=== PATIENT | female | born 1975 | race Caucasian/White ===

== ENCOUNTER 2023-04-24 06:28 | Outpatient (OUT) | payer BC, SELFPAY ==
[2023-04-24 06:47] LABS: Basophils Absolute Auto 0.1 10^3/uL (0.0-0.1); Basophils Percent Auto 0.7 % (0.2-2.0); Eosinophils Absolute Auto 0.5 10^3/uL (0.0-0.7); Eosinophils Percent Auto 3.4 % (0.9-7.0); Hemoglobin 14.5 g/dL (12.0-16.0); Immature Granulocytes Abs Auto 0.05 10^3/uL (0.00-0.03); Immature Granulocytes Pct Auto 0.3 % (0.0-0.5); Lymphocytes Absolute Auto 3.4 10^3/uL (1.2-3.8); Lymphocytes Percent Auto 22.7 % (20.5-60.0); Mean Corpuscular HGB Conc 33.7 g/dL (29.9-35.2); Mean Corpuscular Volume 91.9 fL (81.0-99.0); Mean Platelet Volume 10.7 fL (9.5-13.5); Monocytes Absolute Auto 1.2 10^3/uL (0.3-0.8); Monocytes Percent Auto 8.3 % (1.7-12.0); Neutrophils Absolute Auto 9.5 10^3/uL (1.4-6.5); Neutrophils Percent Auto 64.6 % (43.0-75.0); Platelet Count 314 10^3/uL (150-450); Red Blood Count 4.68 10^6/uL (4.20-5.40); Red Cell Distribution Width 12.8 % (11.0-15.0); White Blood Count 14.8 10^3/uL (4.0-11.0)
[2023-04-24 07:15] LABS: Estimated Average Glucose 120 mg/dL; Glycohemoglobin A1C 5.8 % (4.5-6.2)
[2023-04-24 08:04] LABS: Anion Gap 15.7; Carbon Dioxide 24.1 mmol/L (21.0-32.0); Chloride 105 mmol/L (98-107); Glucose 96 mg/dL (74-106); Potassium 3.8 mmol/L (3.5-5.1); Sodium 141 mmol/L (136-145)
[2023-04-24 08:05] LABS: Alanine Aminotransferase 25 U/L (14-59); Albumin Globulin Ratio 0.9; Albumin Level 3.5 g/dL (3.4-5.0); Alkaline Phosphatase 76 U/L (46-116); Aspartate Amino Transferase 12 U/L (15-37); BUN Creatinine Ratio 16.5; Bilirubin Total 0.3 mg/dL (0.2-1.0); Estimated GFR (African America >60 (>=60); Estimated GFR (Non-African Ame >60 (>=60); Total Protein 7.5 g/dL (6.4-8.2); Triglycerides 152 mg/dL (<=150); VLDL CHOLESTEROL 30.4 mg/dL
[2023-04-24 08:06] LABS: Cholesterol 251 mg/dL (<=200); HDL Cholesterol 63 mg/dL (40-60); TSH W/ REFLEX FT4 1.715 uIU/mL (0.358-3.740)
[2023-04-25 05:07] LABS: HCV Ab Non Reactive (Non Reactive); HIV Ab/p24 Ag Screen Non Reactive (Non Reactive)
== END 2023-04-24 06:29 | disposition home or self-care (01) ==
LOC: LAB 06:28
PROVIDERS: PCP Nurse Practitioner Primary Care; Visit Provider Nurse Practitioner Primary Care
DX: Z00.00 Encounter for general adult medical examination without abnormal findings (principal); Z11.59 Encounter for screening for other viral diseases; Z11.4 Encounter for screening for human immunodeficiency virus [HIV]; Z13.6 Encounter for screening for cardiovascular disorders; Z13.29 Encounter for screening for other suspected endocrine disorder
CPT/HCPCS: 36415; 80053; 80061; 83036; 84443; 85025; 86803; 87389

== ENCOUNTER 2023-04-25 08:51 | Outpatient (OUT) | payer BC, SELFPAY ==
--- OUTSIDE RECORDS SUMMARY | 2023-04-25 08:53 | XMS_ITS | CCD ---
Author Name Unknown Address [address] [place] [address] Organization [facility] Care Team Providers Care Mine Foreman Name Role Phone LASHAWN, MARYJO Admitting Unavailable HOY ., DR GUERRIER Primary Care Unavailable LASHAWN, MARYJO Attending Unavailable LASHAWN, MARYJO Consulting Unavailable HEMMER, DR JL Pradhan Consulting Unavailable HOY ., DR GUERRIER Primary Care Unavailable LASHAWN, MARYJO Admitting Unavailable LASHAWN, MARYJO Attending Unavailable LASHAWN, MARYJO Consulting Unavailable LASHAWN, MARYJO Admitting Unavailable HOY ., DR GUERRIER Primary Care Unavailable LASHAWN, MARYJO Attending Unavailable LASHAWN, MARYJO Consulting Unavailable HOY ., DR GUERRIER Primary Care Unavailable LASHAWN, MARYJO Admitting Unavailable LASHAWN, MARYJO Attending Unavailable LASHAWN, MARYJO Consulting Unavailable HOY ., DR GUERRIER Primary Care Unavailable LASHAWN, MARYJO Admitting Unavailable LASHAWN, MARYJO Attending Unavailable LASHAWN, MARYJO Consulting Unavailable Allergies Allergy Classification Reported Allergen(s) Allergy Type Date of Onset Reaction(s) Facility (1 source) metroNIDAZOLE Drug Allergy 03-02-2014 [facility] Repository Problems Active Problems Problem Classification Problem Date Documented Da te Episodic/Chronic Immunizations and screening for infectious disease (1 source) Encounter for screening for other infectious and parasitic diseases; Translations: [ENC SCREENING OTH INF PARASITIC DZ] Onset: 07-09-2022 Episodic Unclassified (3 sources) CONTACT W/AND (SUSP) EXPOS COVID-19; Translations: [CONTACT W/AND (SUSP) EXPOS COVID-19] Onset: 07-09-2022 Viral infection (1 source) COVID-19; Translations: [COVID-19] Onset: 01-11-2022 Past or Other Problems Problem Classification Problem Date Documented Da te Episodic/Chronic Unclassified (1 source) CONTACT W/AND (SUSP) EXPOS COVID-19; Translations: [CONTACT W/AND (SUSP) EXPOS COVID-19] Onset: 06-29-2022 Results Test Name Value Interpretation Reference Range Facil ity INFLUENZA A AND B AGon 06-29 INFLUBNEGH SEE BELOW Normal [facility] Comment on above: Result Comment: Nega tive for Flu B protein antigen. Infection due to Flu B cannot be ruled out. Flu B antigen in the sample may be below the detection limit of the test. Performed By: #### I NFLUAB #### [facility] [address] [place] [address] Dr. Minoo Mcguire INFLUENZA A AG Positive Abnormal NEGATIVE SEE COMMENT [facility] Comment on above: Performed By: #### I NFLUAB #### [facility] [address] [place] [address] Dr. Minoo Mcguire INFLUENZA B AG Negative Normal NEGATIVE SEE COMMENT [facility] Comment on above: Performed By: #### I NFLUAB #### [facility] [address] [place] [address] Dr. Minoo Mcguire INFLUPOSH SEE BELOW Normal [facility] Comment on above: Result Comment: NOTE : Live attenuated influenzae vaccine viruses can cause a positive result for a rapid influenza diagnostic test if administered up to 7 days prior to rapid testing. Performed By: #### I NFLUAB #### [facility] [address] [place] [address] Dr. Minoo Mcguire SYMPTOMATIC COVID-19 ANTIGEN on 06-29-2022 EUA Statement SEE BELOW Normal The [facility] Comment on above: Result Comment: This test has not been FDA cleared or approved, but has been authorized by the FDA under an Emergency Use Authorization (EUA) for use by authorized laboratories certified under CLIA that meet the requirements to perform moderate or high complexity testing. This test has been authorized only for the detection of proteins from SARS-CoV-2, not for any other viruses or pathogens. The emergency use of this test is authorized for the duration of the declaration that circumstances exist justifying the authorization of emergency use of in vitro diagnostic tests for detection and/or diagnosis of Covid-19 under section 564(b)(1) of the Act, 21 U.S.C. 360bbb-3(b)(1), unless the declaration is terminated or authorization is revoked sooner. Performed By: #### C ELIASS #### [facility] [address] [place] [address] Dr. Minoo Mcguire SARS-CoV-2 (COVID-19) RNA NARINDER+probe Ql (Unsp spec) Negative Normal NEGATIVE [facility] Comment on above: Performed By: #### C VDAGS #### [facility] [address] [place] [address] Dr. Minoo Mcguire ASYMPTOMATIC COVID-19 ANTIGE Non 01-10-2022 EUA Statement SEE BELOW Normal [facility] Comment on above: Result Comment: This test has not been FDA cleared or approved, but has been authorized by the FDA under an Emergency Use Authorization (EUA) for use by authorized laboratories certified under CLIA that meet the requirements to perform moderate or high complexity testing. This test has been authorized only for the detection of proteins from SARS-CoV-2, not for any other viruses or pathogens. The emergency use of this test is authorized for the duration of the declaration that circumstances exist justifying the authorization of emergency use of in vitro diagnostic tests for detection and/or diagnosis of Covid-19 under section 564(b)(1) of the Act, 21 U.S.C. 360bbb-3(b)(1), unless the declaration is terminated or authorization is revoked sooner. Performed By: #### C VDAGA #### [facility] [address] [place] [address] Dr. Minoo Mcguire SARS-CoV-2 (COVID-19) RNA NARINDER+probe Ql (Unsp spec) Negative Normal NEGATIVE [facility] Comment on above: Result Comment: Nega tive results are presumptive. They do not preclude infection and should not be used as the sole basis for treatment decisions. Additional confirmatory testing by a molecular method should be considered. Performed By: #### C VDAGA #### [facility] [address] [place] [address] Dr. Minoo Mcguire [facility]on SARS-CoV-2 (COVID-19) RNA NARINDER+probe Ql (Unsp spec) Detected Critically abnormal NOT DETECTED [facility] Comment on above: Result Comment: This test is not yet approved or cleared by the [place] FDA. When there are no FDA-approved or cleared tests available, and other criteria are met, FDA can make tests available under an emergency access mechanism called an Emergency Use Authorization (EUA). The EUA for this test is supported by the Fermentation Scientist of Health and Human Service's declaration that circumstances exist to justify the emergency use of in vitro diagnostics for the detection and/or diagnosis of the virus that causes COVID-19. This EUA will remain in effect for the duration of the COVID-19 declaration justifying emergency of IVDs, unless it is terminated or revoked by the FDA (after which the test may no longer be used). Performed By: #### C VDTB #### [facility] [address] [place] [address] Dr. Minoo Mcguire SYMPTOMATIC COVID-19 ANTIGEN on 01-08-2022 EUA Statement SEE BELOW Normal [facility] Comment on above: Result Comment: This test has not been FDA cleared or approved, but has been authorized by the FDA under an Emergency Use Authorization (EUA) for use by authorized laboratories certified under CLIA that meet the requirements to perform moderate or high complexity testing. This test has been authorized only for the detection of proteins from SARS-CoV-2, not for any other viruses or pathogens. The emergency use of this test is authorized for the duration of the declaration that circumstances exist justifying the authorization of emergency use of in vitro diagnostic tests for detection and/or diagnosis of Covid-19 under section 564(b)(1) of the Act, 21 U.S.C. 360bbb-3(b)(1), unless the declaration is terminated or authorization is revoked sooner. Performed By: #### C VDAGS #### [facility] [address] [place] [address] Dr. Minoo Mcguire SARS-CoV-2 (COVID-19) RNA NARINDER+probe Ql (Unsp spec) Positive Critically abnormal NEGATIVE [facility] Comment on above: Performed By: #### C VDAGS #### [facility] [address] [address] [address] Minoo Mcguire SYMPTOMATIC COVID-19 ANTIGEN on 01-01-2022 EUA Statement SEE BELOW Normal [facility] Comment on above: Result Comment: This test has not been FDA cleared or approved, but has been authorized by the FDA under an Emergency Use Authorization (EUA) for use by authorized laboratories certified under CLIA that meet the requirements to perform moderate or high complexity testing. This test has been authorized only for the detection of proteins from SARS-CoV-2, not for any other viruses or pathogens. The emergency use of this test is authorized for the duration of the declaration that circumstances exist justifying the authorization of emergency use of in vitro diagnostic tests for detection and/or diagnosis of Covid-19 under section 564(b)(1) of the Act, 21 U.S.C. 360bbb-3(b)(1), unless the declaration is terminated or authorization is revoked sooner. Performed By: #### C VDAGS #### [facility] [address] [address] [address] Minoo Mcguire SARS-CoV-2 (COVID-19) RNA NARINDER+probe Ql (Unsp spec) Positive Critically abnormal NEGATIVE [facility] Comment on above: Performed By: #### C VDAGS #### [facility] [address] [address] [address] Minoo Mcguire Encounters Encounter Date Encounter Type Care Provider Facility Start: 06-29-2022 End: 06-29-[address] FAREED BRONSON . Facility:[facility] Start: 01-10-2022 End: 01-10-[address] FAREED BRONSON . Facility:[facility] Start: 01-09-2022 End: 01-09-2022 ambulatory MARYJO HARDIN Facility:[facility] Start: 01-08-2022 End: 01-08-[address] FAREED BRONSON . Facility:[facility] Start: 01-01-2022 End: 01-01-2022 ambulatory MARYJO HARDIN Facility:[facility] Payers Date Payer Category Payer Unknown [id number] 2019 Unknown [id number] 1975 Unknown [id number] 2.16.84 [id number] 1975 Unknown [id number] 2.16.84 [id number] 1975 Unknown [id number] 2.16.84 [id number] 1975 Unknown [id number] 2.16.84 [id number] 1975 Unknown [id number] 2.16.84 [id number] Summary Purpose Family History No Family History Records Found Advance Directives No Advanced Directives Records Found Additional Source Comments INFORMATION SOURCE (unrecogn ized section and content) DATE CREATED AUTHOR 07/12/2022 [facility] FOR RECORDS PERTAINING TO PATIENTS WHO ARE OR HAVE BEEN ENROLLED IN A CHEMICAL DEPENDENCY/SUBSTANCEABUSE PROGRAM, SOME INFORMATION MAY BE OMITTED. This clinical summary was aggregated from multiple sources. Caution should be exercised in using it in the provision of clinical care. This summary normalizes information from multiple sources, and as a consequence, information in this document may materially change the coding, format and clinical context of patient data. In addition, data may be omitted in some cases. CLINICAL DECISIONS SHOULD BE BASED ON THE PRIMARY CLINICAL RECORDS. [facility] [facility]. provides no warranty or guarantee of the accuracy or completeness of information in this document.
--- NOTE | 2023-04-25 08:54 | MM_ITS ---
Patient Name: JOSIAH HANSEN MR#: [id number] : 1975 Exam Date: 04/25/2023 Ordering Doctor: JOHAN TOMAS RADIOLOGY REPORT PROCEDURE: MM TOMOSYNTHESIS SCREENING BI COMPARISON: MG MAMM SCREEN MARGY W CAD, 01/09/2018. MAMMO MARGY SCREEN, 06/29/2021. INDICATIONS: Screening Calculator Name NCI Breast Cancer Risk Assessment Tool 5 Year Breast Cancer Risk 0.60% Lifetime Breast Cancer Risk 6.10% Personal Breast Cancer No Personal Ovarian Cancer No Treatments None Family Cancers Grandmother-paternal with breast cancer at age 70; Uncle-maternal with lung cancer at age 72. LOCATION: [facility] BREAST COMPOSITION: Heterogeneously dense,which may obscure small masses. FINDINGS: DIAGNOSTIC CATEGORY 2--BENIGN FINDING. NO CHANGE FROM COMPARISON. Scattered benign-appearing calcifications are present. Scattered benign-appearing lymph nodes are present. RIGHT BREAST: No significant suspicious finding. LEFT BREAST: No significant suspicious finding. RECOMMENDATIONS: ROUTINE MAMMOGRAM AND CLINICAL EVALUATION IN 12 MONTHS. PLEASE NOTE: A NORMAL MAMMOGRAM DOES NOT EXCLUDE THE POSSIBILITY OF BREAST CANCER. A CLINICALLY SUSPICIOUS PALPABLE LUMP SHOULD BE BIOPSIED. Dictated by: Orville Hoffmann MD on 04/29/2023 at 08:06 Approved by: Orville Hoffmann MD on 04/29/2023 at 08:08
== END 2023-04-25 08:52 | disposition home or self-care (01) ==
LOC: MAMMO 08:52
PROVIDERS: PCP Nurse Practitioner Primary Care; Visit Provider Nurse Practitioner Primary Care
DX: Z12.31 Encounter for screening mammogram for malignant neoplasm of breast (principal); Z80.3 Family history of malignant neoplasm of breast; Z80.1 Family history of malignant neoplasm of trachea, bronchus and lung
CPT/HCPCS: 77063; 77067

== ENCOUNTER 2023-08-05 07:58 | Outpatient (OUT) | payer BC, SELFPAY ==
--- OUTSIDE RECORDS SUMMARY | 2023-08-05 08:01 | XMS_ITS | CCD ---
Author Organization [facility] Care Team Providers Care Protein Scientist Name Role Phone KAYLEE HARDINISTINA Admitting Unavailable HOY ., DR GUERRIER Primary Care Unavailable LASHAWN, MARYJO Attending Unavailable LASHAWN, MARYJO Consulting Unavailable HEMMER, DR LJ Pradhan Consulting Unavailable HOY ., DR GUERRIER [...] MARYJO Attending Unavailable LASHAWN, MARYJO Consulting Unavailable AGUEDA LEDESMA Attending Unavailable Allergies Allergy Classification Reported Allergen(s) Allergy Type Date of Onset Reaction(s) Facility (1 source) metroNIDAZOLE Drug Allergy 03-02-2014 [facility] Repository Problems Active Problems Problem Classification [...] Results Test Name Value Interpretation Reference Range Saloni flanagan Provider Letteron 05-07-2023 Provider Letter May 07, 2023 JOSIAH ARRINGTON [address] [place] [address] : 1975 Dear Ms. Arrington, We have been trying to reach you with no success regarding a referral from [facility]. It is important that you return our call upon receiving this letter so that we can set up an appointment for you. Also, at the time of your call, please provide us with your current demographic and insurance information. Thank you for your prompt attention to this matter. Sincerely, [facility] General Surgery [phone] [facility] Physician Referralon 024 Physician Referral [phone] [id number] Normal [facility] INFLUENZA A AND B AGon 06-29 INFLUBNEGH SEE BELOW Normal [facility] Comment on above: Result Comment: Nega tive for Flu B protein antigen. Infection due to Flu B cannot be ruled out. Flu B antigen in the sample may be below the detection limit of the test. Performed By: #### I NFLUAB #### [facility] [address] [place] [address] Dr. Minoo Mcguire INFLUENZA A AG Positive Abnormal NEGATIVE SEE COMMENT [facility] Comment on above: Performed By: #### I NFLUAB #### [facility] [address] [place] [address] Dr. Minoo Mcguire INFLUENZA B AG Negative Normal NEGATIVE SEE COMMENT [facility] Comment on above: Performed By: #### I NFLUAB #### [facility] [address] [place] [address] Dr. Minoo Mcguire INFLUPOSH SEE BELOW Normal [facility] Comment on above: Result Comment: NOTE : Live attenuated influenzae vaccine viruses can cause a positive result for a rapid influenza diagnostic test if administered up to 7 days prior to rapid testing. Performed By: #### I NFLUAB #### [facility] [address] [place] [address] Dr. Minoo Mcguire SYMPTOMATIC COVID-19 ANTIGEN on 06-29-2022 EUA Statement SEE BELOW Normal [facility] Comment on above: Result Comment: This [...] sooner. Performed By: #### C VDAGS #### [facility] [address] [place] [address] Dr. Minoo Mcguire SARS-CoV-2 (COVID-19) RNA NARINDER+probe Ql (Unsp spec) Negative Normal NEGATIVE [facility] Comment on above: Performed By: #### C VDAGS #### [facility] [address] [place] [address] Dr. Minoo Mcguire ASYMPTOMATIC COVID-19 ANTIGE Non 01-10-2022 EUA Statement SEE BELOW Normal [facility] Comment on above: Result Comment: This [...] sooner. Performed By: #### C VDAGA #### [facility] [address] [place], [place] [address] Dr. Minoo Mcguire SARS-CoV-2 (COVID-19) RNA NARINDER+probe Ql (Unsp spec) Negative Normal NEGATIVE [facility] Comment on above: Result Comment: Nega tive results are presumptive. They do not preclude infection and should not be used as the sole basis for treatment decisions. Additional confirmatory testing by a molecular method should be considered. Performed By: #### C VDAGA #### [facility] [address] [place], [place] [address] Dr. Minoo Mcguire Covid-19 PCR (CVDTB)on SARS-CoV-2 (COVID-19) RNA NARINDER+probe Ql (Unsp spec) Detected Critically abnormal NOT DETECTED [facility] Comment on above: Result Comment: This test is not yet approved or cleared by the [place] FDA. When there are no FDA-approved or cleared tests available, and other criteria are met, FDA can make tests available under an emergency access mechanism called an Emergency Use Authorization (EUA). The EUA for this test is supported by the Shipmaster of Health and Human Service's declaration that [...] longer be used). Performed By: #### C VDTBH #### [facility] [address] [place], [place] [address] Dr. Minoo Mcguire SYMPTOMATIC COVID-19 ANTIGEN on 01-08-2022 EUA Statement SEE BELOW Normal [facility] Comment on above: Result Comment: This [...] sooner. Performed By: #### C VDAGS #### [facility] [address] [place] [address] Dr. Minoo Mcguire SARS-CoV-2 (COVID-19) RNA NARINDER+probe Ql (Unsp spec) Positive Critically abnormal NEGATIVE [facility] Comment on above: Performed By: #### C VDAGS #### [facility] [address] [place] [address] Dr. Minoo Mcguire SYMPTOMATIC COVID-19 ANTIGEN on 01-01-2022 EUA Statement SEE BELOW Normal [facility] Comment on above: Result Comment: This [...] sooner. Performed By: #### C VDAGS #### [facility] [address] [place] [address] Dr. Minoo Mcguire SARS-CoV-2 (COVID-19) RNA NARINDER+probe Ql (Unsp spec) Positive Critically abnormal NEGATIVE [facility] Comment on above: Performed By: #### C VDAGS #### [facility] [address] [place] [address] Dr. Minoo Mcguire Encounters Encounter Date Encounter Type Care Provider Facility Start: 07-25-2023 End: 07-25-2023 ambulatory AGUEDA LEDESMA Not Available Start: 04-23-2023 ambulatory Facility:[facility] Start: 06-29-2022 End: 06-29-[address] FAREED BROSNON . Facility:[facility] Start: 01-10-2022 End: 01-10-[address] FAREED BRONSON . Facility:[facility] Start: 01-09-2022 End: 01-09-2022 ambulatory MARYJO HARDIN Facility:[facility] Start: 01-08-2022 End: 01-08-[address] FAREED BRONSON . Facility:[facility] Start: 01-01-2022 End: 01-01-2022 ambulatory MARYJO LASHAWN Facility:[facility] Payers Date Payer Category Payer Unknown [id number] 2019 Unknown [id number] 1975 Unknown [id number] 2.16.84 [id number] 1975 Unknown [id number] 2.16.84 [id number] 1975 Unknown [id number] 2.16.84 [id number] 1975 Unknown [id number] 2.16.84 [id number] 1975 Unknown [id number] 2.16.84 [id number] 1975 Unknown [id number] 2.16.84 [id number] Summary Purpose Family History No Family History Records FoundNo Family History Records FoundNo Family History Records Found Advance Directives No Advanced Directives Records FoundNo Advanced Directives Records FoundNo Advanced Directives Records Found Additional Source Comments INFORMATION SOURCE (unrecogn ized section and content) DATE CREATED AUTHOR 07/12/2022 [facility] DATE CREATED AUTHOR AUTHOR'S ORGANIZ ATION 05/08/2023 [facility] DATE CREATED AUTHOR AUTHOR'S ORGANIZ ATION 07/26/2023 [facility] FOR RECORDS PERTAINING TO PATIENTS WHO ARE [...] BE BASED ON THE PRIMARY CLINICAL RECORDS. [facility]: [facility]. provides no warranty or guarantee of the accuracy or completeness of information in this document.
--- NOTE | 2023-08-05 08:02 | US_ITS ---
Patient Name: JOSIAH HANSEN MR#: [id number] : 1975 Exam Date: 08/05/2023 Ordering Doctor: YONI Sahni . RADIOLOGY REPORT PROCEDURE: US BREAST LT LIMITED COMPARISON: MM TOMOSYNTHESIS SCREENING BI, 04/25/2023. MM TOMOSYNTHESIS DIAGNOSTIC LT, 08/05/2023. INDICATIONS: Left Breast Pain N64.4 TECHNIQUE: Breast ultrasound was performed, with evaluation focusing only on specific areas of concern. FINDINGS: DIAGNOSTIC CATEGORY 2--BENIGN FINDING: Ultrasound demonstrates multiple dilated ducts extending from the nipple . No intraductal nodule mass or filling defect is observed. No mammographic or ultrasound abnormality to correspond to the patient's breast pain. Further evaluation should be based on clinical and physical exam RECOMMENDATIONS: ROUTINE MAMMOGRAM AND CLINICAL EVALUATION IN 12 MONTHS. PLEASE NOTE: A NORMAL ULTRASOUND EXAMINATION DOES NOT EXCLUDE THE POSSIBILITY OF BREAST CANCER. A CLINICALLY SUSPICIOUS PALPABLE LUMP SHOULD BE BIOPSIED. Dictated by: Orville Hoffmann MD on 08/07/2023 at 11:19 Approved by: Orville Hoffmann MD on 08/07/2023 at 11:23
--- NOTE | 2023-08-05 08:03 | MM_ITS ---
Patient Name: JOSIAH HANSEN MR#: [id number] : 1975 Exam Date: 08/05/2023 Ordering Doctor: YONI Sahni . RADIOLOGY REPORT PROCEDURE: MM TOMOSYNTHESIS DIAGNOSTIC LT COMPARISON: MM TOMOSYNTHESIS SCREENING BI, 04/25/2023. MAMMO MARGY SCREEN, 06/29/2021. INDICATIONS: Left Breast Pain N64.4 Calculator Name NCI Breast Cancer Risk Assessment Tool 5 Year Breast Cancer Risk 0.60% Lifetime Breast Cancer Risk 6.10% Personal Breast Cancer No Personal Ovarian Cancer No Treatments None Family Cancers Grandmother-paternal with breast cancer at age 70; Uncle-maternal with lung cancer at age 72. LOCATION: [facility] BREAST COMPOSITION: The breasts are heterogeneously dense,which may obscure small masses. FINDINGS: DIAGNOSTIC CATEGORY 1--NEGATIVE. LEFT BREAST: No significant suspicious finding. No significant change has occurred. RECOMMENDATIONS: ROUTINE MAMMOGRAM AND CLINICAL EVALUATION IN 12 MONTHS. PLEASE NOTE: A NORMAL MAMMOGRAM DOES NOT EXCLUDE THE POSSIBILITY OF BREAST CANCER. A CLINICALLY SUSPICIOUS PALPABLE LUMP SHOULD BE BIOPSIED. Dictated by: Drake Fraser M.D. on 08/05/2023 at 13:09 Approved by: Drake Fraser M.D. on 08/05/2023 at 13:12
== END 2023-08-05 07:59 | disposition home or self-care (01) ==
LOC: US 07:58
PROVIDERS: Visit Provider Physician Assistant
DX: N64.4 Mastodynia (principal)
CPT/HCPCS: 76642; 77065; G0279

== ENCOUNTER 2023-10-05 08:28 | Outpatient (OUT) | payer BC, SELFPAY ==
--- NOTE | 2023-10-05 | XR_ITS ---
The [address] [address] Patient Name: JOSIAH HANSEN MRN: [id number] date: 1975 Sex: F Assigned Patient Location: [facility] Current Patient Location: Accession/Order Number: [id number] Exam Date: 10/05/2023 11:30 Report Date: 10/07/2023 12:49 At the request of: YOLA LUO Procedure: XR knee LT 4V PROCEDURE: XR knee LT 4V HISTORY: Lt Knee PAin M25.562 ; medial knee pain deep to patella COMPARISON: None. FINDINGS: BONES:No fracture, acute abnormality, or significant arthropathy. SOFT TISSUES:No visible soft tissue swelling. EFFUSION:Moderate joint effusion. OTHER: Negative. XR/XR knee LT 4V IMPRESSION: 1. Moderate size joint effusion. 2. No acute bone abnormality or significant degenerative changes. Electronically authenticated by: BARRINGTON CHERY Date: 10/07/2023 12:49
--- OUTSIDE RECORDS SUMMARY | 2023-10-05 08:32 | XMS_ITS | CCD ---
Author Organization [facility] Care Team Providers Care Tipple Engineer Name Role Phone KAYLEE HARDINISTINA Admitting Unavailable [...] (1 source) metroNIDAZOLE Drug Allergy 03-02-2014 [facility] Repository Problems Active Problems Problem Classification [...] May 07, 2023 JOSIAH ARRINGTON [address] [place] [address] : 1975 Dear Ms. Arrington, We have been trying to reach you with no success regarding a referral from [facility]. It is important that you return our call upon receiving this letter so that we can set up an appointment for you. Also, at the time of your call, please provide us with your current demographic and insurance information. Thank you for your prompt attention to this matter. Sincerely, [facility] General Surgery [phone] Normal [facility] Physician Referralon 024 Physician Referral [phone] [id number] Normal [facility] INFLUENZA A AND B AGon 06-29 INFLUBNEGH SEE BELOW Normal [facility] Comment on above: Result Comment: Nega tive for Flu B protein antigen. Infection due to Flu B cannot be ruled out. Flu B antigen in the sample may be below the detection limit of the test. Performed By: #### I NFLUAB #### [facility] [address] [place] [address] Dr. Minoo Mcguire INFLUENZA A AG Positive Abnormal NEGATIVE SEE COMMENT [facility] Comment on above: Performed By: #### I NFLUAB #### [facility] [address] [place] [address] Dr. Minoo Mcguire INFLUENZA B AG Negative Normal NEGATIVE SEE COMMENT [facility] Comment on above: Performed By: #### I NFLUAB #### [facility] [address] [place] [address] Dr. Minoo Mcguire INFLUPOSH SEE BELOW Normal [facility] Comment on above: Result Comment: NOTE : Live attenuated influenzae vaccine viruses can cause a positive result for a rapid influenza diagnostic test if administered up to 7 days prior to rapid testing. Performed By: #### I NFLUAB #### [facility] [address] [place] [address] Dr. Minoo Mcguire SYMPTOMATIC COVID-19 ANTIGEN on 06-29-2022 EUA Statement SEE BELOW Normal [facility] Comment on above: Result Comment: This [...] sooner. Performed By: #### C VDAGS #### [facility] [address] [place] [address] Dr. Minoo Mcguire SARS-CoV-2 (COVID-19) RNA NARINDER+probe Ql (Unsp spec) Negative Normal NEGATIVE [facility] Comment on above: Performed By: #### C VDAGS #### [facility] [address] [place] [address] Dr. Minoo Mcguire ASYMPTOMATIC COVID-19 ANTIGE Non 01-10-2022 EUA Statement SEE BELOW Normal [facility] Comment on above: Result Comment: This [...] sooner. Performed By: #### C VDAGA #### [facility] [address] [place] [address] Dr. Minoo Mcguire SARS-CoV-2 (COVID-19) RNA NARINDER+probe Ql (Unsp spec) Negative Normal NEGATIVE [facility] Comment on above: Result Comment: Nega tive results are presumptive. They do not preclude infection and should not be used as the sole basis for treatment decisions. Additional confirmatory testing by a molecular method should be considered. Performed By: #### C VDAGA #### [facility] [address] [place] [id number] Minoo Mcguire Covid-19 PCR (CVDTB)on SARS-CoV-2 (COVID-19) RNA NARINDER+probe Ql (Unsp spec) Detected Critically abnormal NOT DETECTED [facility] Comment on above: Result Comment: This test is not yet approved or cleared by the [place] FDA. When there are no FDA-approved or cleared tests available, and other criteria are met, FDA can make tests available under an emergency access mechanism called an Emergency Use Authorization (EUA). The EUA for this test is supported by the [place] of Health and Human Service's declaration that [...] used). Performed By: #### C VDTBH #### [facility] [address] [place] [id number] Minoo Mcguire SYMPTOMATIC COVID-19 ANTIGEN on 01-08-2022 EUA Statement SEE BELOW Normal [facility] Comment on above: Result Comment: This [...] sooner. Performed By: #### C VDAGS #### [facility] [address] [place] [address] Dr. Minoo Mcguire SARS-CoV-2 (COVID-19) RNA NARINDER+probe Ql (Unsp spec) Positive Critically abnormal NEGATIVE [facility] Comment on above: Performed By: #### C VDAGS #### [facility] [address] [place] [address] Dr. Minoo Mcguire SYMPTOMATIC COVID-19 ANTIGEN on 01-01-2022 EUA Statement SEE BELOW Normal [facility] Comment on above: Result Comment: This [...] sooner. Performed By: #### C VDAGS #### [facility] [address] [place] [address] Dr. Minoo Mcguire SARS-CoV-2 (COVID-19) RNA NARINDER+probe Ql (Unsp spec) Positive Critically abnormal NEGATIVE [facility] Comment on above: Performed By: #### C VDAGS #### [facility] [address] [place] [address] Dr. Minoo Mcguire Encounters Encounter Date Encounter [...] Facility:[facility] Payers Date Payer Category Payer Unknown [id number] 2019 Unknown [id number] 1975 Unknown [id number] 2.16.84 [id number] 1975 Unknown [id number] 2.16.84 [id number] 1975 Unknown [id number] 2.16.84 [id number] 1975 Unknown [id number] 2.16.84 [id number] 1975 Unknown [id number] 2.16.84 [id number] 1975 Unknown [id number] 2.16.84 [id number] Summary Purpose Family History No Family History Records FoundNo Family History Records FoundNo Family History Records Found Advance Directives No Advanced Directives Records FoundNo Advanced Directives Records FoundNo Advanced Directives Records Found Additional Source Comments INFORMATION SOURCE (unrecogn ized section and content) DATE CREATED AUTHOR 07/12/2022 [facility] DATE CREATED AUTHOR AUTHOR'S ORGANIZ ATION 05/08/2023 [facility] DATE CREATED AUTHOR AUTHOR'S ORGANIZ ATION 07/26/2023 [facility] EPIC FOR RECORDS PERTAINING TO PATIENTS WHO ARE [...] BE BASED ON THE PRIMARY CLINICAL RECORDS. [facility]. provides no warranty or guarantee of the accuracy or completeness of information in this document.
== END 2023-10-05 08:29 | disposition home or self-care (01) ==
LOC: RAD 08:30
PROVIDERS: Visit Provider Nurse Practitioner
DX: M25.562 Pain in left knee (principal)
CPT/HCPCS: 73564

== ENCOUNTER 2024-07-21 07:03 | Outpatient (OUT) | payer BC, SELFPAY ==
--- OUTSIDE RECORDS SUMMARY | 2024-07-21 07:06 | XMS_ITS | CCD ---
Author Organization [facility] Care Team Providers Care Data Architect Name Role Phone KAYLEE PEREZISTINA Admitting Unavailable HOY ., DR GUERRIER Primary Care Unavailable LASHAWN, BREANNE Attending Unavailable LASHAWN, BREANNE Consulting Unavailable HEMMER, DR LJ Pradhan Consulting Unavailable HOY ., DR GUERRIER Primary Care Unavailable LASHAWN, BREANNE Admitting Unavailable LASHAWN, BREANNE Attending Unavailable LASHAWN, BREANNE Consulting Unavailable LASHAWN, BREANNE Admitting Unavailable HOY ., DR GUERRIER Primary Care Unavailable LASHAWN, BREANNE Attending Unavailable LASHAWN, BREANNE Consulting Unavailable HOY ., DR GUERRIER Primary Care Unavailable LASHAWN, BREANNE Admitting Unavailable LASHAWN, BREANNE Attending Unavailable LASHAWN, BREANNE Consulting Unavailable HOY ., DR GUERRIER Primary Care Unavailable LASHAWN, BREANNE Admitting Unavailable LASHAWN, BREANNE Attending Unavailable LASHAWN, BREANNE Consulting Unavailable Case Moe MD Primary Care Provider [phone] FAY LEDESMA Attending Unavailable TIEN CHACKO Attending Unavailable Allergies Allergy Classification Reported Allergen(s) Allergy Type Date of Onset Reaction(s) Facility (1 source) [facility] Allergy 03-02-2014 [facility] Repository (6 sources) [facility] Drug Allergy 07-25-2023 Other [facility] Work Phone: Medications Current Medications Medication Drug Class(es) Dates Sig (Normalized) Sig (Original) 24 hr venlafaxine 37.5 mg extended release oral capsule (2 sources) Serotonin and Norepinephrine Reuptake Inhibitor Start: 07-20-2024 End: 07-20-2025 take 1 capsule by mouth once daily venlafaxine XR (Effexor XR) 37.5 MG 24 hr capsule Indications: Perimenopausal vasomotor symptoms Take 1 capsule (37.5 mg) by mouth Daily Do not crush or chew. 30 capsule 5 07/20/2024 07/20/2025 Active Completed/Discontinued Medications Medication Drug Class(es) Dates Sig (Normalized) Sig (Original) azithromycin 250 mg oral tablet (4 sources) Macrolide Antimicrobial Start: 07-09-2024 End: 07-20-2024 take 1 tablet by mouth once daily azithromycin (Zithromax Z-Hadley) 250 MG tablet Indications: Abscess of toe, right Take 1 tablet (250 mg) by mouth Daily for 5 days Use as directed 6 tablet 07/09/2024 07/20/2024 Discontinued (Therapy completed) Problems Active Problems Problem Classification Problem Date Documented Da te Episodic/Chronic Immunizations and screening for infectious disease (1 source) Encounter for screening for other infectious and parasitic diseases; Translations: [ENC SCREENING OTH INF PARASITIC DZ] Onset: 07-09-2022 Episodic Menopausal disorders (2 sources) Menopausal flushing; Translations: [Menopausal and female climacteric states] 07-20-2024 Chronic Mycoses (2 sources) Onychomycosis; Translations: [Tinea unguium] 07-09-2024 Episodic Other connective tissue disease (2 sources) Pain of toe of right foot; Translations: [Pain in right toe(s)] 07-09-2024 Episodic Other connective tissue disease (2 sources) Pain of toe of left foot; Translations: [Pain in left toe(s)] 07-09-2024 Episodic Other endocrine disorders (2 sources) Disorder of endocrine system; Translations: [Endocrine disorder, unspecified] 07-20-2024 Episodic Other gastrointestinal disorders (2 sources) Dysphagia; Translations: [Dysphagia, unspecified] 07-20-2024 Episodic Other skin disorders (2 sources) Ingrowing nail; Translations: [Ingrowing nail] 07-09-2024 Episodic Skin and subcutaneous tissue infections (2 sources) Abscess of toe of right foot; Translations: [Cutaneous abscess of right foot] 07-09-2024 Episodic Unclassified (3 sources) CONTACT W/AND (SUSP) EXPOS COVID-19; Translations: [CONTACT W/AND (SUSP) EXPOS COVID-19] Onset: 07-09-2022 Viral infection (1 source) COVID-19; Translations: [COVID-19] Onset: 01-11-2022 Past or Other Problems Problem Classification Problem Date Documented Da te Episodic/Chronic Unclassified (1 source) CONTACT W/AND (SUSP) EXPOS COVID-19; Translations: [CONTACT W/AND (SUSP) EXPOS COVID-19] Onset: 06-29-2022 Results Test Name Value Interpretation Reference Range Facil ity Provider Letteron 05-07-2023 Provider Letter May 07, 2023 K[facility]INGTON [address] [facility] [place] [address] : 1975 Dear Ms. Arrington, We have [...] your prompt attention to this matter. Sincerely, [facility] General Surgery [phone] Normal [facility] Physician Referralon 024 Physician Referral [id number] Normal [facility] INFLUENZA A AND B AGon 06-29 INFLUBNEGH SEE BELOW Normal [facility] Comment on above: Result Comment: Nega tive for Flu B protein antigen. Infection due to Flu B cannot be ruled out. Flu B antigen in the sample may be below the detection limit of the test. Performed By: #### I NFLUAB #### [facility] [address] [address] [address] Minoo Mcguire INFLUENZA A AG Positive Abnormal NEGATIVE SEE COMMENT [facility] Comment on above: Performed By: #### I NFLUAB #### [facility] [address] [address] [address] Minoo Mcguire INFLUENZA B AG Negative Normal NEGATIVE SEE COMMENT [facility] Comment on above: Performed By: #### I NFLUAB #### [facility] [address] [place] [address] Dr. Minoo Mcguire INFLUPOSH SEE BELOW Normal [facility] Comment on above: Result Comment: NOTE : Live attenuated influenzae vaccine viruses can cause a positive result for a rapid influenza diagnostic test if administered up to 7 days prior to rapid testing. Performed By: #### I NFLUAB #### [facility] [address] [place] [address] Dr. Minoo Mcguire SYMPTOMATIC COVID-19 ANTIGEN on 06-29-2022 EUA Statement SEE BELOW Normal [facility] Comment on above: Result Comment: [...] sooner. Performed By: #### C VDAGS #### [facility] [address] [place] [address] Dr. Minoo Mcguire SARS-CoV-2 (COVID-19) RNA NARINDER+probe Ql (Unsp spec) Negative Normal NEGATIVE [facility] Comment on above: Performed By: #### C VDAGS #### [facility] [address] [place] [address] Dr. Minoo Mcguire ASYMPTOMATIC COVID-19 ANTIGE Non 01-10-2022 EUA Statement SEE BELOW Normal [facility] Comment on above: Result Comment: [...] sooner. Performed By: #### C VDAGA #### [facility] [address] [place] [address] Dr. Minoo Mcguire SARS-CoV-2 (COVID-19) RNA NARINDER+probe Ql (Unsp spec) Negative Normal NEGATIVE [facility] Comment on above: Result Comment: Nega tive results are presumptive. They do not preclude infection and should not be used as the sole basis for treatment decisions. Additional confirmatory testing by a molecular method should be considered. Performed By: #### C VDAGA #### [facility] [address] [place] [address] Dr. Minoo Mcguire Covid-19 PCR (CVDTB)on SARS-CoV-2 (COVID-19) RNA NARINDER+probe Ql (Unsp spec) Detected Critically abnormal NOT DETECTED [facility] Comment on above: Result Comment: This test is not yet approved or cleared by the [place] FDA. When there are no FDA-approved or cleared tests available, and other criteria are met, FDA can make tests available under an emergency access mechanism called an Emergency Use Authorization (EUA). The EUA for this test is supported by the [place] of Health and Human Service's declaration that [...] used). Performed By: #### C VDTBH #### [facility] [address] [place] [address] Dr. Minoo Mcguire SYMPTOMATIC COVID-19 ANTIGEN on 01-08-2022 EUA Statement SEE BELOW Normal [facility] Comment on above: Result Comment: [...] sooner. Performed By: #### C VDAGS #### [facility] [address] [place] [address] Dr. Minoo Mcguire SARS-CoV-2 (COVID-19) RNA NARINDER+probe Ql (Unsp spec) Positive Critically abnormal NEGATIVE [facility] Comment on above: Performed By: #### C VDAGS #### [facility] [address] [place] [address] Dr. Minoo Mcguire SYMPTOMATIC COVID-19 ANTIGEN on 01-01-2022 EUA Statement SEE BELOW Normal [facility] Comment on above: Result Comment: [...] sooner. Performed By: #### C VDAGS #### [facility] [address] [place] [address] Dr. Minoo Mcguire SARS-CoV-2 (COVID-19) RNA NARINDER+probe Ql (Unsp spec) Positive Critically abnormal NEGATIVE [facility] Comment on above: Performed By: #### C VDAGS #### [facility] [address] [address] [address] Minoo Mcguire Vital Signs Date Time Vital Sign Value Performing Clinician Nanette coleman 07-20-2024 13:17-0400 Body mass index (BMI) [Ratio] 35.02 kg/m2 Breanne Perez BUSINESS APPLICATIONS DEVELOPER Work Phone: [facility] 07-20-2024 13:17-0400 Body weight 92.53 kg Breanne Perez BUSINESS APPLICATIONS DEVELOPER Work Phone: [facility] 07-20-2024 13:17-0400 Diastolic blood pressure 84 mm[Hg] Breanne Perez BUSINESS APPLICATIONS DEVELOPER Work Phone: [facility] 07-20-2024 13:17-0400 Systolic blood pressure 128 mm[Hg] Breanne Perez BUSINESS APPLICATIONS DEVELOPER Work Phone: [facility] 07-09-2024 14:03-0400 Body height 162.6 cm Tien Chacko DPM Work Phone: [facility] 07-09-2024 14:03-0400 Body mass index (BMI) [Ratio] 34.33 kg/m2 Tien Chacko DPM Work Phone: [facility] 07-09-2024 14:03-0400 Body weight 90.72 kg Tien Chacko DPM Work Phone: [facility] 07-09-2024 14:03-0400 Respiratory rate 18 /min Tien Chacko DPM Work Phone: [facility] Encounters Encounter Date Encounter Type Care Provider Facility Start: 07-20-2024 End: 07-20-2024 Bamboo flowsheet Breanne Perez BUSINESS APPLICATIONS DEVELOPER Work Phone: [facility] Start: 07-20-2024 End: 07-20-2024 Bamboo flowsheet Breanne Perez BUSINESS APPLICATIONS DEVELOPER Work Phone: [facility] Start: 07-20-2024 End: 07-20-2024 Office outpatient visit 15 minutes Breanne Perez BUSINESS APPLICATIONS DEVELOPER Work Phone: [facility] Comment on above: Hormone disorder (Pr imary Dx); Dysphagia, unspecified type; Perimenopausal vasomotor symptoms Start: 07-09-2024 End: 07-09-2024 Office outpatient new 30 minutes Tien Chacko DPM Work Phone: [facility] Comment on above: Onychocryptosis (Lilian brandon Dx); Toe pain, right; Abscess of toe, right; Onychomycosis; Toe pain, left Start: 07-09-2024 End: 07-09-2024 Bamboo flowsheet Tien Chacko DPM Work Phone: [facility] Start: 07-09-2024 End: 07-09-2024 Bamboo flowsheet Tien Chacko DPM Work Phone: [facility] Start: 07-09-2024 End: 07-09-2024 ambulatory ITEN CHACKO Not Available Start: 07-25-2023 End: 07-25-2023 ambulatory FAY LEDESMA Not Available Start: 04-23-2023 ambulatory Facility:[facility] Start: 06-29-2022 End: 06-29-[address] FAREED BRONSON . Facility: Start: 01-10-2022 End: 01-10-[address] FAREED BRONSON . Facility:[facility] Start: 01-09-2022 End: 01-09-2022 ambulatory BREANNE PEREZ Facility:[facility] Start: 01-08-2022 End: 01-08-[address] FAREED BRONSON . Facility:[facility] Start: 01-01-2022 End: 01-01-2022 ambulatory BREANNE PEREZ Facility:[facility] Procedures Date Procedure Procedure Detail Performing Clinician Start: 06-29-2021 Mammography Tien nieves DPM Work Phone: Plan of Treatment Date Care Activity Detail Author Start: 08-12-2024 End: 08-12-2024 Patient encounter procedure 08/12/2024 3:00 PM EDT Office Visit [facility] [address] [place] [id number] Fay Ledesma PA [address] [place] [address] [facility] Start: 07-23-2024 End: 07-23-2024 Patient encounter procedure 07/23/2024 9:40 AM EDT Office Visit [facility] [address] [facility] [address] [place] [id number] Tien Chacko, DPLorne [address] [facility] [address] [place] [address] [facility] Start: 07-20-2024 End: 07-20-2025 C-peptide C-peptide Lab Routine Hormone disorder Expected: 07/20/2024 (Approximate), Expires: 07/20/2025 [facility] Comment on above: Expected: 07/20/2024 (Approximate), Expires: 07/20/2025 Start: 07-20-2024 End: 07-20-2025 Cortisol free Cortisol, free Lab Routine Hormone disorder Expected: 07/20/2024 (Approximate), Expires: 07/20/2025 [facility] Comment on above: Expected: 07/20/2024 (Approximate), Expires: 07/20/2025 Start: 07-20-2024 End: 07-20-2025 Glucose [Mass/volume] in Serum or Plasma Glucose, random Lab Routine Hormone disorder Expected: 07/20/2024 (Approximate), Expires: 07/20/2025 [facility] Comment on above: Expected: 07/20/2024 (Approximate), Expires: 07/20/2025 Start: 07-20-2024 End: 07-20-2025 Insulin, total Insulin, total Lab Routine Hormone disorder Expected: 07/20/2024 (Approximate), Expires: 07/20/2025 [facility] Comment on above: Expected: 07/20/2024 (Approximate), Expires: 07/20/2025 Start: 07-20-2024 End: 07-20-2025 Serotonin serum Serotonin serum Lab Routine Hormone disorder Expected: 07/20/2024 (Approximate), Expires: 07/20/2025 [facility] Comment on above: Expected: 07/20/2024 (Approximate), Expires: 07/20/2025 Start: 07-20-2024 End: 07-20-2025 Thyroglobulin Thyroglobulin Lab Routine Hormone disorder Expected: 07/20/2024 (Approximate), Expires: 07/20/2025 [facility] Comment on above: Expected: 07/20/2024 (Approximate), Expires: 07/20/2025 Start: 07-20-2024 End: 07-20-2025 Thyroglobulin Antibody Thyroglobulin Antibody Lab Routine Hormone disorder Expected: 07/20/2024 (Approximate), Expires: 07/20/2025 [facility] Comment on above: Expected: 07/20/2024 (Approximate), Expires: 07/20/2025 Start: 07-20-2024 End: 07-20-2025 Thyrotropin [Units/volume] in Serum or Plasma [facility] Comment on above: Ordered: 07/20/2024 Expected: 07/20/2024 (Approximate), Expires: 07/20/2025 Start: 07-20-2024 End: 07-20-2025 US Thyroid gland US thyroid Imaging Routine Dysphagia, unspecified type Expected: 07/20/2024, Expires: 07/20/2025 [facility] Comment on above: Expected: 07/20/2024 , Expires: 07/20/2025 Start: 07-20-2024 End: 07-20-2024 Patient encounter procedure [facility] Comment on above: Arrived Start: 07-09-2024 End: 07-09-2024 Patient encounter procedure 07/09/2024 2:10 PM EDT Office Visit [facility] [address] [facility] [address] [place] [address] Tien Chacko DPM [address] [facility] [address] [place] [address] Arrived [facility] Comment on above: Arrived Start: 06-29-2022 Screening for malign ant neoplasm of breast Mammogram [facility] Start: 1975 Screening for malign ant neoplasm of colon [facility] DHEA-sulfate DHEA-sulfate Lab Routine Hormone disorder Ordered: 07/20/2024 [facility] Comment on above: Ordered: 07/20/2024 Estradiol Estradiol Lab Ro utine Hormone disorder Ordered: 07/20/2024 [facility] Work Phone: Comment on above: Ordered: 07/20/2024 Estrone Estrone Lab Rout ine Hormone disorder Ordered: 07/20/2024 [facility] Comment on above: Ordered: 07/20/2024 Ferritin [Mass/volum e] in Serum or Plasma Ferritin Lab Routine Hormone disorder Ordered: 07/20/2024 [facility] Comment on above: Ordered: 07/20/2024 Progesterone Progesterone Lab Routine Hormone disorder Ordered: 07/20/2024 [facility] Comment on above: Ordered: 07/20/2024 Sex hormone binding globulin Sex hormone binding globulin Lab Routine Hormone disorder Ordered: 07/20/2024 [facility] Comment on above: Ordered: 07/20/2024 T3, reverse T3, reverse Lab Routine Hormone disorder Ordered: 07/20/2024 [facility] Comment on above: Ordered: 07/20/2024 TESTOSTERONE, FREE TESTOSTERONE, FREE Lab Routine Hormone disorder Ordered: 07/20/2024 [facility] Comment on above: Ordered: 07/20/2024 Testosterone, free, total Testos terone, free, total Lab Routine Hormone disorder Ordered: 07/20/2024 [facility] Comment on above: Ordered: 07/20/2024 Thyroid peroxidase antibody Thyroid peroxidase antibody Lab Routine Hormone disorder Ordered: 07/20/2024 [facility] Comment on above: Ordered: 07/20/2024 Thyroxine (T4) free [Mass/volume] in Serum or Plasma T4, free Lab Routine Hormone disorder Ordered: 07/20/2024 [facility] Comment on above: Ordered: 07/20/2024 Triiodothyronine (T3 ) Free [Mass/volume] in Serum or Plasma T3, free Lab Routine Hormone disorder Ordered: 07/20/2024 [facility] Comment on above: Ordered: 07/20/2024 Payers Date Payer Category Payer [employer] [id number] 2022 Unknown [id number] 2019 Unknown [id number] 1975 Unknown [id number] 1975 Unknown [id number] 1975 Unknown [id number] 1975 Unknown [id number] 1975 Unknown [id number] 1975 Unknown [id number] 1975 Unknown [id number] Social History Date Type Detail Facility Start: 11-26-2022 End: 07-09-2024 Tobacco smoking status TNIS Smokes tobacco daily [facility] History of tobacco use Cigarette Smoker [facility] Start: 07-25-2023 End: 07-09-2024 Alcoholic beverage intake Current drinker of alcohol (finding) [facility] Start: 07-25-2023 End: 07-09-2024 History of Social function [facility] Start: 07-25-2023 End: 07-09-2024 Tobacco use panel [facility] Start: 11-26-2022 Alcohol Comment 2-4x a month i n the past year [facility] Start: 1975 Sex assigned at Not on file N [facility] History of Present illness Narrative 07-20-2024 Breanne Perez NP - 07/20/2024 1:10 PM EDT Note Date & Type Note Facility 07-20-2024 History of Presen t illness Narrative Reason for Appointment: Patient ID: Katharine Arrington is a 49 y.o. female who presents for Menopause Patient presents today for Acute Visit. MEDICATIONS Current Outpatient Medications Medication Instructions venlafaxine XR (EFFEXOR XR) 37.5 mg, Oral, Daily, Do not crush or chew. ALLERGIES Allergies Allergen Reactions Flagyl [Metronidazole] Other neuro PROBLEMS Active Ambulatory Problems Diagnosis Date Noted No Active Ambulatory Problems Resolved Ambulatory Problems Diagnosis Date Noted No Resolved Ambulatory Problems Past Medical History: Diagnosis Date Diverticulitis of colon without hemorrhage Insomnia Leucocytosis Lumbar radiculopathy, right HISTORY PAST MEDICAL HISTORY SOCIAL HISTORY Past Medical History: Diagnosis Date Diverticulitis of colon without hemorrhage Insomnia Leucocytosis Lumbar radiculopathy, right Social History Tobacco Use Smoking status: Every Day Current packs/day: 0.25 Types: Cigarettes Smokeless tobacco: Not on file Substance Use Topics Alcohol use: Yes Comment: 2-4x a month in the past year Drug use: Not on file FAMILY HISTORY Family History Problem Relation Name Age of Onset Heart disease Father Stroke Maternal Grandmother Heart disease Maternal Grandfather Cancer Paternal Grandmother SURGICAL HISTORY Past Surgical History: Procedure Laterality Date APPENDECTOMY CHOLECYSTECTOMY 1996 CYST REMOVAL from Thigh DILATION AND CURETTAGE x2 HYSTERECTOMY OTHER SURGICAL HISTORY 2010 Uterine Ablation PELVIC LAPAROSCOPY TONSILLECTOMY 1990 WISDOM TOOTH EXTRACTION REVIEW OF SYSTEMS Review of Systems: Review of Systems Constitutional: Positive for fatigue, night sweats and hot flashes. HENT: Positive for trouble swallowing. Concerned about my thyroid. Feels like my food gets stuck Eyes: Negative. Respiratory: Negative. Cardiovascular: Negative. Gastrointestinal: Negative. Genitourinary: Negative. Musculoskeletal: Negative. Skin: Negative. Neurological: Negative. All other systems reviewed and are negative. Hematological: Negative. Allergic/Immunologic: Negative. OBJECTIVE Objective: Physical Exam Constitutional: Appearance: Normal appearance. She is well-developed. Cardiovascular: Rate and Rhythm: Normal rate and regular rhythm. Pulmonary: Effort: Pulmonary effort is normal. Breath sounds: Normal breath sounds. Abdominal: General: Bowel sounds are normal. There is no distension. Palpations: Abdomen is soft. Tenderness: There is no abdominal tenderness. There is no guarding or rebound. Musculoskeletal: General: No swelling. Normal range of motion. Right lower leg: No edema. Left lower leg: No edema. Neurological: Mental Status: She is alert and oriented to person, place, and time. Skin: General: Skin is warm and dry. Psychiatric: Mood and Affect: Mood normal. Behavior: Behavior normal. Vitals and nursing note reviewed. Exam conducted with a continuity clerk present. Vitals: Estimated body mass index is 35.02 kg/m as calculated from the following: Height as of 07/09/24: 5' 4 . Weight as of this encounter: 204 lb. BP: 128/84 No LMP recorded. Patient has had a hysterectomy. ASSESSMENT & PLAN Patient with complaints of perimenopausal symptoms. Patient reports hot flashes, Weight gain, mood changes and feeling as if my body swells throughout the day . The patient also reports difficulty swallowing while eating and feeling of food getting stuck . Patient currently does not have a PCP. We discussed baseline labs today given her vasomotor symptoms and concern for menopause. Given her concern with difficulty with swallowing a thyroid ultrasound is ordered and we discussed PCP currently taking new patients for further follow up. She has not had a pelvic exam/ PAP in a very long time . Patient is going to schedule her PAP in the next few weeks and we review labs and ultrasound at this time. Documented by Breanne Perez NP on behalf of: Breanne Perez NP documented in this encounter [facility] History of Present illness Narrative 07-09-2024 Tien Chacko DPM - 07/09/2024 2:10 PM EDT Note Date & Type Note Facility 07-09-2024 History of Presen t illness Narrative Patient: Katharine Arrington : 1975 PCP: Case Moe MD SUBJECTIVE This is a 49 y.o. female that presents today with a CC of ingrowing right hallux toenail Pt states problem has been present for the past few weeks. Pt has noticed positive drainage to the affected area and states pain is achey in nature. Treatments have consisted of soaking and trying to remove the ingrown nail on their own with no relief. Patient has had longstanding issue with ingrowing nail and presents today for treatment Patient also has longstanding issues with yellow thick nails that are sometimes painful with ambulation in shoe gear Allergies: Allergies Allergen Reactions Flagyl [Metronidazole] Other neuro Past Medical History: Past Medical History: Diagnosis Date Diverticulitis of colon without hemorrhage Insomnia Leucocytosis Lumbar radiculopathy, right Medications: No current outpatient medications on file. Social History: Social History Socioeconomic History Marital status: Spouse name: Not on file Number of children: Not on file Years of education: Not on file Highest education level: Not on file Occupational History Not on file Tobacco Use Smoking status: Every Day Current packs/day: 0.25 Types: Cigarettes Smokeless tobacco: Not on file Substance and Sexual Activity Alcohol use: Yes Comment: 2-4x a month in the past year Drug use: Not on file Sexual activity: Not on file Other Topics Concern Not on file Social History Narrative Not on file Social Drivers of Health Financial Resource Strain: Not on file Food Insecurity: Not on file Transportation Needs: Not on file Physical Activity: Not on file Stress: Not on file Social Connections: Not on file Intimate Partner Violence: Not on file Housing Stability: Not on file ROS: General: denies fever, chills, fatigue, malaise Gastrointestinal: denies abdominal pain, ulcers, or changes in appetite or bowel habits Musculoskeletal: denies arthritis, denies loss of strength, pain to hip, knees, back Cardiovascular: denies CP, palpitations, irregular rhythms OBJECTIVE LE EXAM: DERM: Positive erythema and slight serous drainage from the medial right hallux with hair growth noted to b/l feet. VASC: Palpable pedal pulsed b/l with warm to cool tibia to toes b/l NEURO: Gross sensation intact digits 1-10 and b/l feet ORTHO: Ankle ROM less than 10 degrees b/l. Positive pain on palpation to medial right hallux ASSESSMENT 1. Onychocryptosis 2. Toe pain, right 3. Abscess of toe, right PLAN Patient to continue with oral anti - inflammatories as needed for pain and recommended OTC medications such as tylenol or Ibuprofen Discussed possible treatment options including a permanent nail avulsion and patient may consider in the future. Performed I and D of abcess with partial removal of nail to access infection to the right toenail. Pt informed of risks and benefits of procedure including infection,pain,bleeding, reoccurance. Pt consents. Next, 3cc of xylocaine 2% plain injected into affected digit for anesthesia. The affected toe was prepped and draped in usual sterile manner and offending nail was removed with minimal blood loss and positive serosanguinous drainage noted. Wound then was flushed with NSS and DSD applied to digit. Pt is to have a prescription for an antibiotic. Briefly discussed Lamisil treatment for fungal nails Tien Chacko DPM documented in this encounter [facility] Evaluation note Note Date & Type Note Facility Evaluation note Diagnosis Onychocryptosis- Primary Ingrowing nail Toe pain, right Pain in soft tissues of limb Abscess of toe, right Onychomycosis Dermatophytosis of nail Toe pain, left Pain in soft tissues of limb documented in this encounter [facility] Evaluation note Note Date & Type Note Facility Evaluation note Diagnosis Hormone disorder- Primary Unspecified endocrine disorder Dysphagia, unspecified type Perimenopausal vasomotor symptoms Onychocryptosis- Primary Ingrowing nail Toe pain, right Pain in soft tissues of limb Abscess of toe, right Onychomycosis Dermatophytosis of nail Toe pain, left Pain in soft tissues of limb documented in this encounter [facility] Summary Purpose Family History No Family History Records FoundNo Family History Records FoundNo Family History Records Found Advance Directives No Advanced Directives Records FoundNo Advanced Directives Records FoundNo Advanced Directives Records Found Additional Source Comments INFORMATION SOURCE (unrecogn ized section and content) DATE CREATED AUTHOR 07/12/2022 [facility] DATE CREATED AUTHOR AUTHOR'S ORGANIZ ATION 05/08/2023 [facility] DATE CREATED AUTHOR AUTHOR'S ORGANIZ ATION 07/12/2024 [facility] EPIC Care Teams (unrecognized sec tion and content) Data Architect Relationship Specialty Start Date End Date Case Moe MD [address] [facility] [address] [place] [address] PCP - General Internal Medicine 08/14/22 Data Architect Relationship Specialty Start Date End Date Case Moe MD [address] [facility] [address] [place] [address] PCP - General Internal Medicine 08/14/22 Data Architect Relationship Specialty Start Date End Date Case Moe MD [address] [facility] [address] [place] [address] PCP - General Internal Medicine 08/14/22 Data Architect Relationship Specialty Start Date End Date Case Moe MD [address] [facility] [address] [place] [address] PCP - General Internal Medicine 08/14/22 Reason for Visit (unrecogniz ed section and content) Reason Comments Ingrown Toenail Bl gt ingrown Reason Comments Menopause FOR RECORDS PERTAINING TO PATIENTS WHO ARE [...] BE BASED ON THE PRIMARY CLINICAL RECORDS. [employer] provides no warranty or guarantee of the accuracy or completeness of information in this document.
[2024-07-21 08:49] LABS: Free T3 3.45 pg/mL (2.18-3.98); Glucose 97 mg/dL (74-106); Thyroid Stimulating Hormone 1.573 uIU/mL (0.358-3.740)
[2024-07-21 09:46] LABS: Free T4 1.23 ng/dL (0.76-1.46)
[2024-07-22 04:07] LABS: C-Peptide, Serum 2.8 ng/mL (1.1-4.4); Estradiol 19.5 pg/mL (.); Insulin 12.8 uIU/mL (2.6-24.9); Progesterone 0.1 ng/mL (.); Sex Horm Binding Glob, Serum 18.7 nmol/L (17.3-125.0)
[2024-07-22 16:10] LABS: Thyroglobulin Antibody <1.0 IU/mL (0.0-0.9); Thyroid Peroxidase (TPO) Ab 11 IU/mL (0-34)
[2024-07-23 14:08] LABS: Estrone, Serum 26 pg/mL (.)
[2024-07-24 17:10] LABS: Free Testosterone(Direct) 1.6 pg/mL (0.0-4.2); Testosterone 13 ng/dL (4-50)
[2024-07-25 17:09] LABS: Reverse T3, Serum 19.6 ng/dL (9.2-24.1)
[2024-07-27 15:08] LABS: Serotonin, Serum 83 ng/mL (31-207)
[2024-07-27 22:08] LABS: Cortisol, Free Dialysis, LCMS 0.348 ug/dL (.)
== END 2024-07-21 07:04 | disposition home or self-care (01) ==
PROVIDERS: Visit Provider Nurse Practitioner Family
DX: E34.9 Endocrine disorder, unspecified (principal)
CPT/HCPCS: 36415; 82530; 82627; 82670; 82679; 82728; 82947; 83525; 84144; 84260; 84270; 84402; 84403; 84436; 84439; 84443; 84481; 84482; 84681; 86376; 86800

== ENCOUNTER 2024-07-22 06:56 | Outpatient (OUT) | payer BC, SELFPAY ==
--- NOTE | 2024-07-22 | US_ITS ---
The [address] [address] Patient Name: JOSIAH HANSEN MRN: [id number] date: 1975 Sex: F Assigned Patient Location: [place] Current Patient Location: [place] Accession/Order Number: [id number] Exam Date: 07/22/2024 08:03 Report Date: 07/22/2024 08:05 At the request of: MARYJO HARDIN Procedure: US thyroid THYROID ULTRASOUND CLINICAL DATA: Dysphagia COMPARISON: None The right thyroid lobe measures 4.9 x 1.5 x 1.2 cm. The left lobe measures 4.5 x 1.9 x 1.4 cm. The isthmus measures 2 - 3 mm . Following cysts are seen bilaterally measuring under 5 mm in size. No solid nodules are noted. US/US thyroid IMPRESSION: TINY COLLOID CYSTS. Impression dictated by: Debbie Nieto M.D.07/22/2024 8:05 AM Dictation Location: [place] [address] Electronically authenticated by: [id number] Y Date: 07/22/2024 08:05
--- OUTSIDE RECORDS SUMMARY | 2024-07-22 06:58 | XMS_ITS | CCD ---
Author Organization [facility] Care Team Providers Care Horse Race Starter Name Role Phone KAYLEE PEREZISTINA Admitting Unavailable HOY ., DR GUERRIER Primary Care Unavailable CHRIS, BREANNE Attending Unavailable CHRIS, BREANNE Consulting Unavailable HEMMER, DR LJ Pradhan Consulting Unavailable HOY ., DR GUERRIER Primary Care Unavailable CHRIS, BREANNE Admitting Unavailable CHRIS, BREANNE Attending Unavailable CHRIS, BREANNE Consulting Unavailable CHRIS, BREANNE Admitting Unavailable HOY ., DR GUERRIER Primary Care Unavailable CHRIS, BREANNE Attending Unavailable CHRIS, BREANNE Consulting Unavailable HOY ., DR GUERRIER Primary Care Unavailable CHRIS, BREANNE Admitting Unavailable CHRIS, BREANNE Attending Unavailable CHRIS, BREANNE Consulting Unavailable HOY ., DR GUERRIER Primary Care Unavailable CHRIS, BREANNE Admitting Unavailable CHRIS, BREANNE Attending Unavailable CHRIS, BREANNE Consulting Unavailable Case Moe MD Primary Care Provider [phone] FAY LEDESMA Attending Unavailable TIEN CHACKO Attending Unavailable CHRIS, BREANNE Attending Unavailable Allergies Allergy Classification Reported Allergen(s) Allergy Type Date of Onset Reaction(s) Facility (1 source) [facility] Allergy 03-02-2014 [facility] Repository (7 sources) [facility] Drug Allergy 07-25-2023 Other [facility] Work Phone: Medications Current Medications Medication Drug Class(es) Dates Sig (Normalized) Sig (Original) 24 hr venlafaxine 37.5 mg extended release oral capsule (3 sources) Serotonin and Norepinephrine Reuptake Inhibitor Start: [...] Results Test Name Value Interpretation Reference Range Facility ALL T3 FREEon 07-21-2024 Free T3 [Mass/Vol] 3.45 pg/mL 2.18 - 3. 98 pg/mL [facility] ALL THYROID STIM HORMONEon 0 07-21-2024 TSH Qn 1.573 m[IU]/L [facility] ALL THYROXINE (T4)on 025 T4 [Mass/Vol] 9.1 ug/dL 4.80 - 13.90 ug/dL [facility] No [facility] B[facility] 07-22-19 25 Glucose [Mass/Vol] 97 mg/dL 74 - 106 mg/dL NO [facility] Provider Letteron 05-07-2023 Provider Letter May 07, 2023 KATHARINE ARRINGTON [address] [place] [address] : 1975 Dear Ms. Arrington, We have [...] your prompt attention to this matter. Sincerely, [facility] General Surgery [phone] [facility] Physician Referralon 024 Physician Referral [phone] [id number] Normal [facility] INFLUENZA A AND B AGon 06-29 INFLUBNEGH SEE BELOW Normal [facility] Comment on above: Result Comment: Nega tive for Flu B protein antigen. Infection due to Flu B cannot be ruled out. Flu B antigen in the sample may be below the detection limit of the test. Performed By: #### I NFLUAB #### [facility] [address] [place] [address] Dr. Minoo Mcguire INFLUENZA A AG Positive Abnormal NEGATIVE SEE COMMENT [facility] Comment on above: Performed By: #### I NFLUAB #### [facility] [address] [place] [address] Dr. Minoo Mcguire INFLUENZA B AG Negative Normal NEGATIVE SEE COMMENT [facility] Comment on above: Performed By: #### I NFLUAB #### [facility] [address] [place] [address] Dr. Minoo Mcguire INFLUPOSH SEE BELOW Normal [facility] Comment on above: Result Comment: NOTE : Live attenuated influenzae vaccine viruses can cause a positive result for a rapid influenza diagnostic test if administered up to 7 days prior to rapid testing. Performed By: #### I NFLUAB #### [facility] [address] [place] [address] Dr. Minoo Mcguire SYMPTOMATIC COVID-19 ANTIGEN on 06-29-2022 EUA Statement SEE BELOW Normal [facility] Comment on above: Result Comment: This [...] sooner. Performed By: #### C VDAGS #### [facility] [address] [place] [address] Dr. Minoo Mcguire SARS-CoV-2 (COVID-19) RNA NARINDER+probe Ql (Unsp spec) Negative Normal NEGATIVE [facility] Comment on above: Performed By: #### C VDAGS #### [facility] [address] [place] [address] Dr. Minoo Mcguire ASYMPTOMATIC COVID-19 ANTIGE Non 01-10-2022 EUA Statement SEE BELOW Normal [facility] Comment on above: Result Comment: This [...] sooner. Performed By: #### C VDAGA #### [facility] [address] [place] [address] Dr. Minoo Mcguire SARS-CoV-2 (COVID-19) RNA NARINDER+probe Ql (Unsp spec) Negative Normal NEGATIVE [facility] Comment on above: Result Comment: Nega tive results are presumptive. They do not preclude infection and should not be used as the sole basis for treatment decisions. Additional confirmatory testing by a molecular method should be considered. Performed By: #### C VDAGA #### [facility] [address] [place] [address] Dr. Minoo Mcguire Covid-19 PCR (CVDTB)on SARS-CoV-2 (COVID-19) RNA NARINDER+probe Ql (Unsp spec) Detected Critically abnormal NOT DETECTED [facility] Comment on above: Result Comment: This test is not yet approved or cleared by the [place] FDA. When there are no FDA-approved or cleared tests available, and other criteria are met, FDA can make tests available under an emergency access mechanism called an Emergency Use Authorization (EUA). The EUA for this test is supported by the Bible Reader of Health and Human Service's declaration that [...] used). Performed By: #### C VDTBH #### [facility] [address] [place] [address] Dr. Minoo Mcguire SYMPTOMATIC COVID-19 ANTIGEN on 01-08-2022 EUA Statement SEE BELOW Normal [facility] Comment on above: Result Comment: This [...] sooner. Performed By: #### C VDAGS #### [facility] [address] [place] [address] Dr. Minoo Mcguire SARS-CoV-2 (COVID-19) RNA NARINDER+probe Ql (Unsp spec) Positive Critically abnormal NEGATIVE [facility] Comment on above: Performed By: #### C VDAGS #### [facility] [address] [place] [address] Dr. Minoo Mcguire SYMPTOMATIC COVID-19 ANTIGEN on 01-01-2022 EUA Statement SEE BELOW Normal [facility] Comment on above: Result Comment: This [...] sooner. Performed By: #### C VDAGS #### [facility] [address] [place] [address] Dr. Minoo Mcguire SARS-CoV-2 (COVID-19) RNA NARINDER+probe Ql (Unsp spec) Positive Critically abnormal NEGATIVE [facility] Comment on above: Performed By: #### C VDAGS #### [facility] [address] [place] [address] Dr. Minoo Mcguire Vital Signs Date Time Vital Sign Value Performing Clinician Faci lity 07-20-2024 13:17-0400 Body mass index (BMI) [Ratio] 35.02 kg/m2 Breanne Perez CREOSOTING ENGINEER Work Phone: [facility] 07-20-2024 13:17-0400 Body weight 92.53 kg Breanne Perez CREOSOTING ENGINEER Work Phone: [facility] 07-20-2024 13:17-0400 Diastolic blood pressure 84 mm[Hg] Breanne Perez CREOSOTING ENGINEER Work Phone: [facility] 07-20-2024 13:17-0400 Systolic blood pressure 128 mm[Hg] Breanne Perez CREOSOTING ENGINEER Work Phone: [facility] 07-09-2024 14:03-0400 Body height 162.6 cm Tien Chacko DPM Work Phone: [facility] 07-09-2024 14:03-0400 Body mass index (BMI) [Ratio] 34.33 kg/m2 Tien Chacko DPM Work Phone: [facility] 07-09-2024 14:03-0400 Body weight 90.72 kg Tien Chacko DPM Work Phone: [facility] 07-09-2024 14: Respiratory rate 18 /min Tien Chacko DPM Work Phone: [facility] Healthcare Encounters Encounter Date Encounter Type Care Provider Facility Start: 07-21-2024 End: 07-21-2024 Clinisync Result Encounter Breanne Perez CREOSOTING ENGINEER Work Phone: [facility] External Department Unsolicited Start: 07-21-2024 End: 07-21-2024 Clinisync Result Encounter Breanne Perez CREOSOTING ENGINEER Work Phone: [facility] External Department Unsolicited Start: 07-20-2024 End: 07-20-2024 Bamboo flowsheet Breanne Chris CREOSOTING ENGINEER Work Phone: [facility] Start: 07-20-2024 End: 07-20-2024 Bamboo flowsheet Breannelynn Abbasierly CREOSOTING ENGINEER Work Phone: [facility] Start: 07-20-2024 End: 07-20-2024 Office outpatient visit 15 minutes Breanne Perez CREOSOTING ENGINEER Work Phone: [facility] Comment on above: Hormone disorder (Pr imary Dx); Dysphagia, unspecified type; Perimenopausal vasomotor symptoms Start: 07-20-2024 End: 07-20-2024 ambulatory BREANNE CHRIS Not Available Start: 07-09-2024 End: 07-09-2024 Office outpatient new 30 minutes Tien Chacko DPM Work Phone: [facility] Comment on above: Onychocryptosis (Lilian brandon Dx); Toe pain, right; Abscess of toe, right; Onychomycosis; Toe pain, left Start: 07-09-2024 End: 07-09-2024 Bamboo flowsheet Tien Chacko DPM Work Phone: [facility] Start: 07-09-2024 End: 07-09-2024 Bamboo flowsheet Tien Chacko DPM Work Phone: [facility] Start: 07-09-2024 End: 07-09-2024 ambulatory TIEN CHACKO Not Available Start: 07-25-2023 End: 07-25-2023 ambulatory FAY LEDESMA Not Available Start: 04-23-2023 ambulatory Facility:[facility] Start: 06-29-2022 End: 06-29-[address] FAREED BRONSON . Facility: Start: 01-10-2022 End: 01-10-[address] FAREED BRONSON . Facility:[facility] Start: 01-09-2022 End: 01-09-2022 ambulatory BREANNE PEREZ Facility:[facility] Start: 01-08-2022 End: 01-08-[address] FAREED BRONSON . Facility: Start: 01-01-2022 End: 01-01-2022 ambulatory BREANNE PEREZ Facility: Procedures Date Procedure Procedure Detail Performing Clinician Start: 07-21-2024 ALL T3 FREE Breanne del real CREOSOTING ENGINEER Work Phone: Start: 07-21-2024 ALL THYROID STIM HORMONE Breanne Chris CREOSOTING ENGINEER Work Phone: Start: 07-21-2024 ALL THYROXINE (T4) Andrey lanre Perez CREOSOTING ENGINEER Work Phone: Start: 07-21-2024 [facility] GLUCOSE BLOOD Krist denice Chris CREOSOTING ENGINEER Work Phone: Start: 06-29-2021 Mammography Tien nieves DPM Work Phone: Plan of Treatment Date Care Activity Detail Author Start: 08-12-2024 End: 08-12-2024 Patient encounter procedure 08/12/2024 3:00 PM EDT [facility] Visit [facility] [address] [facility] [address] Fay Ledesma PA [address] [place] [address] [facility] Start: 07-23-2024 End: 07-23-2024 Patient encounter procedure 07/23/2024 9:40 AM EDT Office Visit [facility] [address] [facility] [address] [place] [address] Tien Chacko, GRETTA [address] [facility] [address] [place] [address] [facility] Start: 07-20-2024 End: 07-20-2025 C-peptide C-peptide Lab Routine Hormone disorder Expected: 07/20/2024 (Approximate), Expires: 07/20/2025 [facility] Healthcare Comment on above: Expected: 07/20/2024 (Approximate), Expires: 07/20/2025 Start: 07-20-2024 End: 07-20-2025 Cortisol free Cortisol, free Lab Routine Hormone disorder Expected: 07/20/2024 (Approximate), Expires: 07/20/2025 [facility] Healthcare Comment on above: Expected: 07/20/2024 (Approximate), Expires: 07/20/2025 Start: 07-20-2024 End: 07-20-2025 Glucose [Mass/volume] in Serum or Plasma Glucose, random Lab Routine Hormone disorder Expected: 07/20/2024 (Approximate), Expires: 07/20/2025 [facility] Healthcare Comment on above: Expected: 07/20/2024 (Approximate), Expires: 07/20/2025 Start: 07-20-2024 End: 07-20-2025 Insulin, total Insulin, total Lab Routine Hormone disorder Expected: 07/20/2024 (Approximate), Expires: 07/20/2025 [facility] Healthcare Comment on above: Expected: 07/20/2024 (Approximate), Expires: 07/20/2025 Start: 07-20-2024 End: 07-20-2025 Serotonin serum Serotonin serum Lab Routine Hormone disorder Expected: 07/20/2024 (Approximate), Expires: 07/20/2025 [facility] Healthcare Comment on above: Expected: 07/20/2024 (Approximate), Expires: 07/20/2025 Start: 07-20-2024 End: 07-20-2025 Thyroglobulin Thyroglobulin Lab Routine Hormone disorder Expected: 07/20/2024 (Approximate), Expires: 07/20/2025 [facility] Healthcare Comment on above: Expected: 07/20/2024 (Approximate), Expires: 07/20/2025 Start: 07-20-2024 End: 07-20-2025 Thyroglobulin Antibody Thyroglobulin Antibody Lab Routine Hormone disorder Expected: 07/20/2024 (Approximate), Expires: 07/20/2025 [facility] Comment on above: Expected: 07/20/2024 (Approximate), Expires: 07/20/2025 Start: 07-20-2024 End: 07-20-2025 Thyrotropin [Units/volume] in Serum or Plasma [facility] Comment on above: Ordered: 07/20/2024 Expected: 07/20/2024 (Approximate), Expires: 07/20/2025 Start: 07-20-2024 End: 07-20-2025 US Thyroid gland US thyroid Imaging Routine Dysphagia, unspecified type Expected: 07/20/2024, Expires: 07/20/2025 [facility] Comment on above: Expected: 07/20/2024 , Expires: 07/20/2025 Start: 07-20-2024 End: 07-20-2024 Patient encounter procedure [facility] Comment on above: Arrived Start: 07-09-2024 End: 07-09-2024 Patient encounter procedure 07/09/2024 2:10 PM EDT Office Visit [facility] [address] [address] Tien Chacko, DPM [address] [address] Arrived [facility] Comment on above: Arrived Start: 06-29-2022 Screening for malign ant neoplasm of breast Mammogram [facility] Healthcare Start: 1975 Screening for malign ant neoplasm of colon [facility] Healthcare DHEA-sulfate DHEA-sulfate Lab Routine Hormone disorder Ordered: 07/20/2024 [facility] Comment on above: Ordered: 07/20/2024 Estradiol Estradiol Lab Ro utine Hormone disorder Ordered: 07/20/2024 [facility] Work Phone: Comment on above: Ordered: 07/20/2024 Estrone Estrone Lab Rout ine Hormone disorder Ordered: 07/20/2024 [facility] Comment on above: Ordered: 07/20/2024 Ferritin [Mass/volum e] in Serum or Plasma Ferritin Lab Routine Hormone disorder Ordered: 07/20/2024 [facility] Comment on above: Ordered: 07/20/2024 Progesterone Progesterone Lab Routine Hormone disorder Ordered: 07/20/2024 [facility] Comment on above: Ordered: 07/20/2024 Sex hormone binding globulin Sex hormone binding globulin Lab Routine Hormone disorder Ordered: 07/20/2024 [facility] Comment on above: Ordered: 07/20/2024 T3, reverse T3, reverse Lab Routine Hormone disorder Ordered: 07/20/2024 [facility] Comment on above: Ordered: 07/20/2024 TESTOSTERONE, FREE TESTOSTERONE, FREE Lab Routine Hormone disorder Ordered: 07/20/2024 [facility] Comment on above: Ordered: 07/20/2024 Testosterone, free, total Testos terone, free, total Lab Routine Hormone disorder Ordered: 07/20/2024 [facility] Comment on above: Ordered: 07/20/2024 Thyroid peroxidase antibody Thyroid peroxidase antibody Lab Routine Hormone disorder Ordered: 07/20/2024 [facility] Comment on above: Ordered: 07/20/2024 Thyroxine (T4) free [Mass/volume] in Serum or Plasma T4, free Lab Routine Hormone disorder Ordered: 07/20/2024 [facility] Comment on above: Ordered: 07/20/2024 Triiodothyronine (T3 ) Free [Mass/volume] in Serum or Plasma T3, free Lab Routine Hormone disorder Ordered: 07/20/2024 [facility] Comment on above: Ordered: 07/20/2024 Payers Date P[id number] 2022 Unknown [id number] 2019 Unknown [id number] 1975 Unknown [id number] 1975 Unknown [id number] 1975 Unknown [id number] 593 1975 Unknown [id number] 593 1975 Unknown [id number] 593 1975 Unknown [id number] 1259 1975 Unknown [id number] 1259 1975 Unknown [id number] [id number] Social History Date Type Detail Facility Start: 11-26-2022 End: 07-09-2024 Tobacco smoking status NJIS Smokes tobacco daily [facility] History of tobacco use [facility]igarette [facility]oker [facility] Start: 07-25-2023 End: 07-09-2024 Alcoholic beverage intake Current drinker of alcohol (finding) [facility] Start: 07-25-2023 End: 07-09-2024 [facility] of [facility] Start: 07-25-2023 End: 07-09-2024 Tobacco use panel [facility] Start: 11-26-2022 Alcohol Comment 2-4x a month i n the past year [facility] Start: 1975 Sex assigned at Not on file [facility] History of Present illness Narrative 07-20-2024 [...] HISTORY 2010 Uterine Ablation PELVIC LAPAROSCOPY TONSILLECTOMY 1991 WISDOM TOOTH EXTRACTION REVIEW OF SYSTEMS Review [...] nursing note reviewed. Exam conducted with a slubber frame changer present. Vitals: Estimated body mass index is [...] Tien Chacko DPM documented in this encounter [facility] Evaluation [...] and content) DATE CREATED AUTHOR 07/12/2022 [facility] DATE CREATED AUTHOR AUTHOR'S ORGANIZ ATION 05/08/2023 [facility] DATE CREATED AUTHOR AUTHOR'S ORGANIZ ATION 07/21/2024 [facility] EPIC Care Teams (unrecognized sec tion and content) Horse Race Starter Relationship Specialty Start Date End Date Case Moe MD [address] [facility] [address] [place] [address] PCP - General Internal Medicine 08/14/22 Horse Race Starter Relationship Specialty Start Date End Date Case Moe MD [address] [facility] [address] [place] [address] PCP - General Internal Medicine 08/14/22 Horse Race Starter Relationship Specialty Start Date End Date Case Moe MD [address] [facility] [address] [place] [id number] PCP - General Internal Medicine 08/14/22 Horse Race Starter Relationship Specialty Start Date End Date Case oMe MD [address] [place] [address] [place] [id number] PCP - General Internal Medicine 08/14/22 Horse Race Starter Relationship Specialty Start Date End Date Case Moe MD [address] [facility] [address] [place] [id number] PCP - General Internal Medicine 08/14/22 Reason [...] BE BASED ON THE PRIMARY CLINICAL RECORDS. [employer] [facility]. provides no warranty or guarantee of the accuracy or completeness of information in this document.
== END 2024-07-22 06:57 | disposition home or self-care (01) ==
LOC: US 06:56
PROVIDERS: Visit Provider Nurse Practitioner Family
DX: R13.10 Dysphagia, unspecified (principal); E04.1 Nontoxic single thyroid nodule
CPT/HCPCS: 76536

== ENCOUNTER 2024-07-24 08:01 | Outpatient (OUT) | payer BC, SELFPAY ==
--- OUTSIDE RECORDS SUMMARY | 2024-07-24 08:07 | XMS_ITS | CCD ---
Author Organization [facility] Care Team Providers Care After School Tutor Name Role Phone KAYLEE PEREZISTINA Admitting Unavailable HOY ., DR GUERRIER Primary Care Unavailable CHRIS, BREANNE Attending Unavailable CHRIS, BREANNE Consulting Unavailable HEMMER, DR DEBBIE Pradhan Consulting Unavailable HOY ., DR GUERRIER [...] Unavailable Case Moe MD Primary Care Provider FAY LEDESMA Attending Unavailable TIEN CHACKO Attending Unavailable CHRIS, BREANNE Attending Unavailable Allergies Allergy Classification Reported Allergen(s) Allergy Type Date of Onset Reaction(s) Facility (1 source) [facility] Drug Allergy 03-02-2014 [facility] Repository (11 sources) metroNIDAZ[facility]LE Drug Allergy 07-25-2023 Other [facility] Work Phone: Medications Current Medications Medication Drug Class(es) Dates Sig (Normalized) Sig (Original) terbinafine 250 mg oral tablet (2 sources) Allylamine Antifungal Start: 07-23-2024 End: 08-22-2024 take 1 tablet by mouth once daily terbinafine (LamISIL) 250 MG tablet Indications: Onychomycosis of Toenails Take 1 tablet (250 mg) by mouth Daily 30 tablet 07/23/2024 08/22/2024 Active 24 hr venlafaxine 37.5 mg extended release oral capsule (7 sources) Serotonin and Norepinephrine Reuptake Inhibitor Start: [...] and female climacteric states] 07-20-2024 Chronic Mycoses (4 sources) Onychomycosis; Translations: [Tinea unguium] 07-09-2024 Episodic Other connective tissue disease (4 sources) Pain of toe of right foot; Translations: [Pain in right toe(s)] 07-09-2024 Episodic Other connective tissue disease (4 sources) Pain of toe of left foot; Translations: [Pain in left toe(s)] 07-09-2024 Episodic Other endocrine disorders (2 sources) Disorder of endocrine system; Translations: [Endocrine disorder, unspecified] 07-20-2024 Episodic Other gastrointestinal disorders (2 sources) Dysphagia; Translations: [Dysphagia, unspecified] 07-20-2024 Episodic Other skin disorders (4 sources) Ingrowing nail; Translations: [Ingrowing nail] 07-09-2024 Episodic Skin and subcutaneous tissue infections (4 sources) Abscess of toe of right foot; [...] Test Name Value Interpretation Reference Range Facility US Thyroid [address] [place] [address] Ultrasound Report Signed Patient: KATHARINE ARRINGTON MR#: [id number] : 1975 Acct:[id number] Age/Sex: 49 / F ADM Date: 07/22/24 Loc: US Attending Dr: Breanne Perez Ordering Physician: Breanne Perez Date of Service: 07/22/24 Procedure(s): US thyroid Accession Number(s): [id number] cc: Breanne Perez; Physician,Non-Staff M.D. [place] [id number] Patient Name: KATHARINE ARRINGTON MRN: [facility]:[id number] date: 1975 Sex: F Assigned Patient Location: US Current Patient Location: US Accession/Order Number: [id number] Exam Date: 07/22/2024 08:03 Report Date: 07/22/2024 08:05 At the request of: BREANNE PEREZ Procedure: US thyroid THYROID ULTRASOUND CLINICAL DATA: Dysphagia COMPARISON: None The right thyroid lobe measures 4.9 x 1.5 x 1.2 cm. The left lobe measures 4.5 x 1.9 x 1.4 cm. The isthmus measures 2 - 3 mm . Following cysts are seen bilaterally measuring under 5 mm in size. No solid nodules are noted. US/US thyroid IMPRESSION: TINY COLLOID CYSTS. Impression dictated by: Debbie Nieto M.D.07/22/2024 8:05 AM Dictation Location: [place] [address] Electronically authenticated by: [id number] Y Date: 07/22/2024 08:05 Dictated By: Debbie Nieto M.D. Signed By: 07/22/24806 DD/ 4 TD/TT: Juice Standardizer: [facility] Radiology, Radiologist, MD - 07/22/2024 [place] [address] Ultrasound Report Signed Patient: KATHARINE ARRINGTON MR#: [id number] : 1975 Acct:[id number] Age/Sex: 49 / F ADM Date: 07/22/24 Loc: US Attending Dr: Breanne Perez Ordering Physician: Breanne Perez Date of Service: 07/22/24 Procedure(s): US thyroid Accession Number(s): [id number] cc: Breanne Perez; Physician,Non-Staff [place]vin [place] [id number] Patient Name: KATHARINE ARRINGTON MRN: [facility]:[id number] date: 1975 Sex: F Assigned Patient Location: US Current Patient Location: US Accession/Order Number: [id number] Exam Date: 07/22/2024 08:03 Report Date: 07/22/2024 08:05 At the request of: BREANNE PEREZ Procedure: US thyroid THYROID ULTRASOUND CLINICAL DATA: Dysphagia COMPARISON: None The right thyroid lobe measures 4.9 x 1.5 x 1.2 cm. The left lobe measures 4.5 x 1.9 x 1.4 cm. The isthmus measures 2 - 3 mm . Following cysts are seen bilaterally measuring under 5 mm in size. No solid nodules are noted. US/US thyroid IMPRESSION: TINY COLLOID CYSTS. Impression dictated by: Debbie Nieto M.D.07/22/2024 8:05 AM Dictation Location: [place] [address] Electronically authenticated by: [id number] Y Date: 07/22/2024 08:05 Dictated By: Debbie Nieto M.D. Signed By: 07/22/24806 DD/ 4 TD/TT: Juice Standardizer: [facility] Radiology Study observation (narrative) [facility] US Thyroid glandOrdered By: Radiologist Radiology on 07-22-2024 [facility]: ALL T3 FREEon 07-21-2024 Free T3 [Mass/Vol] 3.45 pg/mL 2.18 - 3. 98 pg/mL [facility] ALL THYROID STIM HORMONEon 0 07-21-2024 TSH Qn 1.573 m[IU]/L [facility] ALL THYROXINE (T4)on 025 T4 [Mass/Vol] 9.1 ug/dL 4.80 - 13.90 ug/dL [facility] No Panel Informationon 07-21 [facility] Xamarin e TBH GLUCOSE BLOODon 07-22-19 25 Glucose [Mass/Vol] 97 mg/dL 74 - 106 mg/dL NO [facility] Provider Letteron 05-07-2023 Provider Letter May 07, 2023 KATHARINE ARRINGTON [address] [place] [address] : 1975 Dear Ms. Arrington, We have [...] your prompt attention to this matter. Sincerely, [facility] [phone] Normal [facility] Physician Referralon 024 Physician Referral [phone] [id number] Normal [facility] INFLUENZA A AND B AGon 06-29 INFLUBNEGH SEE BELOW Normal [facility] Comment on above: Result Comment: Nega tive for Flu B protein antigen. Infection due to Flu B cannot be ruled out. Flu B antigen in the sample may be below the detection limit of the test. Performed By: #### I NFLUAB #### [facility] [address] [place] [address] Dr. Minoo Mcguire INFLUENZA A AG Positive Abnormal NEGATIVE SEE COMMENT [facility] Comment on above: Performed By: #### I NFLUAB #### [facility] [address] [place] [address] Dr. Minoo Mcguire INFLUENZA B AG Negative Normal NEGATIVE SEE COMMENT [facility] Comment on above: Performed By: #### I NFLUAB #### [facility] [address] [place] [address] Dr. Minoo Mcguire INFLUPOSH SEE BELOW Normal [facility] Comment on above: Result Comment: NOTE : Live attenuated influenzae vaccine viruses can cause a positive result for a rapid influenza diagnostic test if administered up to 7 days prior to rapid testing. Performed By: #### I NFLUAB #### [facility] [address] [place] [address] Dr. Minoo Mcguire SYMPTOMATIC COVID-19 ANTIGEN on 06-29-2022 EUA Statement SEE BELOW Normal [facility] Comment on above: Result Comment: This [...] sooner. Performed By: #### C VDAGS #### [facility] [address] [place] [address] Dr. Minoo Mcguire SARS-CoV-2 (COVID-19) RNA NARINDER+probe Ql (Unsp spec) Negative Normal NEGATIVE [facility] Comment on above: Performed By: #### C VDAGS #### [facility] [address] [place], [place] [address] Dr. Minoo Mcguire ASYMPTOMATIC COVID-19 ANTIGE Non 01-10-2022 EUA Statement SEE BELOW Normal [facility] Comment on above: Result Comment: This [...] sooner. Performed By: #### C VDAGA #### [facility] [address] [place], [place] [address] Dr. Minoo Mcguire SARS-CoV-2 (COVID-19) RNA NARINDER+probe Ql (Unsp spec) Negative Normal NEGATIVE [facility] Comment on above: Result Comment: Nega tive results are presumptive. They do not preclude infection and should not be used as the sole basis for treatment decisions. Additional confirmatory testing by a molecular method should be considered. Performed By: #### C VDAGA #### [facility] [address] [place] [address] [address] [address] Minoo Mcguire [facility]on SARS-CoV-2 (COVID-19) RNA NARINDER+probe Ql (Unsp spec) Detected Critically abnormal NOT DETECTED [facility] Comment on above: Result Comment: This test is not yet approved or cleared by the [place] FDA. When there are no FDA-approved or cleared tests available, and other criteria are met, FDA can make tests available under an emergency access mechanism called an Emergency Use Authorization (EUA). The EUA for this test is supported by the [place] of Health and Human Service's declaration that [...] used). Performed By: #### C VDTB #### [facility] [address] [place] [address] Dr. Minoo Mcguire SYMPTOMATIC COVID-19 ANTIGEN on 01-08-2022 EUA Statement SEE BELOW Normal [facility] Comment on above: Result Comment: This [...] sooner. Performed By: #### C VDAGS #### [facility] [address] [place] [address] Dr. Minoo Mcguire SARS-CoV-2 (COVID-19) RNA NARINDER+probe Ql (Unsp spec) Positive Critically abnormal NEGATIVE [facility] Comment on above: Performed By: #### C VDAGS #### [facility] [address] [place], [place] [id number] Dr. Minoo Mcguire SYMPTOMATIC COVID-19 ANTIGEN on 01-01-2022 EUA Statement SEE BELOW Normal [facility] Comment on above: Result Comment: This [...] sooner. Performed By: #### C VDAGS #### [facility] [address] [place] [address] Dr. Minoo Mcguire SARS-CoV-2 (COVID-19) RNA NARINDER+probe Ql (Unsp spec) Positive Critically abnormal NEGATIVE [facility] Comment on above: Performed By: #### C VDAGS #### [facility] [address] [place] [address] [address] Minoo Mcguire Vital Signs Date Time Vital Sign Value Performing Clinician Faci lity 07-23-2024 09:41-0400 Body height 162.6 cm Tien Chacko DPM Work Phone: [facility] 07-23-2024 09:41-0400 Body mass index (BMI) [Ratio] 35.02 kg/m2 Tien Chacko DPM Work Phone: [facility] 07-23-2024 09:41-0400 Body weight 92.53 kg Tien Chacko DPM Work Phone: [facility] 07-23-2024 09:41-0400 Respiratory rate 18 /min Tien Chacko DPM Work Phone: [facility] 07-20-2024 13:17-0400 Body mass index (BMI) [Ratio] 35.02 kg/m2 Breanne Perez NP Work Phone: [facility] 07-20-2024 13:17-0400 Body weight 92.53 kg Breanne Perez NP Work Phone: [facility] 07-20-2024 13:17-0400 Diastolic blood pressure 84 mm[Hg] Breanne Perez NP Work Phone: [facility] 07-20-2024 13:17-0400 Systolic blood pressure 128 mm[Hg] Breanne Perez [employer] Work Phone: [facility] 07-09-2024 14:03-0400 Body height 162.6 cm Tien Chacko DPM Work Phone: [facility] 07-09-2024 14:03-0400 Body mass index (BMI) [Ratio] 34.33 kg/m2 Tien Chacko DPM Work Phone: [facility] 07-09-2024 14:03-0400 Body weight 90.72 kg Tien Chacko DPM Work Phone: [facility] 07-09-2024 14:03-0400 Respiratory rate 18 /min Tien Chacko DPM Work Phone: [facility] Healthcare Encounters Encounter Date Encounter Type Care Provider Facility Start: 07-23-2024 End: 07-23-2024 Bamboo flowsheet Tien Chacko DPM Work Phone: [facility] Start: 07-23-2024 End: 07-23-2024 Bamboo flowsheet Tien Chacko DPM Work Phone: [facility] Start: 07-23-2024 End: 07-23-2024 Office outpatient visit 15 minutes Tien Chacko DPM Work Phone: [facility] Comment on above: Onychocryptosis (Lilian brandon Dx); Toe pain, right; Abscess of toe, right; Onychomycosis; Toe pain, left Start: 07-22-2024 End: 07-22-2024 [facility] Result Encounter Breanne Perez NP Work Phone: [facility] External Department Unsolicited Start: 07-22-2024 End: 07-22-2024 [facility] Result Encounter Breanne Perez NP Work Phone: [facility] Unsolicited Start: 07-21-2024 End: 07-21-2024 [facility] Result Encounter Breanne Perez [employer] Work Phone: [facility] Unsolicited Start: 07-21-2024 End: 07-21-2024 [facility] Result Encounter Breanne Perez [employer] Work Phone: [facility] Unsolicited Start: 07-20-2024 End: 07-20-2024 Bamboo flowsheet Breanne Hualy [employer] Work Phone: [facility] Start: 07-20-2024 End: 07-20-2024 Bamboo flowsheet Breanne Chris [employer] Work Phone: [facility] Start: 07-20-2024 End: 07-20-2024 Office outpatient visit 15 minutes Breanne Perez [employer] Work Phone: [facility] Comment on above: Hormone disorder [...] [facility] Start: 07-09-2024 End: 07-09-2024 Bamboo [...] Date Procedure Procedure Detail Performing Clinician Start: 07-22-2024 soft tissue head & neck real time imge docm Breanne Perez [employer] Work Phone: Start: 07-21-2024 ALL T3 FREE Breanne del real [employer] Work Phone: Start: 07-21-2024 ALL THYROID STIM HORMONE Breanne Perez [employer] Work Phone: Start: 07-21-2024 ALL THYROXINE (T4) Andrey Perez [employer] Work Phone: Start: 07-21-2024 [facility] GLUCOSE BLOOD Krist denice Perez [employer] Work Phone: Start: 06-29-2021 Mammography Tien nieevs DPM Work Phone: Plan of Treatment Date Care Activity Detail Author Start: 08-12-2024 End: 08-12-2024 Patient encounter procedure 08/12/2024 3:00 PM EDT Office Visit [facility] [address] [facility] [place] [address] Fay Ledesma PA [address] [place] [address] [facility] Start: 07-23-2024 End: 08-22-2024 Alanine aminotransferase [Enzymatic activity/volume] in Serum or Plasma ALANINE AMINOTRANSFERASE Lab Routine Onychomycosis Expected: 07/23/2024 (Approximate), Expires: 08/22/2024 [facility] Comment on above: Expected: 07/23/2024 (Approximate), Expi res: 08/22/2024 Start: 07-23-2024 End: 08-22-2024 Aspartate aminotransferase [Enzymatic activity/volume] in Serum or Plasma ASPARTATE AMINO TRANSFERASE Lab Routine Onychomycosis Expected: 07/23/2024 (Approximate), Expires: 08/22/2024 [facility] Healthcare Work Phone: Comment on above: Expected: 07/23/2024 (Approximate), Expi res: 08/22/2024 Start: 07-23-2024 End: 07-23-2024 Patient encounter procedure [facility] Comment on above: Onychocryptosis (Primary Dx); Toe pain, right; Abscess of toe, right; Onychomycosis; Toe pain, left Start: 07-20-2024 End: 07-20-2025 C-peptide C-peptide Lab Routine Hormone disorder Expected: 07/20/2024 (Approximate), Expires: 07/20/2025 [facility] Comment on above: Expected: 07/20/2024 (Approximate), Expi res: 07/20/2025 Start: 07-20-2024 End: 07-20-2025 Cortisol free Cortisol, free Lab Routine Hormone disorder Expected: 07/20/2024 (Approximate), Expires: 07/20/2025 [facility] Comment on above: Expected: 07/20/2024 (Approximate), Expi res: 07/20/2025 Start: 07-20-2024 End: 07-20-2025 Glucose [Mass/volume] in Serum or Plasma Glucose, random Lab Routine Hormone disorder Expected: 07/20/2024 (Approximate), Expires: 07/20/2025 [facility] Healthcare Comment on above: Expected: 07/20/2024 (Approximate), Expi res: 07/20/2025 Start: 07-20-2024 End: 07-20-2025 Insulin, total Insulin, total Lab Routine Hormone disorder Expected: 07/20/2024 (Approximate), Expires: 07/20/2025 [facility] Healthcare Comment on above: Expected: 07/20/2024 (Approximate), Expi res: 07/20/2025 Start: 07-20-2024 End: 07-20-2025 Serotonin serum Serotonin serum Lab Routine Hormone disorder Expected: 07/20/2024 (Approximate), Expires: 07/20/2025 [facility] Comment on above: Expected: 07/20/2024 (Approximate), Expi res: 07/20/2025 Start: 07-20-2024 End: 07-20-2025 Thyroglobulin Thyroglobulin Lab Routine Hormone disorder Expected: 07/20/2024 (Approximate), Expires: 07/20/2025 [facility] Comment on above: Expected: 07/20/2024 (Approximate), Expi res: 07/20/2025 Start: 07-20-2024 End: 07-20-2025 Thyroglobulin Antibody Thyroglobulin Antibody Lab Routine Hormone disorder Expected: 07/20/2024 (Approximate), Expires: 07/20/2025 [facility] Comment on above: Expected: 07/20/2024 (Approximate), Expi res: 07/20/2025 Start: 07-20-2024 End: 07-20-2025 Thyrotropin [Units/volume] in Serum or Plasma [facility] Comment on above: Ordered: 07/20/2024 Expected: 07/20/2024 (Approximate), Expires: 07/20/2025 Start: 07-20-2024 End: 07-20-2025 US Thyroid gland US thyroid Imaging Routine Dysphagia, unspecified type Expected: 07/20/2024, Expires: 07/20/2025 [facility] Comment on above: Expected: 07/20/2024, Expires: Start: 07-20-2024 End: 07-20-2024 Patient encounter procedure [facility] Comment on above: Arrived Start: 07-09-2024 End: 07-09-2024 Patient encounter procedure 07/09/2024 2:10 PM EDT Office Visit [facility] [address] [facility] [address] [place] [address] Tien Chacko DPM [address] [facility] [address] [place] [address] Arrived [facility] Comment on above: Arrived Start: 06-29-2022 Screening for malignant neoplasm of breast Mammogram [facility] Start: 1975 Screening for malignant neoplasm of colon [facility] DHEA-sulfate DHEA-sulfate Lab Routine Hormone disorder Ordered: 07/20/2024 [facility] Comment on above: Ordered: 07/20/2024 Estradiol Estradiol Lab Ro utine Hormone disorder Ordered: 07/20/2024 [facility] Work Phone: Comment on above: Ordered: 07/20/2024 Estrone Estrone Lab Rout ine Hormone disorder Ordered: 07/20/2024 [facility] Comment on above: Ordered: 07/20/2024 Ferritin [Mass/volum e] in Serum or Plasma Ferritin Lab Routine Hormone disorder Ordered: 07/20/2024 [facility] Comment on above: Ordered: 07/20/2024 Progesterone Progesterone Lab Routine Hormone disorder Ordered: 07/20/2024 [facility] Comment on above: Ordered: 07/20/2024 Sex hormone binding globulin Sex hormone binding globulin Lab Routine Hormone disorder Ordered: 07/20/2024 [facility] Comment on above: Ordered: 07/20/2024 T3, reverse T3, reverse Lab Routine Hormone disorder Ordered: 07/20/2024 [facility] Comment on above: Ordered: 07/20/2024 TESTOSTERONE, FREE TESTOSTERONE, FREE Lab Routine Hormone disorder Ordered: 07/20/2024 [facility] Comment on above: Ordered: 07/20/2024 Testosterone, free, total Testos terone, free, total Lab Routine Hormone disorder Ordered: 07/20/2024 [facility] Comment on above: Ordered: 07/20/2024 Thyroid peroxidase antibody Thyroid peroxidase antibody Lab Routine Hormone disorder Ordered: 07/20/2024 [facility] Comment on above: Ordered: 07/20/2024 Thyroxine (T4) free [Mass/volume] in Serum or Plasma T4, free Lab Routine Hormone disorder Ordered: 07/20/2024 [facility] Comment on above: Ordered: 07/20/2024 Triiodothyronine (T3 ) Free [Mass/volume] in Serum or Plasma T3, free Lab Routine Hormone disorder Ordered: 07/20/2024 [facility] Comment on above: Ordered: 07/20/2024 Payers Date Payer Category Payer [facility] [employer] [id number] 2022 Unknown [id number] 2019 Unknown [id number] 1975 Unknown [id number] 593 1975 Unknown [id number]. 593 1975 Unknown [id number]. 593 1975 Unknown [id number]. 593 1975 Unknown [id number] [id number]. 593 1975 Unknown [id number]. 1259 1975 Unknown [id number]. 1259 1975 Unknown [id number]. 1259 Social History Date Type Detail Facility Start: 11-26-2022 End: 07-09-2024 Tobacco smoking status KYIS Smokes tobacco daily [facility] History of tobacco use Cigarette Smoker [facility] Start: 07-25-2023 End: 07-23-2024 Alcoholic beverage intake Current drinker of alcohol (finding) [facility] Start: 07-25-2023 End: 07-09-2024 History of Social function [facility] Start: 07-25-2023 End: 07-09-2024 Tobacco use panel [facility] Start: 11-26-2022 Alcohol Comment 2-4x a month i n the past year [facility] Start: 1975 Sex assigned at Not on file [facility] History of Present illness Narrative 07-23-2024 Tien Chacko, GRETTA - 07/23/2024 9:40 AM EDT Note Date & Type Note Facility 07-23-2024 History of Presen t illness Narrative Patient: Katharine Arrington : 1975 PCP: Case Moe MD SUBJECTIVE This is a 49 y.o. female that presents today 14 d s/p incision and drainage of abcess with nail avulsion to the right medial hallux Pt states that they have been following all post op instructions and have been taking antibiotic as prescribed. Pt denies n/f/v/c and has negative pain at post op site. Pt presents today for postoperative follow up. Patient also follows up for suspected onychomycosis to toenails and has tried conservative treatments with negative improvement . Allergies: Allergies Allergen Reactions Flagyl [Metronidazole] Other neuro Past Medical History: Past Medical History: Diagnosis Date Diverticulitis of colon without hemorrhage Insomnia Leucocytosis Lumbar radiculopathy, right Medications: Current Outpatient Medications: azithromycin (Zithromax Z-Hadley) 250 MG tablet, Take 1 tablet (250 mg) by mouth Daily for 5 days Use as directed, Disp: 6 tablet, Rfl: 0 ROS: General: denies fever, chills, fatigue, malaise GI: denies loose or watery stool on antibiotic OBJECTIVE LE EXAM: DERM: Negative erythema, negative drainage from the right medial hallux. Left and right great toe have elongated thick yellow crumbly nail VASC: Palpable pedal pulses bilaterally NEURO: Gross sensation intact to bilateral feet ORTHO: Minimal pain on palpation to the right medial hallux. Minimal pain onpalpation to the left hallux and right hallux nails Labs: ASSESSMENT 14 d s/p I&D of abscess to the right medial hallux 1. Onychocryptosis 2. Toe pain, right 3. Abscess of toe, right 4. Onychomycosis 5. Toe pain, left PLAN Pt to d/c abx. Patient to continue with OTC oral anti - inflammatories as needed for pain. Pt to keep DSD on area of interest while in shoegear, otherwise may expose to air in a clean environment. Patient education today with discussing diagnosis and treatment options for patient including risks and benefits of lamisil medication including liver interactions, side effects, and possible non resolution of nail fungus. Rx for lamisil x 30 d Rx for lfts today Pt to contact podiatry if any problems RTC one month Tien Chacko DPM documented in this encounter [facility] History of Present illness Narrative 07-20-2024 [...] nursing note reviewed. Exam conducted with a veterans adviser present. Vitals: Estimated body mass index is [...] Tien Chacko DPM documented in this encounter [facility] Evaluation note Note Date & Type [...] DATE CREATED AUTHOR 07/12/2022 [facility] DATE CREATED AUTHOR AUTHOR'S ORGANIZ ATION 05/08/2023 [facility] DATE CREATED AUTHOR AUTHOR'S ORGANIZ ATION 07/21/2024 [facility] d[facility] Special[facility] Care Teams (unrecognized sec tion and content) After School Tutor Relationship Specialty Start Date End Date Case Moe MD [address] [place] [address] PCP - General Internal Medicine 08/14/22 After School Tutor Relationship Specialty Start Date End Date Case Moe MD [address] [place] [address] PCP - General Internal Medicine 08/14/22 After School Tutor Relationship Specialty Start Date End Date Case Moe MD [address] [place] [address] PCP - General Internal Medicine 08/14/22 After School Tutor Relationship Specialty Start Date End Date Case Moe MD [address] [place] [address] PCP - General Internal Medicine 08/14/22 After School Tutor Relationship Specialty Start Date End Date Case Moe MD [address] [place] [address] PCP - General Internal Medicine 08/14/22 After School Tutor Relationship Specialty Start Date End Date Case Moe MD [address] [facility] [address] [place] [address] PCP - General Internal Medicine 08/14/22 After School Tutor Relationship Specialty Start Date End Date Case Moe MD [address] [facility] [address] [place] [address] PCP - General Internal Medicine 08/14/22 Reason for Visit (unrecogniz ed section and content) Reason Comments Ingrown Toenail Bl gt ingrown Reason Comments Menopause Reason Comments Follow-up 14d s/p avulsion/ la misil FOR RECORDS PERTAINING TO PATIENTS WHO ARE [...] BE BASED ON THE PRIMARY CLINICAL RECORDS. [facility]. provides no warranty or guarantee of the accuracy or completeness of information in this document.
[2024-07-24 08:47] LABS: Alanine Aminotransferase 27 U/L (14-59); Aspartate Amino Transferase 17 U/L (15-37)
== END 2024-07-24 08:02 | disposition home or self-care (01) ==
DX: B35.1 Tinea unguium (principal)
CPT/HCPCS: 36415; 84450; 84460

== ENCOUNTER 2024-08-12 14:45 | Outpatient (REF) | payer BC, SELFPAY | END 2024-08-12 14:46 | disposition home or self-care (01) | LOC: LAB 14:45 | PROVIDERS: Visit Provider Obstetrics & Gynecology | DX: N90.7 Vulvar cyst (principal) ==

== ENCOUNTER 2024-08-12 19:51 | Outpatient (REF) | payer BC, SELFPAY ==
[2024-08-18 08:08] LABS: Age Gdln ACOG Testing Note (.); HPV Aptima Negative (Negative); IGP, Aptima HPV, rfx 16/18,45 Note (.)
== END 2024-08-12 19:52 | disposition home or self-care (01) ==
LOC: LAB 19:51
PROVIDERS: Visit Provider Physician Assistant
DX: Z01.419 Encounter for gynecological examination (general) (routine) without abnormal findings (principal)
CPT/HCPCS: 87624; 88175

== ENCOUNTER 2024-09-07 08:27 | Outpatient (OUT) | payer BC, SELFPAY ==
--- OUTSIDE RECORDS SUMMARY | 2023-11-04 06:10 | XMS_ITS ---
Author Organization [facility] Address [address] [place] [address] Care Team Providers Care Wafer Polisher Name Role Phone Drake Contreras Unavailable [phone] Allergies No Known Allergies REASON FOR VISIT LEFT KNEE CHONDROMALACIA Medications Medication SIG (Take, Route, Frequency, Duration) Notes Start Date End Date Status Mobic 15 mg 1 tab(s) orally once a day for 45 days 10/07/2023 Active Social History Tobacco Use: Social History Observation Description Date Details (start date - stop date) Current Smoker NA - NA Smoking History Question Answer Notes Smoking Status Current Smoker How much do you smoke 6 - 10 How soon after you wake up do you smoke your fir st cigarette? 6 - 30 min AUDIT-C (Standard) Question Answer Notes Did you have a drink contain ing alcohol in the past year? Yes How often did you have six o r more drinks on one occasion in the past year? Never (0 point) How many drinks did you have on a typical day when you were drinking in the past year? 1 or 2 drinks (0 point) How often did you have a dri nk containing alcohol in the past year? 2 to 4 times a month (2 points) Vital Signs Height 5'4 in 11/04/2023 Weight 180 lbs 11/04/2023 BMI 30.89 11/04/2023 Encounters Encounter Location Date Provider Diagnosis [facility] [address] [place] [address] [address] [place] [address] 11/04/2023 Drake Contreras Chondromalacia, left knee M94.262 Assessments Encounter Date Diagnosis (ICD Code) Assessment Notes Treatment Notes Treatment Clinical Notes Section Notes 11/04/2023 Chondromalacia , left knee (ICD-10 - M94.262) 11/04/2023 Other Patient is doing well on the meloxicam. She will discontinue the use once she has made it through the 6 weeks. If pain returns she will get it refilled. We have discussed this as a potential long-term treatment option and the need for following kidney function. She will follow-up on an as-needed basis. Import medication Plan Of Treatment Treatment Notes Assessment Notes Other Patient is doing well on the meloxicam. She will discontinue the use once she has made it through the 6 weeks. If pain returns she will get it refilled. We have discussed this as a potential long-term treatment option and the need for following kidney function. She will follow-up on an as-needed basis. Import medication Next Appt Details Follow Up: prn, Reason: Progress Notes * JOSIAH HANSEN RDOB: [birth year] (48 yo F)Acc No.[id number]:11/04/2023 Patient: JOSIAH LOCO Provider: Verenice Contreras MD :1975 A ge:48 Y S ex:Female Date:11/04/2023 Address:[address] [place] [address] ELIAS BUCIO, [id number] Subjective: * Chief Complaints: * L EFT KNEE CHONDROMALACIA * HPI: G eneral Follow Up Information: Patient presents today for follow-up of her left knee patellofemoral chondromalacia and doing well. She reports complete relief from her symptoms while on the meloxicam. * Medical History: * Surgical History: N o Surgical History documented. * Family History: G randparents: Arthritis,Cancer,Stroke,Heart Trouble,Heart Disease. M other: Heart Trouble,Heart Disease,Hypertension. F ather: Heart Trouble,Heart Disease,Hypertension. * Social History: S moking History S moking Status C urrent Smoker, H ow long have you smoked? > 5 years, H ow much do you smoke 6 - 10, H ow soon after you wake up do you smoke your first cigarette? 6 - 30 min. C onsume alcohol D o you drink alcohol? N o. E xercise regularly D o you exercise? N o. D o you live W ith whom do you live? S pouse and other(s). W hat is your place of residence? W here do you live? 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 A CAMRYN-C (Standard) D id you have a drink containing alcohol in the past year? Y es, H ow often did you have six or more drinks on one occasion in the past year? N ever (0 point), H ow many drinks did you have on a typical day when you were drinking in the past year? 1 or 2 drinks (0 point),?How often did you have a drink containing alcohol in the past year? 2 to 4 times a month (2 points). * Medications: T akingMobic 15 mg tablet 1 tab(s) orally once a day Medication List reviewed and reconciled with the patientTaking Mobic 15 mg tablet 1 tab(s) orally once a day Medication List reviewed and reconciled with the patient * Allergies: N .K.D.A.no[Allergies Verified] Objective: * Vitals: H t: 5'4 , Wt: 180 lbs, BMI:30.89. * Examination: G eneral examination: L eft knee today has no effusion. Full painless range of motion. Normal gait. X -ray Imaging Studies: M RI Imaging Studies: Assessment: * Assessment: 1. C hondromalacia, left knee - M94.262 (Primary) Plan: * Treatment: * Procedure Codes: * Follow Up: p rn Forms: * Images: * Sign off status: Completed true * Provider: Verenice Contreras MD Date: 0 11/04/2023 Generated for Valerie garcia/Melva/Nataliaitting on: 0 09/07/2024 08:29 AM EDT History and Physical Notes * HPI (History of Present Illness) Category Sub-Category Detail Notes Category Not es General Follow Up Information Patient presents tod ay for follow-up of her left knee patellofemoral chondromalacia and doing well. She reports complete relief from her symptoms while on the meloxicam. Examination Category Sub-Category Detail Notes Category Not es General examination Left kne e today has no effusion. Full painless range of motion. Normal gait. X-ray Imaging Studies MRI Imaging Studies
--- OUTSIDE RECORDS SUMMARY | 2024-09-02 14:30 | XMS_ITS | Encounter Summary ---
Author Organization [facility] tem Address [id number] [address] [place] [address] Care Team Providers Care Pig Lead Melter Helper Name Role Phone Te Carlos MD Primary Care Provider [phone] Reason for Referral * Medication Prior Authorization - Denied Specialty Diagnoses / Procedures Referred By Jordon garcia Referred To Contact Diagnoses Encounter for screening colonoscopy Chantal Ovalle APRN-CNP [address] [place] [address] Phone: tel: fax: Referral ID Status Reason Start Date Expiration Date Visits Re quested Visits Authorized [id number] Denied 1 1 Reason for Visit * Reason Comments Difficulty Swallowing TROUBLE SWALLOWING , REFERRED BY DR RODNEY COLONOSCOPY Encounter Details Date Type Department Care Team (Late Contact Info) Description 09/02/2024 2:30 PM EDT Office Visit [facility] General Surgery [address] [place] [phone] Chantal Ovalle APRN-CNP [address] [place] [address] Dysphagia, unspecified type (Primary Dx); Encounter for screening colonoscopy Social History Tobacco Use Types Packs/Day Years Used Date Smoking Tobacco: Every Day Cigarettes Smokeless Tobacco: Never Tobacco Cessation:Ready to Q uit: Not Asked; Counseling Given: Not Answered Alcohol Use Standard Drinks/Week Comments Never 0 (1 standard drink = 0.6 oz pur e alcohol) Childcare Answer Date Recorded Childcare Unknown 09/17/2018 Employment Answer Date Recorded Employment Unknown 09/17/2018 Purpose - Life Answer Date Recorded Purpose and direction in life Unknown Comments Unknown Sex and Gender Information Value Date Recorded Sex Assigned at Not on file Legal Sex Female 11:32 AM EDT Gender Identity Not on file Sexual Orientation Not on file documented as of this encounter Last Filed Vital Signs Vital Sign Reading Time Taken Comments Blood Pressure 155/95 09/02/2024 2:21 PM EDT Pulse - - Temperature - - Respiratory Rate - - Oxygen Saturation - - Inhaled Oxygen Concentration - - Weight 92.1 kg (203 lb) 09/02/2024 2:21 PM EDT Height 162.6 cm (5' 4 ) 09/02/2024 2:21 PM EDT Body Mass Index 34.84 09/02/2024 2:21 PM EDT documented in this encounter Progress Notes * Chantal Ovalle, MANOLO-PASTEURIZING SUPERVISOR - 09/02/2024 2:30 PM EDT Images from the original note were not included. Chief Complaint: Dysphagia History of Present Illness Katharine Arrington is a 49 y.o. female who presents to the office for intermittent dysphagia. Symptoms occur a few times weekly. She feels like food gets caught in the back of her throat. Sometimes shecan get it down with water and sometimes she can not. Usually occurs with foods such as bread and rice. She denies nausea, vomiting and heartburn. She is a smoker. She admits to drinking an increasedamount of caffeine. Also would like to schedule colonoscopy. She has never had 1. She denies any abdominal pain, constipation, diarrhea or rectal bleeding. Review of Systems Constitutional: Negative for fever and unexpected weight change. HENT: Positive for trouble swallowing. Respiratory: Negative for shortness of breath. Cardiovascular: Negative for chest pain. Gastrointestinal: Negative for nausea, vomiting, abdominal pain, diarrhea, constipation and blood in stool. Genitourinary: Negative for dysuria and difficulty urinating. Musculoskeletal: Negative for gait problem. Skin: Negative for rash and wound. Neurological: Negative for dizziness, weakness and light-headedness. Hematological: Does not bruise/bleed easily. Psychiatric/Behavioral: Negative for confusion. History reviewed. No pertinent past medical history. 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 Please see instructional sheet given by physicians office., Disp: 1 each, Rfl: 0 tiZANidine (ZANAFLEX) 4 mg tablet, Take 1 tablet (4 mg total) by mouth 3 (three) times a day., Disp: , Rfl: Social History Socioeconomic History Marital status: Spouse name: Not on file Number of children: Not on file Years of education: Not on file Highest education level: Not on file Occupational History Not on file Tobacco Use Smoking status: Every Day Types: Cigarettes Smokeless tobacco: Never Vaping Use Vaping status: Never Used Substance and Sexual Activity Alcohol use: Never Drug use: Never Sexual activity: Defer Other Topics Concern Not on file Social History Narrative Not on file Social Drivers of Health Financial Resource Strain: Not on file Food Insecurity: Not on file Transportation Needs: Not on file Physical Activity: Not on file Stress: Not on file Social Connections: Not on file Interpersonal Safety: Not on file Housing Instability: Not on file Family History Problem Relation Age of Onset Lung cancer Maternal Uncle Lung cancer Maternal cousin Breast cancer Cousin Objective Physical Exam Constitutional: General: She is not in acute distress. Appearance: Normal appearance. She is not ill-appearing. HENT: Head: Normocephalic and atraumatic. Mouth/Throat: Mouth: Mucous membranes are moist. Eyes: Pupils: Pupils are equal, round, and reactive to light. Cardiovascular: Rate and Rhythm: Normal rate. Pulmonary: Effort: Pulmonary effort is normal. No respiratory distress. Abdominal: General: There is no distension. Musculoskeletal: General: Normal range of motion. Skin: General: Skin is warm and dry. Neurological: Mental Status: She is alert and oriented to person, place, and time. Mental status is at baseline. Vital Signs: Blood pressure (!) 155/95, height 162.6 cm (5' 4 ), weight 92.1 kg (203 lb). Respiratory Source: No data recorded Admission Weight: Weight: 92.1 kg (203 lb) Labs No results found for: WBC , HGB , HCT , MCV , PLT No results found for: GLU , CALCIUM , NA , K , CO2 , CL , BUN , CREATININE No results found for: AMYLASE No results found for: LIPASE No results found for: ALT , AST , GGT , ALKPHOS , LABBILI No results found for: INR , PROTIME Assessment Dysphagia Screening colonoscopy Plan Trial PPI. Schedule EGD and colonoscopy, but she is going to check with her insurance company first because she is an employee of the [employer]. Evaluation included: Preparing to see the patient (e.g., review of tests) Obtaining and/or reviewing separately obtained history Performing a medically appropriate examination and/or evaluation Counseling and educating the patient/family/caregiver Referring and communicating with other health dialysis patient care technician Dysphagia, unspecified type [R13.10] [facility]ALES [facility] [place] This note was created with the assistance of a speech recognition program. While intending to generate a timely document that accurately reflects the content of the visit, no guarantee can be provided that every grammatical or spelling mistake has been or will be identified or corrected. Thank you for your understanding. RYAN Rosales 09/02/24 8398 documented in this encounter Plan of Treatment Scheduled Orders Name Type Priority Associated Diagnoses Orde r Schedule EGD GI Routine Dysphagia, unspecified type 1 Occurrences starting 09/02/2024 until 09/02/2025 Colonoscopy GI Routine Encounter for screening colonoscopy 1 Occurrences starting 09/02/2024 until 09/02/2025 documented as of this encounter Visit Diagnoses Diagnosis Dysphagia, unspecified type- Primary Encounter for screening colonoscopy documented in this encounter Care Teams Pig Lead Melter Helper Relationship Specialty Start Date End Date Te Carlos MD [address] [place] [address] PCP - General Family Medicine 08/17/24 documented as of this encounter
--- OUTSIDE RECORDS SUMMARY | 2024-09-07 08:29 | XMS_ITS | Encounter Summary ---
Author Organization [facility] Address [address] [place] [address] Care Team Providers Care Pediatric Anesthesiologist Name Role Phone Case Moe MD Primary Care Provider [phone] Encounter Details Date Type Department Care Team (Late Contact Info) Description 08/07/2023 Clinisync Result Encounter [facility] External Department Unsolicited Fay Sahni PA [address] [place], [facility]11 Social History Tobacco Use Types Packs/Day Years Used Date Smoking Tobacco: Every Day Cigarettes Alcohol Use Standard Drinks/Week Comments Yes 0 (1 standard drink = 0.6 oz pur e alcohol) 2-4x a month in the past year Comments No Sex and Gender Information Value Date Recorded Sex Assigned at Not on file Legal Sex Female 6:41 PM EDT Gender Identity Not on file Sexual Orientation Not on file documented as of this encounter Plan of Treatment Upcoming Encounters Date Type Department Care Team (Late Contact Info) Description 09/10/2024 8:00 AM EDT Office Visit [facility] [address] [facility] [phone] Kishan Guardado DO [address] Dinesh Serrano, [facility]11 documented as of this encounter Procedures Procedure Name Priority Date/Time Associated Diagnosis Comments US BREAST LT LIMITED 08/07/2023 11:23 AM EDT documented in this encounter Results * US BREAST LT LIMITED (08/07/2023 11:23 AM EDT) Anatomical Region Laterality Modality Other 08/07/2023 11:2 3 AM EDT Narrative 08/07/2023 11:25 AM EDT The [address] [address] Ultrasound Report Signed Patient: Katharine Hansen MR#: [id number] : 1975 Acct:[id number] Age/Sex: 48 / F ADM Date: 08/05/23 Loc: US Attending Dr: Fay Sahni Ordering Physician: Fay Sahni Date of Service: 08/05/23 Procedure(s): US breast LT limited Accession Number(s): [id number] cc: Fay Sahni; Physician,Non-Staff M.DMargaret Patient Name: KATHARINE HANSEN MR#: [id number] : 1975 Exam Date: 08/05/2023 Ordering Doctor: YONI Sahni . RADIOLOGY REPORT PROCEDURE: US BREAST LT LIMITED COMPARISON: MM TOMOSYNTHESIS SCREENING BI, 04/25/2023. MM TOMOSYNTHESIS DIAGNOSTIC LT, 08/05/2023. INDICATIONS: Left Breast Pain N64.4 TECHNIQUE: Breast ultrasound was performed, with evaluation focusing only on specific areas of concern. FINDINGS: DIAGNOSTIC CATEGORY 2--BENIGN FINDING: Ultrasound demonstrates multiple dilated ducts extending from the nipple . No intraductal nodule mass or filling defect is observed. No mammographic or ultrasound abnormality to correspond to the patient's breast pain. Further evaluation should be based on clinical and physical exam RECOMMENDATIONS: ROUTINE MAMMOGRAM AND CLINICAL EVALUATION IN 12 MONTHS. PLEASE NOTE: A NORMAL ULTRASOUND EXAMINATION DOES NOT EXCLUDE THE POSSIBILITY OF BREAST CANCER. A CLINICALLY SUSPICIOUS PALPABLE LUMP SHOULD BE BIOPSIED. Dictated by: Orville Hoffmann MD on 08/07/2023 at 11:19 Approved by: Orville Hoffmann MD on 08/07/2023 at 11:23 Dictated By: Orville Hoffmann M.D. Signed By: 08/07/23 1125 DD/ 1123 TD/TT: Table Worker Packager: Procedure Note Radiology, Radiologist, - 08/07/[address] [address] Ultrasound Report Signed Patient: Katharine Hansen RMR#: [id number] : 1975Acct:[id number] Age/Sex: 48 / FADM Date: 08/05/23 Loc: US Attending Dr: Fay Sahni Ordering Physician: Fay Sahni Date of Service: 08/05/23 Procedure(s): US breast LT limited Accession Number(s): [id number] cc: Fay Sahni; Physician,Non-Staff M.DMargaret Patient Name: KATHARINE HANSEN MR#: [id number] : 1975 Exam Date: 08/05/2023 Ordering Doctor: YONI Sahni . RADIOLOGY REPORT PROCEDURE: US BREAST LT LIMITED COMPARISON: MM TOMOSYNTHESIS SCREENING BI, 04/25/2023. MMTOMOSYNTHESIS DIAGNOSTIC LT, 08/05/2023. INDICATIONS: Left Breast Pain N64.4 TECHNIQUE: Breast ultrasound was performed, with evaluation focusingonly on specific areas of concern. FINDINGS: DIAGNOSTIC CATEGORY 2--BENIGN FINDING: Ultrasound demonstrates multiple dilated ducts extending from thenipple . No intraductal nodule mass or filling defect is observed. No mammographic or ultrasound abnormality to correspond to thepatient's breast pain. Further evaluation should be based on clinical and physicalexam RECOMMENDATIONS: ROUTINE MAMMOGRAM AND CLINICAL EVALUATION IN 12 MONTHS. PLEASE NOTE: A NORMAL ULTRASOUND EXAMINATION DOES NOT EXCLUDE THEPOSSIBILITY OF BREAST CANCER. A CLINICALLY SUSPICIOUS PALPABLE LUMP SHOULD BEBIOPSIED. Dictated by: Orville Hoffmann MD on 08/07/2023 at 11:19 Approved by: Orville Hoffmann MD on 08/07/2023 at 11:23 Dictated By: Orville Hoffmann M.D. Signed By:08/07/23 1125 DD/ 1123 TD/TT: Table Worker Packager: us Fay [facility] Final Result documented in this encounter Visit Diagnoses Not on filedocumented in this encounter Care Teams Pediatric Anesthesiologist Relationship Specialty Start Date End Date Case Moe MD [address] [place] [address] PCP - General Internal Medicine 08/14/22 documented as of this encounter
--- OUTSIDE RECORDS SUMMARY | 2024-09-07 08:29 | XMS_ITS | Clinical Summary ---
Author Organization [facility] Address [address] [place] [address] Care Team Providers Care Director Television Name Role Phone Te Carlos MD Primary Care Provider [phone] Allergies Active Allergy Reactions Criticality Noted Date Comments Metronidazole Hcl Mental Status Change 12/05/19 13 Medications No known medications Active Problems Problem Noted Date Diagnosed Date Leukocytosis 12/02/2012 Social History Tobacco Use Types Packs/Day Years Used Date Smoking Tobacco: Every Day Cigarettes 0.5 25 Smokeless Tobacco: Never Alcohol Use Standard Drinks/Week Comments Not Asked 0 (1 standard drink = 0.6 oz pur e alcohol) Comments No Sex and Gender Information Value Date Recorded Sex Assigned at Not on file Legal Sex Female 8:43 AM EDT Gender Identity Not on file Sexual Orientation Not on file Last Filed Vital Signs Vital Sign Reading Time Taken Comments Blood Pressure 121/82 01/01/2013 3:41 PM EDT Pulse 77 01/01/2013 3:41 PM EDT Temperature 37 C (98.6 F) 01/01/2013 3:41 PM EDT Respiratory Rate 14 01/01/2013 3:41 PM EDT Oxygen Saturation - - Inhaled Oxygen Concentration - - Weight 83 kg (183 lb) 03/24/2013 1:54 PM EST Height 165.1 cm (5' 5 ) 03/24/2013 1:54 PM EST Body Mass Index 30.45 03/24/2013 1:54 PM EST Plan of Treatment Health Maintenance Due Date Last Done Comments Anxiety Screening 02/04/1992 Depression Screening 02/04/1992 HIV Screening 02/04/1992 Hepatitis C Screening 02/04/1992 DTaP,Tdap,Td Vaccine (1 - Tdap) 1993 Hepatitis B Vaccine (1 of 3 - 19+ 3-dose series) 02/03 Cervical Cancer Screening [address] Colonography 2019 Cologuard (FIT-DNA) 2019 Colonoscopy 2019 Colorectal Cancer Screening 2019 Diabetes Screening 2019 Fecal Occult Blood 2019 Lipid Screening 2019 Sigmoidoscopy 2019 Covid-19 Vaccine (1 - 2023- season) 2023 Pneumococcal Vaccine: 50+ (1 of 1 - PCV) 02/04/2024 Shingrix Vaccine (1 of 2) 02/04/2024 Influenza Vaccine (Season Ended) 2024 [facility] Care Teams Director Television Relationship Specialty Start Date End Date Te Carlos MD PCP - General Family Medicine 11/25/12
--- OUTSIDE RECORDS SUMMARY | 2024-09-07 08:29 | XMS_ITS | Encounter Summary ---
Author Organization [employer] Address [id number] [address] [place] [address] Care Team Providers Care Court Bailiff Or Sheriff Name Role Phone Te Carlos MD Primary Care Provider [phone] Encounter Details Date Type Department Care Team (Late st Contact Info) Description 08/17/2024 Telephone [facility] [address] [place] [phone] Chantal Ovalle, FOREMAN SHIPPING DEPARTMENT-SERVICES TECH [address] [place], [place] [id number] Social History Tobacco Use Types Packs/Day Years Used Date Smoking Tobacco: Never Assessed Childcare Answer Date Recorded Childcare Unknown 09/17/2018 Employment Answer Date Recorded Employment Unknown 09/17/2018 Purpose - Life Answer Date Recorded Purpose and direction in life Unknown Comments Unknown Sex and Gender Information Value Date Recorded Sex Assigned at Not on file Legal Sex Female 11:32 AM EDT Gender Identity Not on file Sexual Orientation Not on file documented as of this encounter Miscellaneous Notes * Telephone Encounter - Zenaida Antunez - 08/17/2024 11:31 AM EDT Called Katharine regarding the trouble swallowing referral that our office received from Dr Guardado, left a message on voicemail to call the office back to schedule an appointment. * Telephone Encounter - Zenaida Antunez - 08/17/2024 11:31 AM EDT Called Katharine regarding the referral that our office received, left a message on voicemail to call the office back to schedule an appointment. * Telephone Encounter - Zenaida Antunez - 08/17/2024 11:31 AM EDT Called Katharine regarding the referral that our office received, left a message on voicemail to call the office back to schedule an appointment. documented in this encounter Plan of Treatment Not on file documented as of this encounter Visit Diagnoses Not on filedocumented in this encounter Care Teams Court Bailiff Or Sheriff Relationship Specialty Start Date End Date Te Carlos MD [address] [place] [address] PCP - General Family Medicine 08/17/24 documented as of this encounter
--- OUTSIDE RECORDS SUMMARY | 2024-09-07 08:29 | XMS_ITS | Clinical Summary ---
Author Organization [facility] tem Address [id number] [address] 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 07/24/19 25 Active tiZANidine (ZANAFLEX) 4 mg tablet Take 1 tablet (4 mg total) by mouth 3 (three) times a day. Active venlafaxine XR (EFFEXOR XR) 37.5 mg 24 hr capsule Take 1 capsule (37.5 mg total) by mouth in the morning. 07/21/19 25 026 Active omeprazole (PriLOSEC) 20 mg capsuleIndicati ons:Dysphagia, unspecified type Take 1 capsule (20 mg total) by mouth in the morning. 30 capsule 1 09/03/19 25 Active peg 3350-sod sulf,chlr-pot-m ag 178.7-7.3-0.5 gram recon solnIndications :Encounter for screening colonoscopy Take 1 kit by mouth in the morning for 1 dose. Please see instructional sheet given by physicians office. 1 each 09/03/19 25 025 Active Problems No known active problems Encounters Date Type Department Care Team Description 09/02/2024 2:30 PM EDT Office Visit [facility] [address] [place] [phone] Chantal Ovalle APRN-CNP Dysphagia, unspecified type (Primary Dx); Encounter for screening colonoscopy 09/02/2024 Travel 08/17/2024 Telephone [facility] [address] [place] [phone] Chantal Ovalle APRN-CNP from Last 3 Months Family History Medical History Relation Name Comments Breast cancer Cousin Lung cancer Maternal Uncle Lung cancer Maternal cousin Relation Name Status Comments Cousin Alive Father Alive Maternal Uncle Maternal cousin Mother Alive Social History Tobacco Use Types Packs/Day Years [...] Mass Index 34.84 09/02/2024 2:21 PM EDT Plan of Treatment Health Maintenance Due Date Last Done Comments Tobacco Counseling 1975 Depression Screening 1986 Adult BMI Follow Up Plan 02/04/1992 COVID-19 Vaccine (2023-2 5 season) 2023 02/01/2021, 05/04/2020, 04/07/2020 Zoster (Shingles) Vaccine (1 of 2) 02/04/2024 Influenza Vaccine 12/07/2024 01/28/2024, , 2009 Adult BMI Screening 09/02/2025 09/02/2024 Tobacco Screening 09/02/2025 09/02/2024 Pap Smear 08/13/2027 08/12/2024 DTaP,Tdap and Td Vaccines (2 - Td or Tdap) 04/23/2033 04/23/2023 Medical Devices Not on file Insurance [facility] Care Teams Manager Environmental Affairs Relationship Specialty Start Date End Date Te aCrlos MD [address] [facility] [place] [address] PCP - General Family Medicine 08/17/24
--- OUTSIDE RECORDS SUMMARY | 2024-09-07 08:29 | XMS_ITS | Encounter Summary ---
Author Organization [facility] Address [address] [facility] [place] [address] Care Team Providers Care Court Deputy Name Role Phone Case Moe MD Primary Care Provider [phone] Encounter Details Date Type Department Care Team (Late Contact Info) Description 08/05/2023 Clinisync Result Encounter [facility] External Department Unsolicited Fay Sahni PA [address] [place], [facility] Social History Tobacco Use Types Packs/Day Years [...] Encounters Date Type Department Care Team (Late st Contact Info) Description 09/10/2024 8:00 AM EDT Office Visit [facility] [address] [facility] [place] [id number] Kishan Guardado DO [address] [place], [facility]11 documented as of this encounter Procedures Procedure Name Priority Date/Time Associated Diagnosis Comments MM TOMOSYNTHESIS DIAGNOSTIC LT 08/05/2023 1:12 PM EDT documented in this encounter Results * MM TOMOSYNTHESIS DIAGNOSTIC LT (08/05/2023 1:12 PM EDT) Anatomical Region Laterality Modality Other 08/05/2023 1:12 PM EDT Narrative 08/05/2023 1:12 PM EDT The [address] [address] Mammography Report Signed Patient: Katharine Hansen MR#: [id number] : 1975 Acct:[id number] Age/Sex: 48 / F ADM Date: 08/05/23 Loc: US Attending Dr: Fay Sahni Ordering Physician: Fay Sahni Results: Date of Service: 08/05/23 Follow Up: Procedure(s): MM tomosynthesis diagnostic LT Accession Number(s): [id number] cc: Fay Sahni; Physician,Non-Staff M.Elizabeth Patient Name: KATHARINE HANSEN MR#: [id number] : 1975 Exam Date: 08/05/2023 Ordering Doctor: YONI Sahni . RADIOLOGY REPORT PROCEDURE: MM TOMOSYNTHESIS DIAGNOSTIC LT COMPARISON: MM TOMOSYNTHESIS SCREENING BI, 04/25/2023. MAMMO MARGY SCREEN, 06/29/2021. INDICATIONS: Left Breast Pain N64.4 Calculator Name NCI Breast Cancer Risk Assessment Tool 5 Year Breast Cancer Risk 0.60% Lifetime Breast Cancer Risk 6.10% Personal Breast Cancer No Personal Ovarian Cancer No Treatments None Family Cancers Grandmother-paternal with breast cancer at age 70; Uncle-maternal with lung cancer at age 72. LOCATION: [facility] BREAST COMPOSITION: The breasts are heterogeneously dense,which may obscure small masses. FINDINGS: DIAGNOSTIC CATEGORY 1--NEGATIVE. LEFT BREAST: No significant suspicious finding. No significant change has occurred. RECOMMENDATIONS: ROUTINE MAMMOGRAM AND CLINICAL EVALUATION IN 12 MONTHS. PLEASE NOTE: A NORMAL MAMMOGRAM DOES NOT EXCLUDE THE POSSIBILITY OF BREAST CANCER. A CLINICALLY SUSPICIOUS PALPABLE LUMP SHOULD BE BIOPSIED. Dictated by: Drake Fraser M.D. on 08/05/2023 at 13:09 Approved by: Drake Fraser M.D. on 08/05/2023 at 13:12 Dictated By: Drake Fraser M.D. Signed By: 08/05/231311 DD/ 11 TD/TT: Gas Turbine Assembler: Procedure Note Radiology, Radiologist, MD - 08/05/2023 [place] [address] Mammography Report Signed Patient: Katharine Hansen RMR#: [id number] : 1975Acct:[id number] Age/Sex: 48 / FADM Date: 08/05/23 Loc: US Attending Dr: Fay Sahni Ordering Physician: Fay SahniResults: Date of Service: 08/05/23Follow Up: Procedure(s): MM tomosynthesis diagnostic LT Accession Number(s): [id number] cc: Fay Sahni; Physician,Non-Staff Kelvin Patient Name: KATHARINE HANSEN MR#: [id number] : 1975 Exam Date: 08/05/2023 Ordering Doctor: YONI Sahni . RADIOLOGY REPORT PROCEDURE: MM TOMOSYNTHESIS DIAGNOSTIC LT COMPARISON: MM TOMOSYNTHESIS SCREENING BI, 04/25/2023. MAMMO BILSCREEN, 06/29/2021. INDICATIONS: Left Breast Pain N64.4 Calculator Name NCI Breast Cancer Risk Assessment Tool 5 Year Breast Cancer Risk 0.60% Lifetime Breast Cancer Risk 6.10% Personal Breast Cancer No Personal Ovarian Cancer No Treatments None Family Cancers Grandmother-paternal with breast cancer at age 70; Uncle-maternal with lung cancer at age 72. LOCATION: [facility] BREAST COMPOSITION: The breasts are heterogeneously dense,which may obscure small masses. FINDINGS: DIAGNOSTIC CATEGORY 1--NEGATIVE. LEFT BREAST: No significant suspicious finding. No significant changehas occurred. RECOMMENDATIONS: ROUTINE MAMMOGRAM AND CLINICAL EVALUATION IN 12 MONTHS. PLEASE NOTE: A NORMAL MAMMOGRAM DOES NOT EXCLUDE THE POSSIBILITY OFBREAST CANCER. A CLINICALLY SUSPICIOUS PALPABLE LUMP SHOULD BE BIOPSIED. Dictated by: Drake rFaser M.D. on 08/05/2023 at 13:09 Approved by: Drake Fraser M.D. on 08/05/2023 at 13:12 Dictated By: Drake Fraser M.D. Signed By:08/05/231311 DD/ 1312 TD/TT: Gas Turbine Assembler: us Fay [facility] Final Result documented in this encounter Visit Diagnoses Not on filedocumented in this encounter Care Teams Court Deputy Relationship Specialty Start Date End Date Case Moe MD [address] [place] [address] PCP - General Internal Medicine 08/14/22 documented as of this encounter
--- OUTSIDE RECORDS SUMMARY | 2024-09-07 08:29 | XMS_ITS | Encounter Summary ---
Author Organization [employer] Address [id number] [address] [place] [address] Care Team Providers Care Auto Service Station Attendant Name Role Phone Te Carlos MD Primary Care Provider [phone] Encounter Details Date Type Department Care Team (Latest Contact Info) Description 09/02/2024 Travel Social History Tobacco Use Types Packs/Day Years Used Date Smoking Tobacco: Every Day Cigarettes Smokeless Tobacco: Never Alcohol Use Standard Drinks/Week Comments Never 0 [...] as of this encounter Plan of Treatment Not on file documented as of this encounter Visit Diagnoses Not on filedocumented in this encounter Care Teams Auto Service Station Attendant Relationship Specialty Start Date End Date Te Carlos MD [address] [place] [address] PCP - General Family Medicine 08/17/24 documented as of this encounter
--- OUTSIDE RECORDS SUMMARY | 2024-09-07 08:29 | XMS_ITS | Encounter Summary ---
Author Organization [facility] Address [address] [facility] [place] [address] Care Team Providers Care Washhouse Worker Name Role Phone Case Moe MD Primary Care Provider [phone] Encounter Details Date Type Department Care Team (Late Contact Info) Description 09/04/2024 Telephone [facility] OB [address] [facility] [facility] [place] [address] Teresita Vyas LPN Social History Tobacco Use Types Packs/Day Years [...] encounter Miscellaneous Notes * Telephone Encounter - Teresita Vyas LPN - 09/04/2024 1:41 PM EDT Refer patient to Dr. Silva documented in this encounter Plan of Treatment Upcoming Encounters Date Type Department Care Team (Late st Contact Info) Description 09/10/2024 8:00 AM EDT Office Visit [facility] OB [address] [facility] [place] [address] Kishan Guardado, DO [address] [facility] [address] [place] [address] documented as of this encounter Visit Diagnoses Not on filedocumented in this encounter Care Teams Washhouse Worker Relationship Specialty Start Date End Date Case Moe MD [address] [address] PCP - General Internal Medicine 08/14/22 documented as of this encounter
--- OUTSIDE RECORDS SUMMARY | 2024-09-07 08:29 | XMS_ITS | Clinical Summary ---
Author Organization [facility] Address [address] [facility] [place] [address] Care Team Providers Care Butcher Apprentice Name Role Phone Case Moe MD Primary Care Provider [phone] Allergies Active Allergy Reactions Criticality Noted Date Comments Metronidazole Other 12/04/2012 neuro Other Reaction(s): Lymphoreticular Cancer, Mental Status Change, Unknown Medications venlafaxine XR (Effexor XR) 37.5 MG 24 hr capsuleIndicati ons:Perimenopau andrew vasomotor symptoms Take 1 capsule (37.5 mg) by mouth Daily Do not crush or chew. 30 capsule 5 07/20/2024 07/21/19 26 Active terbinafine (LamISIL) 250 MG tabletIndicatio ns:Onychomycosi s of Toenails Take 1 tablet (250 mg) by mouth Daily 30 tablet 07/23/2024 08/23/19 25 Active Problems No known active problems Encounters Date Type Department Care Team Description 09/04/2024 Telephone [facility] [address] [place] [address] Teresita Vyas LPN 08/24/2024 Orders Only [facility] [address] [place] [address] Penny Blue LPN 08/20/2024 Abstract [facility] [address] [place] [address] Manjula Unger MA 08/12/2024 3:00 PM EDT Office Visit [facility] [address] [place] [phone] Fay Sahni PA Well woman exam with routine gynecological exam; Breast cancer screening by mammogram; Postmenopausal state; Dysphagia, unspecified type 08/12/2024 External Result Encounter [facility] External Department Unsolicited Kishan Guardado DO 08/12/2024 Clinisync Result Encounter [facility] External Department Unsolicited Fay Sahni PA 08/12/2024 Bamboo flowsheet [facility] [address] [place] [address] Fay Sahni PA 07/23/2024 9:40 AM EDT Office Visit [facility] [address] [facility] [address] [place] [address] Tien Chacko DPM Onychocryptosis (Primary Dx); Toe pain, right; Abscess of toe, right; Onychomycosis; Toe pain, left 07/23/2024 Bamboo flowsheet [facility] [address] [facility] [address] [place] [address] Tien Chacko DPM 07/23/2024 Travel 07/22/2024 Clinisync Result Encounter [facility] External Department Unsolicited Breanne Perez NP 07/21/2024 Clinisync Result Encounter [facility]OM[facility] External Department Unsolicited Breanne Perez NP 07/20/2024 1:10 PM EDT Office Visit [facility] [address] [place] [address] Breanne Perez NP Hormone disorder (Primary Dx); Dysphagia, unspecified type; Perimenopausal vasomotor symptoms 07/20/2024 Bamboo flowsheet [facility] [address] [place] [phone] Breanne Perez NP 07/19/2024 Travel 07/09/2024 2:10 PM EDT Office Visit [facility] [address] [facility] [address] [place] [phone] Tien Chacko DPM Onychocryptosis (Primary Dx); Toe pain, right; Abscess of toe, right; Onychomycosis; Toe pain, left 07/09/2024 Bamboo flowsheet [facility] [address] [facility] [address] [place] [address] Tien Chacko DPM 07/09/2024 Travel from Last 3 Months Family History Medical History Relation Name Comments Heart disease Father Heart disease Maternal Grandfather Stroke Maternal Grandmother Cancer Paternal Grandmother Relation Name Status Comments Father Maternal Grandfather Maternal Grandmother Paternal Grandmother Social History Tobacco Use Types Packs/Day Years Used Date Smoking Tobacco: Every Day Cigarettes Tobacco Cessation:Ready to Q uit: Not Asked; Counseling Given: Yes Alcohol Use Standard Drinks/Week Comments Yes 0 [...] Sign Reading Time Taken Comments Blood Pressure 116/78 08/12/2024 3:36 PM EDT Pulse - - Temperature - - Respiratory Rate 18 07/23/2024 9:41 AM EDT Oxygen Saturation - - Inhaled Oxygen Concentration - - Weight 91.5 kg (201 lb 12.8 oz) 08/12/2024 3:36 PM EDT Height 162.6 cm (5' 4 ) 07/23/2024 9:41 AM EDT Body Mass Index 34.64 07/23/2024 9:41 AM EDT Plan of Treatment Upcoming Encounters Date Type Department Care Team (Late st Contact Info) Description 09/10/2024 8:00 AM EDT Office Visit [facility] [address] [place] [address] Kishan Guardado, DO [address] [place] [address] Health Maintenance Due Date Last Done Comments CT Colonography 1975 Colonoscopy 1975 Colorectal Cancer Screening 1975 FIT-DNA 1975 FIT 1975 FOBT 1975 Sigmoidoscopy 1975 Mammogram 06/29/2022 06/29/2021 Influenza Vaccine Completed 01/28/2024, 01/21/2019 Cervical Cancer Screening Discontinued Pap Smear Discontinued 08/12/2024 HPV/Cotest Discontinued Procedures Procedure Name Priority Date/Time Associated Diagnosis Comments IGP,APTIMA HPV,AGE GDLN Routine 08/12/2024 3:25 PM EDT PAP SMEAR Routine 08/12/2024 12:00 AM EDT PATHOLOGY REQUEST FOR LAB MARLEEN Routine 08/12/2024 12:00 AM EDT US THYROID 07/22/2024 8:05 AM EDT [facility] TESTOSTERONE FREE/TOT EQUILIB Routine 07/21/2024 7:27 AM EDT TBH THYROID ANTIBODIES Routine 7:27 AM EDT UH SEROTONIN Routine 07/21/2024 7:27 AM EDT METRO SEX BINDING HORMONE (SHBG), TESTOSTERONE, FREE AND BIOAVAILABLE Routine 07/21/2024 7:27 AM EDT ALL T3 REVERSE Routine 07/21/2024 7:27 AM EDT ALL ESTRONE(E1) Routine 07/21/2024 7:27 AM EDT ALL PROGESTERONE Routine 07/21/2024 7:27 AM EDT ALL DHEA SULFATE Routine 07/21/2024 7:27 AM EDT CORTISOL, FREE DIALYSIS, LCMS Routine 07/21/2024 7:27 AM EDT ALL C-PEPTIDE Routine 07/21/2024 7:27 AM EDT TBH ESTRONE Routine 07/21/2024 7:27 AM EDT [facility] INSULIN Routine 07/21/2024 7:27 AM EDT ALL THYROXINE (T4) FREE Routine 07/21/2024 7:27 AM EDT [facility] FERRITIN Routine 07/21/2024 7:27 AM EDT ALL THYROID STIM HORMONE Routine 07/21/2024 7:27 AM EDT ALL THYROXINE (T4) Routine 07/21/2024 7: 27 AM EDT ALL T3 FREE Routine 07/21/2024 7:27 AM EDT [facility] GLUCOSE BLOOD Routine 07/21/2024 7:2 7 AM EDT BI MAMMOGRAM SCREENING TOMOSYNTHESIS BILATERAL Routine 06/29/2021 Overweight Nicotine dependence, unspecified, uncomplicated Acquired absence of both cervix and uterus Mastodynia Mastitis without abscess Low back pain, unspecified Encounter for screening mammogram for malignant neoplasm of breast from Last 3 Months or Most Recently Relevant to Health Maintenance Results * IGP,APTIMA HPV,AGE GDLN (08/12/2024 3:25 PM EDT) AGE GDLN ACOG TESTING Note . [facility] Comment: TESTS RESULT FLAG UNITS REF RANGE LAB Clinician Provided Cytology Information Source.............Vagina No. of containers..01 ThinPrep Vial Age Algo ACOG Charo... 30-65 01 FLAG LEGEND: L-Low Normal,H-High Normal,LL-Alert Low,HH-Alert High <-Panic Low,>-Panic High,A-Abnormal,AA-Critical Abnormal Performed at: 01 =G [facility] [place] [address] [place] [address] Elizabeth Rea MD, IGP, APTIMA HPV, RFX 16/18,45 Note . [facility] Comment: TESTS RESULT FLAG UNITS REF RANGE LAB DIAGNOSIS: 02 NEGATIVE FOR INTRAEPITHELIAL LESION OR MALIGNANCY. THIS SPECIMEN WAS RESCREENED PART OF OUR [employer] ENGINEER PROGRAM. Specimen adequacy: 02 Satisfactory for evaluation. No endocervical cells are present. This is consistent with a history of hysterectomy. Performed by: Abdon Rodriguez, Job Analysis Manager (ASCP) QC reviewed by: 02 Giovanna Starr Job Analysis Manager . 02 Note: Note 02 The Pap smear is a screening test designed to aid in the detection of premalignant and malignant conditions of the uterine cervix. It is not a diagnostic procedure and should not be used as the sole means of detecting cervical cancer. Both false-positive and false-negative reports do occur. Test Methodology: Note 02 This liquid based ThinPrep(R) pap test was screened with the use of an image guided system. HPV Genotype Reflex Note 02 Criteria not met, HPV Genotype not performed. FLAG LEGEND: L-Low Normal,H-High Normal,LL-Alert Low,HH-Alert High <-Panic Low,>-Panic High,A-Abnormal,AA-Critical Abnormal Performed at: [address] [address] Elizabeth Rea MD, HPV APTIMA Negative Negative [facility] Comment: This nucleic acid amplification test detects fourteen high- risk HPV types (16,18,31,33,35,39,45,51,52,56,58,59,66,68) without differentiation. Performed at: =[address] [id number] Outdoor Recreation Specialist: Elizabeth Rea MD, Phone: [phone] Performed at: [address] [id number] Outdoor Recreation Specialist: Elizabeth Rea MD, Phone: [phone] 08/12/2024 3:25 PM EDT 08/12/2024 9:32 PM EDT Angelia HUBER - 08/18/2024 8:08 AM EDT SPATULA-ALONE VAGINA Fay VALLEJO LAB BLOOD ORDERABLES Final Resul t [facility]NC [facility] * PATHOLOGY REQUEST FOR LAB MARLEEN (08/12/2024 12:00 AM EDT) PATHOLOGY REQUEST FOR LAB MARLEEN 08/18/2024 12:57 PM EDT [facility] Comment:See report. Scanned copy available in EMR. Other Topography unknown / Unknown 08/12/2024 08/13/2024 1:15 PM EDT Angelia [facility] - 08/18/2024 12:57 PM EDT CYST SPECIMEN us Kishan Guardado DO LAB BLOOD ORDERABLES Final Resul t [facility] [address] [place] [address], [facility] [address] [place] [address] * Pap Smear (08/12/2024 12:00 AM EDT) Swab Cervical swab / Unknown Fay Sahni PA LAB CYTOLOGY ORDERABLES Final Re sult EXTERNAL LAB * US thyroid (07/22/2024 8:05 AM EDT) Anatomical Region Laterality Modality Head, Neck Ultrasound 07/22/2024 8:05 AM EDT Narrative 07/22/2024 8:07 [place] [address] Ultrasound Report Signed Patient: KATHARINE ARRINGTON MR#: [id number] : 1975 Acct:[id number] Age/Sex: 49 / F ADM Date: 07/22/24 Loc: US Attending Dr: Breanne Perez Ordering Physician: Breanne Perez Date of Service: 07/22/24 Procedure(s): US thyroid Accession Number(s): [id number] cc: Breanne Perez; Physician,Non-Staff M.DMargaret [address] [address] Patient Name: KATHARINE ARRINGTON MRN: [id number] date: 1975 Sex: F Assigned Patient Location: US Current Patient Location: US Accession/Order Number: [id number] Exam Date: 07/22/2024 08:03 Report Date: 07/22/2024 [...] Debbie Nieto M.D.07/22/2024 8:05 AM Dictation Location: [place] [address] Electronically authenticated by: [id number] Y Date: 07/22/2024 08:05 Dictated By: Debbie Nieto M.D. Signed By: 07/22/24806 DD/ 4 TD/TT: Lbd Teacher: Procedure Note Radiology, Radiologist, MD - 07/22/2024 [place] [address] Ultrasound Report Signed Patient: KATHARINE ARRINGTON RMR#: [id number] : 1975Acct:[id number] Age/Sex: 49 / FADM Date: 07/22/24 Loc: US Attending Dr: Breanne Perez Ordering Physician: Breanne Perez Date of Service: 07/22/24 Procedure(s): US thyroid Accession Number(s): [id number] cc: Breanne Perez; Physician,Non-Staff [place]vin [place] [id number] Patient Name: KATHARINE ARRINGTON MRN: [id number] date: 1975 Sex: F Assigned Patient Location: US Current Patient Location: US Accession/Order Number: [id number] Exam Date: 07/22/2024 08:03 Report Date: 07/22/2024 08:05 At the request of: BREANNE PEREZ Procedure: US thyroid THYROID ULTRASOUND CLINICAL DATA: Dysphagia COMPARISON: None The right thyroid lobe measures 4.9 x 1.5 x 1.2 cm. The left lobemeasures 4.5 x 1.9 x 1.4 cm. The isthmus measures 2 - 3 mm . Following cysts areseen bilaterally measuring under 5 mm in size. No solid nodules are noted. US/US thyroid IMPRESSION: TINY COLLOID CYSTS. Impression dictated by: Debbie Nieto M.D.07/22/2024 8:05 AM Dictation Location: [place] [address] Electronically authenticated by: [id number] Y Date: 508:05 Dictated By: Debbie Nieto M.D. Signed By:07/22/24806 DD/ 4 TD/TT: Lbd Teacher: Breanne Perez NP IMG US PROCEDURES Final Resul t * CORTISOL, FREE DIALYSIS, LCMS (07/21/2024 7:27 AM EDT) CORTISOL, FREE DIALYSIS, LCMS 0.348 . ug/dL TBH Comment: These tests were developed and their performance characteristics determined by [facility]. They have not been cleared or approved by the Food and Drug Administration. Reference Range: 8 AM 0.10 - 1.20 4 PM 0.042 - 0.872 Performed at: [employer] [address] [place] [id number] Outdoor Recreation Specialist: Tera Solorzano MD, Phone: [phone] 07/21/2024 7:27 AM EDT 07/21/2024 7:42 AM EDT Narrative MAYO - 07/27/2024 10:08 PM EDT rBeanne Perez NP LAB BLOOD ORDERABLES Final Re sult [facility] * SEROTONIN (07/21/2024 7:27 AM EDT) SEROTONIN, SERUM 83 31 - 207 ng/mL TB Comment: This test was developed and its performance characteristics determined by [facility]. It has not been cleared or approved by the Food and Drug Administration. Performed at: [address] [id number] Outdoor Recreation Specialist: Julieth Larios MD, Phone: [phone] 07/21/2024 7:27 AM EDT 07/21/2024 7:42 AM EDT Narrative CLINISYNC - 08/04/2024 4:11 PM EDT us Breanne Perez NP CLINISYNC Final Result Performing Organization Address [facility] de Phone Number CLINISYWI TB * TBH THYROID ANTIBODIES (07/21/2024 7:27 AM EDT) THYROID PEROXIDASE (TPO) AB 11 0 - 34 IU/mL TB THYROGLOBULIN ANTIBODY <1.0 0.0 - 0.9 IU/mL [facility] Comment: Thyroglobulin Antibody measured by [employer] Methodology It should be noted that the presence of thyroglobulin antibodies may not be pathogenic nor diagnostic, especially at very low levels. The assay cotton factor has found that four percent of individuals without evidence of thyroid disease or autoimmunity will have positive TgAb levels up to 4 IU/mL. Performed at: [employer] [id number] Outdoor Recreation Specialist: Clarence Taylor PhD, Phone: [phone] 07/21/2024 7:27 AM EDT 07/21/2024 7:42 AM EDT Narrative CLINISYNC - 08/04/2024 4:11 PM EDT us Breanne Perez NP CLINISYNC Final Result Performing Organization Address [facility] de Phone Number CLINISYNC TB * TBH INSULIN (07/21/2024 7:27 AM EDT) Pathologist [facility] INSULIN 12.8 2.6 - 24.9 uIU/mL TBH Comment: Performed at: [address] [id number] Outdoor Recreation Specialist: Clarence Taylor PhD, Phone: [phone] 07/21/2024 7:27 AM EDT 07/21/2024 7:42 AM EDT Narrative CLINISYNC - 07/23/2024 2:08 PM EDT us Breanne Perez NP CLINISYNC Final Result Performing Organization Address [facility]/ZIP Co de Phone Number [facility]NC [facility] * TBH GLUCOSE BLOOD (07/21/2024 7:27 AM EDT) GLUCOSE 97 74 - 106 mg/dL TBH 07/21/2024 7:27 AM EDT 07/21/2024 7:42 AM EDT Narrative CLINISYNC - 07/21/2024 8:52 AM EDT Breanne Perez NP CLINISYNC Final Result Performing Organization Address [facility] de Phone Number [facility] * TBH ESTRONE (07/21/2024 7:27 AM EDT) ESTRONE, SERUM 26 . pg/mL TBH Comment: Range Adult (Premenopausal) 27 - 231 Menstrual Cycle (1-10 days) 19 - 149 Menstrual Cycle (11-20 days) 32 - 176 Menstrual Cycle (21-30 days) 37 - 200 Adult (Postmenopausal) 0 - 125 Performed at: [address] [id number] Outdoor Recreation Specialist: Julieth Larios MD, Phone: [phone] 07/21/2024 7:27 AM EDT 07/21/2024 7:42 AM EDT Narrative CLINISYNC - 07/23/2024 2:08 PM EDT Breanne Perez NP CLINISYNC Final Result Performing Organization Address [facility] Co de Phone Number CLINISYNC TB * [facility] TESTOSTERONE FREE/TOT EQUILIB (07/21/2024 7:27 AM EDT) TESTOSTERONE 13 4 - 50 ng/dL TBH FREE TESTOSTERONE(DIRE CT) 1.6 0.0 - 4.2 pg/mL TBH Comment: Performed at: [address] [id number] Outdoor Recreation Specialist: Clarence Taylor PhD, Phone: [phone] Performed at: [address] [id number] Outdoor Recreation Specialist: Julieth Larios MD, Phone: [phone] 07/21/2024 7:27 AM EDT 07/21/2024 7:42 AM EDT Narrative CLINISYNC - 08/04/2024 4:11 PM EDT Breanne Perez NP CLINISYNC Final Result Performing Organization Address City/[facility]/ZIP Co de Phone Number [facility] * METRO SEX BINDING HORMONE (SHBG), TESTOSTERONE, FREE AND BIOAVAILABLE (07/21/2024 7:27 AM EDT) SEX HORM BINDING GLOB, SERUM 18.7 17.3 - 125.0 nmol/L TBH Comment: Performed at: [facility] [id number] Outdoor Recreation Specialist: Clarence Taylor PhD, Phone: [phone] 07/21/2024 7:27 AM EDT 07/21/2024 7:42 AM EDT Narrative CLINISYNC - 08/04/2024 4:11 PM EDT Breanne Perez NP CLINISYNC Final Result Performing Organization Address [facility] Co de Phone Number [facility] * [facility] FERRITIN (07/21/2024 7:27 AM EDT) FERRITIN 214.0 8.0 - 252.0 ng/mL TB 07/21/2024 7:27 AM EDT 07/21/2024 7:42 AM EDT Narrative CLINISYNC - 07/21/2024 9:47 AM EDT us Breanne Perez NP CLINISYNC Final Result Performing Organization Address City/[facility] Co de Phone Number CLINISYWI TB * ALL THYROXINE (T4) FREE (07/21/2024 7:27 AM EDT) FREE T4 1.23 0.76 - 1.46 ng/dL TBH 07/21/2024 7:27 AM EDT 07/21/2024 7:42 AM EDT Narrative CLINISYNC - 07/21/2024 9:47 AM EDT us Breanne Perez NP CLINISYNC Final Result Performing Organization Address [facility] de Phone Number CLINISYWI TB * ALL THYROXINE (T4) (07/21/2024 7:27 AM EDT) T4 THYROXINE 9.10 4.80 - 13.90 ug/dL TBH 07/21/2024 7:27 AM EDT 07/21/2024 7:42 AM EDT Narrative CLINISYNC - 07/21/2024 8:52 AM EDT Breanne Perez NP CLINISYNC Final Result Performing Organization Address [facility] Phone Number CLINISYWI TB * ALL THYROID STIM HORMONE (07/21/2024 7:27 AM EDT) THYROID STIMULATING HORMONE 1.573 0.358 - 3.740 uIU/mL TBH 07/21/2024 7:27 AM EDT 07/21/2024 7:42 AM EDT Narrative CLINISYNC - 07/21/2024 8:52 AM EDT Breanne Perez NP CLINISYNC Final Result Performing Organization Address [facility] de Phone Number CLINISYWI TB * ALL T3 REVERSE (07/21/2024 7:27 AM EDT) REVERSE T3, SERUM 19.6 9.2 - 24.1 ng/dL TBH Comment: This test was developed and its performance characteristics determined by [facility]. It has not been cleared or approved by the Food and Drug Administration. Performed at: [address] [id number] Outdoor Recreation Specialist: Julieth Larios MD, Phone: [phone] 07/21/2024 7:27 AM EDT 07/21/2024 7:42 AM EDT Narrative CLINISYNC - 08/04/2024 4:11 PM EDT Breanne Perez NP CLINISYNC Final Result Performing Organization Address [facility] Co de Phone Number [facility] * ALL T3 FREE (07/21/2024 7:27 AM EDT) FREE T3 3.45 2.18 - 3.98 pg/mL TBH 07/21/2024 7:27 AM EDT 07/21/2024 7:42 AM EDT Narrative CLINISYNC - 07/21/2024 8:52 AM EDT Breanne Perez NP CLINISYNC Final Result Performing Organization Address [facility] Co de Phone Number [facility] * ALL PROGESTERONE (07/21/2024 7:27 AM EDT) PROGESTERONE 0.1 . ng/mL TBH Comment: Follicular phase 0.1 - 0.9 Luteal phase 1.8 - 23.9 Ovulation phase 0.1 - 12.0 First trimester 11.0 - 44.3 Second trimester 25.4 - 83.3 Third trimester 58.7 - 214.0 Postmenopausal 0.0 - 0.1 07/21/2024 7:27 AM EDT 07/21/2024 7:42 AM EDT Narrative CLINISYNC - 08/04/2024 4:11 PM EDT us Breanne Perez NP CLINISYNC Final Result Performing Organization Address [facility] de Phone Number [facility] * ALL ESTRONE(E1) (07/21/2024 7:27 AM EDT) ESTRADIOL 19.5 . pg/mL TBH Comment: Adult Female Range Follicular phase 12.5 - 166.0 Ovulation phase 85.8 - 498.0 Luteal phase 43.8 - 211.0 Postmenopausal <6.0 - 54.7 1st trimester 215.0 - >4300.0 Yolie ECLIA methodology 07/21/2024 7:27 AM EDT 07/21/2024 7:42 AM EDT Narrative CLINISYNC - 08/04/2024 4:11 PM EDT Breanne Perez NP CLINISYMICKEY Final Result Performing Organization Address [facility] de Phone Number [facility] * (ABNORMAL) ALL DHEA SULFATE (07/21/2024 7:27 AM EDT) DHEA-SULFATE 39.0(A) 41.2 - 243.7 ug/dL [facility] 07/21/2024 7:27 AM EDT 07/21/2024 7:42 AM EDT Narrative CLINISYNC - 08/04/2024 4:11 PM EDT Breanne Perez NP CLINISYMICKEY Final Result Performing Organization Address [facility] Phone Number [facility] * ALL C-PEPTIDE (07/21/2024 7:27 AM EDT) C-PEPTIDE, SERUM 2.8 1.1 - 4.4 ng/mL [facility] Comment:C-Peptide reference interval is for fasting patients. 07/21/2024 7:27 AM EDT 07/21/2024 7:42 AM EDT Narrative CLINISYNC - 07/23/2024 2:08 PM EDT us Breanne Perez NP CLINISYMICKEY Final Result Performing Organization Address [facility] Phone Number [facility] * Bilateral screening mammogram with tomosynthesis (06/29/2021) Anatomical Region Laterality Modality Breast Bilateral Mammography Impressions 06/29/2021 12:00 AM EDT BIRADS 2 : BENIGN FINDINGS, NORMAL INTERVAL FOLLOW UP. FOLLOW-UP: 12 months DENSITY: Scattered MAMMOGRAPHY IS VERY IMPORTANT TO YOUR HEALTH. THE CURRENT [place] [employer] GUIDELINES RECOMMENDS ANNUAL MAMMOGRAPHY BEGINNING AT AGE 40 THIS FACILITY USES A REMINDER SYSTEM TO ENSURE ALL PATIENTS RECEIVE REMINDER NOTIFICATIONS AT THE APPROPRIATE TIME BASED ON THE RECOMMENDATIONS OF THIS EXAM. Board Certified Radiologist. Accredited by the ACR and FDA. Narrative 06/29/2021 12:00 AM EDT PERFORMED AT [facility] LOCATION:[place] [address] CLINICAL HISTORY: Diagnostic Mammogram. Heaviness and tenderness in the left breast. COMPARISON: Prior mammograms from 2017 2016 TECHNIQUE: 2D and 3D mammogram imaging of both breasts was performed, limited left breast ultrasound was performed. RESULT: DENSITY: There are scattered areas of fibroglandular density. There is no suspicious mass, asymmetry, architectural distortion, or calcification. No significant change since the prior mammograms. Ultrasound recommended to evaluate the area of tenderness within the lateral left breast. On the ultrasound, there are no suspicious findings. No focal mass or lesion. A few normal-appearing ducts. Procedure Note CONVERSION, GENERIC - 10/12/2022 PERFORMED AT [facility] LOCATION:[place] [address] CLINICAL HISTORY: Diagnostic Mammogram. Heaviness and tenderness in theleft breast. COMPARISON: Prior mammograms from 2017 2016 TECHNIQUE: 2D and 3D mammogram imaging of both breasts was performed,limited left breast ultrasound was performed. RESULT: DENSITY: There are scattered areas of fibroglandular density. There is no suspicious mass, asymmetry, architectural distortion, orcalcification. No significant change since the prior mammograms. Ultrasound recommendedto evaluate the area of tenderness within the lateral left breast. On theultrasound, there are no suspicious findings. No focal mass or lesion. A fewnormal-appearing ducts. IMPRESSION: BIRADS 2 : BENIGN FINDINGS, NORMAL INTERVAL FOLLOW UP. FOLLOW-UP: 12 months DENSITY: Scattered MAMMOGRAPHY IS VERY IMPORTANT TO YOUR HEALTH. THE CURRENT [place] [employer] GUIDELINES RECOMMENDS ANNUALMAMMOGRAPHY BEGINNING AT AGE 40 THIS FACILITY USES A REMINDER SYSTEM TO ENSURE ALL PATIENTS RECEIVEREMINDER NOTIFICATIONS AT THE APPROPRIATE TIME BASED ON THE RECOMMENDATIONS OF THIS EXAM. Board Certified Radiologist. Accredited by the ACR and FDA. us Debbie VALLEJO IMG BI PROCEDURES Final Result from Last 3 Months or Most Recently Relevant to Health Maintenance Insurance [employer] Care Teams Butcher Apprentice Relationship Specialty Start Date End Date Case Moe MD [address] [facility] [address] [place], [place] [address] PCP - General Internal Medicine 08/14/22
--- OUTSIDE RECORDS SUMMARY | 2024-09-07 08:29 | XMS_ITS | Patient Health Record ---
Author Organization [facility] vices Address [address] [place], [place] [id number] Care Team Providers Care Plastic Maker Name Role Phone Sandra Naranjo Primary Care Provider Allergies Allergen (clinical drug ingredient) Drug/Non Drug Allergy documented on EMR Reaction Allergy Type Onset Date Status metronidazole Flagyl Lymphoreticular Cancer Drug Allergy Active Results Component Value Reference Range Notes XR knee LT 4V Reviewed date:03/13/2024 11:34:10 AM Interpretation: Performing Lab: Notes/Report: Reason For Referral No Information Medications Medication SIG (Take, Route, Fr equency, Duration) Notes Start Date End Date Status tiZANidine HCl 4 MG 1 tablet as needed O rally Three times a day for 30 days Active Diclofenac Sodium 75 MG 1 tablet as need ed Orally Twice a day for 30 days 04/23/2023 Active Immunizations Vaccine Route Administration Date Status Comme nts *Tdap (Adacel)-Private IM Intramuscular 04/23/2023 Adminis tered Social History Tobacco Use: Social History Observation Description Date Details (start date - stop date) Current Smoker 04/08/1989 - NA Sex Assigned At : Social History Observation Description Sex Assigned At Female Tobacco Use/Smoking Question Answer Notes Tobacco use: current smoker patient enter ed data When did you start smoking? 04/08/1989 p atient entered data How often do you smoke cigarettes? every day patient entered data How many cigarettes a day do you smoke? 6-10 patient entered data How soon after you wake up d o you smoke your first cigarette? 6-30 minutes patient entered data Are you interested in quitting? Not ready to irma t patient entered data CAGE-AID Questionnaire (2018 Edition) Question Answer Notes Have you ever felt that you ought to cut down on your drinking or drug use? No patient entered data Have people annoyed you by c riticizing your drinking or drug use? No patient entered data Have you ever felt bad or gu ilty about your drinking or drug use? No patient entered data Have you ever had a drink or used drugs first thing in the morning to steady your nerves or to get rid of a hangover? No patient entered data CAGE-AID Score 0 Interpretation Negative PRAPARE Question Answer Notes Date Completed/Updated: 04/23/2023 elpidio nt entered data What is your current housing situation? I have housing patient entered data Are you worried about losing your housing? No patient entered data What is the highest level of school that you have finished? 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 Check all that apply I do not have problems meeting my needs Has lack of transportation k ept you from medical appointments, meetings, work or from getting things needed for daily living? No How often do you see or talk to people that you care about and feel close to? (For example: talking to friends on the phone, visiting friends or family, going to lutheran or club meetings) More than 5 times a week patient entered data How stressed are you? Stress is when someone feels tense, nervous, anxious, or can't sleep at night because their mind is troubled A little bit patient entered data In the past year have you sp ent more than 2 nights in a row in a retirement, longterm, intermediate center, or juvenile correctional facility? No patient entered bonilla a Are you a refugee? No patient en tered data What country are you from? [place] rohit alvarez entered data Do you feel physically and emotionally safe where you currently live? Yes patient entered data In the past year, have you b een afraid of your partner or ex-partner? No patient entered data PRAPARE Score: 2 Problems Problem Type SNOMED Code ICD Code Onset Dates Problem Status W/U Status Risk Notes Problem 254033582 Mixed hyperlipidemia (E78.2) Active confirmed Problem Cigarette nicoti ne dependence without complication (F17.210) Active confirmed Vital Signs Heart Rate 94 /min 10/03/2023 Nimesh Hauser 10/03/2023 01:33:55 PM EDT > Temperature 98.2 degrees Fahrenheit 10/03/2023 [facility] 10/03/2023 01:33:55 PM EDT > Respiratory Rate 18 /min 10/03/2023 [facility] 10/03/2023 01:33:55 PM EDT > Height-cm 162.56 cm 10/03/2023 Nimesh Hauser 10/03/2023 01:33:55 PM EDT > Oximetry 98 % 10/03/2023 Nimesh Hauser 10/03/2023 01:33:55 PM EDT > Blood pressure diastolic 83 mm Hg 10/03/2023 [facility] 01:33:55 PM EDT > Weight-kg 89.36 kg 10/03/2023 Nimesh Hauser 10/03/2023 01:33:55 PM EDT > Height 64 in 10/03/2023 Nimesh Hauser 10/03/2023 01:33:55 PM EDT > Blood pressure systolic 121 mm Hg 10/03/2023 [facility] 10/03/2023 01:33:55 PM EDT > Weight 197.0 lbs 10/03/2023 Nimesh Hauser 10/03/2023 01:33:55 PM EDT > BMI 33.81 kg/m2 10/03/2023 Nimesh Hauser 10/03/2023 01:33:55 PM EDT > Encounters Encounter Location Date Provider Diagnosis [id number] [place] [address] 10/03/2023 Sandra Jose A Knee pain, acute , left M25.562 Assessments Encounter Date Diagnosis (ICD Code) Assessment Notes Treatment Notes Treatment Clinical Notes Section Notes 10/03/2023 Knee pain, acute, left (ICD-10 - M25.562) Xray pleaced patient reports that she called ortho in [place] and they do not need referral, just needed an xray Plan Of Treatment No Information Insurance Providers Payer Name Payer Address Payer Phone Subscriber Number Group Number Insured Name Patient Relationship to Insured Coverage Start Date Coverage End Date Markos [employer] [address] [place], [place] [phone] [id number] Katharine Arrington Self - patient is the insured 3 Medical (General) History Medical History History ICD Code Asthma affecting , antepartum O 99.519 Ovarian cyst N83.209 Degenerative disc disease 722.6 Surgical History Surgery Date(Month/Year) EXTENSIVE HYSTERECTOMY cholecystectomy appendectomy cyst removed on left thigh
--- OUTSIDE RECORDS SUMMARY | 2024-09-07 08:29 | XMS_ITS | Encounter Summary ---
Author Organization [facility] Address [address] [facility] [place] [address] Care Team Providers Care Fountain Attendant Name Role Phone Case Moe MD Primary Care Provider [phone] Encounter Details Date Type Department Care Team (Late Contact Info) Description 08/20/2024 Abstract [facility] [address] [facility] [place] [address] Manjula Unger MA Social History Tobacco Use Types Packs/Day Years [...] 09/10/2024 8:00 AM EDT Office Visit [facility] [address] [place] [address] Kishan Guardado DO [address] [address] documented as of this encounter Visit Diagnoses Not on filedocumented in this encounter Care Teams Fountain Attendant Relationship Specialty Start Date End Date Case Moe MD [address] [place] [place], [place] [id number] PCP - General Internal Medicine 08/14/22 documented as of this encounter
--- OUTSIDE RECORDS SUMMARY | 2024-09-07 08:29 | XMS_ITS | Encounter Summary ---
Author Organization [facility] Address [address] [facility] [place] [address] Care Team Providers Care Junior Programmer Analyst Name Role Phone Case Moe MD Primary Care Provider [phone] Encounter Details Date Type Department Care Team (Late Contact Info) Description 08/24/2024 Orders Only [facility] [address] [facility] [place] [address] Penny Blue LPN [id number] Social History Tobacco Use Types Packs/Day Years [...] 09/10/2024 8:00 AM EDT Office Visit [facility] [address] [facility] [place] [address] Kishan Guardado [address] [place] [address] documented as of this encounter Procedures Procedure Name Priority Date/Time Associated Diagnosis Comments PAP SMEAR Routine 08/12/2024 12:00 AM EDT documented in this encounter Results * Pap Smear (08/12/2024 12:00 AM EDT) Swab Cervical swab / Unknown [facility] ORDERABLES Final Re sult EXTERNAL LAB documented in this encounter Visit Diagnoses Not on filedocumented in this encounter Care Teams Junior Programmer Analyst Relationship Specialty Start Date End Date Case Moe MD [address] [place] [address] PCP - General Internal Medicine 08/14/22 documented as of this encounter
--- OUTSIDE RECORDS SUMMARY | 2024-09-07 08:30 | XMS_ITS | Patient Health Record ---
Author Organization [facility] Address [address] [place] [address] Care Team Providers Care Straddle Truck Driver Name Role Phone Drake Contreras Unavailable [phone] Reason For Referral No Information Medications Medication SIG (Take, Route, Frequency, Duration) [...] 11/04/2023 Encounters Encounter Location Date Provider Diagnosis [facility] [address] [facility] [place] [address] 10/07/2023 Drake Contreras Chondromalacia, left knee M94.262 [facility] [address] [facility] [place] [address] 11/04/2023 Drake Contreras Chondromalacia, left knee M94.262 Assessments Encounter Date Diagnosis (ICD Code) Assessment Notes Treatment Notes Treatment Clinical Notes Section Notes 10/07/2023 Chondromalacia , left knee (ICD-10 - M94.262) 11/04/2023 Chondromalacia , left knee (ICD-10 - M94.262) 10/07/2023 Other 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 I recommended Mobic 15 mg daily. She will follow-up in 4 weeks to reassess her response to this medication. Caution as this medication have been reviewed. Import medication 11/04/2023 Other Patient is doing well on the meloxicam. She will discontinue the use once she has made it through the 6 weeks. If pain returns she will get it refilled. We have discussed this as a potential long-term treatment option and the need for following kidney function. She will follow-up on an as-needed basis. Import medication Plan Of Treatment Pending Test Test Name Order Date SCC- KNEE 4 VIEW [id number] 10/07/2023 Insurance Providers Payer Name Payer Address Payer Phone Subscriber Number Group Number Insured Name Patient Relationship to Insured Coverage Start Date Coverage End Date Markos [address] [place] [phone] [id number] JOSIAH HANSEN Self - patient is the insured Medical (General) History Medical History History ICD Code Chronic back pain:: Yes CPAP Machine:: No Healthcare worker: Yes Latex Allergy: No Have you been in close conta ct with someone who has had MRSA within the last year?: No Have you ever had or presently have MRSA ?: No Have you been seen by a dentist in the l ast year?: No Do you have any dental probl ems i.e. Broken, loose, or chipped teeth, absess, gum disease?: No
--- NOTE | 2024-09-07 08:31 | MM_ITS ---
Patient Name: JOSIAH HANSEN MR#: [id number] : 1975 Exam Date: 09/07/2024 Ordering Doctor: YONI LEDESMA . RADIOLOGY REPORT PROCEDURE: MM TOMOSYNTHESIS SCREENING BI COMPARISON: MM TOMOSYNTHESIS DIAGNOSTIC LT, 08/05/2023. MM TOMOSYNTHESIS SCREENING BI, 04/25/2023. MAMMO MARGY SCREEN, 06/29/2021. MG MAMM MARGY SCRN W CAD DIG, 03/10/2013. INDICATIONS: Screening Calculator Name NCI Breast Cancer Risk Assessment Tool 5 Year Breast Cancer Risk 0.60% Lifetime Breast Cancer Risk 6.00% Personal Breast Cancer No Personal Ovarian Cancer No Treatments None Family Cancers Grandmother-paternal with breast cancer at age 70; Uncle-maternal with lung cancer at age 72. LOCATION: [facility] BREAST COMPOSITION: The breasts are heterogeneously dense,which may obscure small masses. FINDINGS: LEFT BREAST: No significant suspicious finding. Previous focal asymmetries in the left breast are smaller and or resolved appeared benign-appearing lymph nodes are noted along the chest wall. RIGHT BREAST: No significant suspicious finding. There is a new 5 mm focal asymmetry of the right breast superiorly and laterally in the middle depth at approximately the 9 to 10 o'clock position 4.5 cm from the nipple. DIAGNOSTIC CATEGORY 0--INCOMPLETE: NEED ADDITIONAL IMAGING EVALUATION. RECOMMENDATIONS: ADDITIONAL MAMMOGRAPHIC VIEWS REQUIRED: RIGHT BREAST - spot compressed images of the right breast with ultrasound if necessary appeared ULTRASOUND: RIGHT BREAST PLEASE NOTE: A NORMAL MAMMOGRAM DOES NOT EXCLUDE THE POSSIBILITY OF BREAST CANCER. A CLINICALLY SUSPICIOUS PALPABLE LUMP SHOULD BE BIOPSIED. Dictated by: Parish Carlton MD on 09/07/2024 at 15:54 Approved by: Parish Carlton MD on 09/07/2024 at 16:01
--- OUTSIDE RECORDS SUMMARY | 2024-09-07 08:47 | XMS_ITS | CCD ---
Author Organization [facility] Care Team Providers Care Media Developer Name Role Phone CHRIS, BREANNE Admitting Unavailable HOY ., DR [...] Unavailable Case Moe MD Primary Care Provider [phone] TIEN CHACKO Attending Unavailable CHRIS, BREANNE Attending Unavailable TIEN CHACKO Attending Unavailable FAY LEDESMA Attending Unavailable Kishan Guardado Attending Unavailable Nanette Guardadoy Admitting Unavailable Kishan Guardado DO Attending Provider Fareed Carlos MD Primary Care Provider [phone] ZAC PALM Attending Unavailable FAREED CARLOS Referring Unavailable FAREED CARLOS Primary Care Unavailable Allergies Allergy Classification Reported Allergen(s) Allergy Type Date of Onset Reaction(s) Facility (1 source) metroNIDAZOLE Drug Allergy 4 [facility] Repository (18 sources) metroNIDAZOLE; Translations: [METRONIDAZOLE] Drug Allergy 3 Other, Other (See Comments) [facility] Work Phone: Medications Current Medications Medication Drug Class(es) Dates Sig (Normalized) Sig (Original) omeprazole 20 mg delayed release oral capsule (1 source) Proton Pump Inhibitor Start: 09-02-2024 take 1 capsule by mouth in the morning omeprazole (PriLOSEC) 20 mg capsule Indications: Dysphagia, unspecified type Take 1 capsule (20 mg total) by mouth in the morning. 30 capsule 1 09/02/2024 Active peg 3350-sod sulf,xiww-cav-cti 178.7-7.3-0.5 gram recon soln (1 source) Start: 09-02-2024 End: 09-03-2024 peg 3350-sod sulf,rhpy-kre-vur 178.7-7.3-0.5 gram recon soln Indications: Encounter for screening colonoscopy Take 1 kit by mouth in the morning for 1 dose. Please see instructional sheet given by physicians office. 1 each 09/02/2024 09/03/2024 Active terbinafine 250 mg oral tablet (8 sources) Allylamine Antifungal Start: 07-23-2024 End: 08-22-2024 take 1 tablet by mouth in the morning terbinafine (LamISIL) 250 mg tablet Take 1 tablet (250 mg total) by mouth in the morning. 07/23/2024 Active tiZANidine 4 mg oral tablet (1 source) Central alpha-2 Adrenergic Agonist take 1 tablet by mouth three times daily tiZANidine (ZANAFLEX) 4 mg tablet Take 1 tablet (4 mg total) by mouth 3 (three) times a day. Active 24 hr venlafaxine 37.5 mg extended release oral capsule (13 sources) Serotonin and Norepinephrine Reuptake Inhibitor Start: 07-20-2024 End: 07-20-2025 take 1 capsule by mouth every twenty-four hours in the morning venlafaxine XR (EFFEXOR XR) 37.5 mg 24 hr capsule Take 1 capsule (37.5 mg total) by mouth in the morning. 07/20/2024 07/20/2025 Active Start: 07-20-2024 End: 07-20-2025 take 1 capsule [...] disorder, unspecified] 07-20-2024 Episodic Other gastrointestinal disorders (3 sources) Dysphagia; Translations: [Dysphagia, unspecified] 07-20-2024 Episodic Other gastrointestinal disorders (1 source) Dysphagia, unspecified; Translations: [Dysphagia, unspecified] Onset: 09-02-2024 Episodic Other screening for suspected conditions (not mental disorders or infectious disease) (4 sources) Patient encounter status; Translations: [Encounter for screening mammogram for malignant neoplasm of breast] Onset: 09-02-2024 08-12-2024 Episodic Other skin disorders (4 sources) Ingrowing nail; Translations: [Ingrowing nail] 07-09-2024 Episodic Residual codes; unclassified (2 sources) Postmenopausal state; Translations: [Asymptomatic menopausal state] 08-12-2024 Episodic Skin and subcutaneous tissue infections (4 sources) Abscess of toe of right foot; Translations: [Cutaneous abscess of right foot] 07-09-2024 Episodic Unclassified (3 sources) CONTACT W/AND (SUSP) EXPOS COVID-19; Translations: [CONTACT W/AND (SUSP) EXPOS COVID-19] Onset: 07-09-2022 Unclassified (1 source) Emotional state finding Onset: 09-02-2024 Viral infection (1 source) COVID-19; Translations: [COVID-19] Onset: 01-11-2022 Past or Other Problems Problem Classification Problem Date Documented Da te Episodic/Chronic Unclassified (1 source) CONTACT W/AND (SUSP) EXPOS COVID-19; Translations: [CONTACT W/AND (SUSP) EXPOS COVID-19] Onset: 06-29-2022 Unclassified (1 source) Patient encounter status 09-02-2024 Results Test Name Value Interpretation Reference Range Facility IGP,APTIMA HPV,AGE GDLNon AGE GDLN ACOG TESTING Note . [facility] Comment on above: TESTS RESULT FLAG UN ITS REF RANGE LAB Clinician Provided Cytology Information Source.............Vagina No. of containers..01 ThinPrep Vial Age Algo ACOG Charo... FLAG LEGEND: L-Low Normal,H-High Normal,LL-Alert Low,HH-Alert High <-Panic Low,>-Panic High,A-Abnormal,AA-Critical Abnormal Performed at: 01 =[address] [address] Elizabeth Rea MD, HPV APTIMA Negative Negative [facility] Comment on above: This nucleic acid am plification test detects fourteen high- risk HPV types (16,18,31,33,35,39,45,51,52,56,58,59,66,68) without differentiation. Performed at: =[address] [id number] Window Glass Installer: Elizabeth Rea MD, Phone: [phone] Performed at: [address] [id number] Window Glass Installer: Elizabeth Rea MD, Phone: [phone] IGP, APTIMA HPV, RFX 16/18,45 Note . [facility] Comment on above: TESTS RESULT FLAG UN ITS REF RANGE LAB DIAGNOSIS: 02 NEGATIVE FOR INTRAEPITHELIAL LESION OR MALIGNANCY. THIS SPECIMEN WAS RESCREENED PART OF OUR WOOLING MACHINE OPERATOR PROGRAM. Specimen adequacy: 02 Satisfactory for evaluation. No endocervical cells are present. This is consistent with a history of hysterectomy. Performed by: Abdon Rodriguez, Cook Chill Technician (ASCP) QC reviewed by: Abdon Starr Cook Chill Technician . 02 Note: Note 02 The Pap [...] <-Panic Low,>-Panic High,A-Abnormal,AA-Critical Abnormal Performed at: [address] [address] Elizabeth Rea MD, [facility] FOR [facility] CO RPon 08-18-2024 PATHOLOGY REQUEST FOR LAB MARLEEN [facility] Comment on above: See report. Scanned copy available in EMR. CYST SPECIMEN [facility] Pathology Request for Lab Co rpon 08-12-2024 Pathology Request for Lab Marleen Normal [facility] Comment on above: Order Comment: CYST SPECIMEN Result Comment: See report. Scanned copy available in EMR. PERFORMED BY: [place] [address] PATHOLOGIST SALES OUTFITTER ALYSA HE M.D. Performed By: #### P ATH TO [facility] #### [address] US Thyroid glandon [address] [place] [address] Ultrasound Report Signed Patient: KATHARINE ARRINGTON MR#: [id number] : 1975 Acct:[id number] Age/Sex: 49 / F ADM Date: 07/22/24 Loc: US Attending Dr: Breanne Perez Ordering Physician: Breanne Perez Date of Service: 07/22/24 Procedure(s): US thyroid Accession Number(s): [id number] cc: Breanne Perez; Physician,Non-Staff M.D. The [address] [address] Patient Name: KATHARINE ARRINGTON MRN: [facility]:[id number] date: 1975 Sex: F Assigned Patient Location: US Current Patient Location: US Accession/Order Number: [id number] Exam Date: 07/22/2024 08:03 Report Date: 07/22/2024 [...] Debbie Nieto M.D.07/22/2024 8:05 AM Dictation Location: [place] [address] Electronically authenticated by: [id number] Y Date: 07/22/2024 08:05 Dictated By: Debbie Nieto M.D. Signed By: 07/22/24806 DD/ 4 TD/TT: Lpta: [facility] Radiology, Radiologist, MD - 07/22/2024 [place] [address] Ultrasound Report Signed Patient: KATHARINE ARRINGTON MR#: [id number] : 1975 Acct:[id number] Age/Sex: 49 / F ADM Date: 07/22/24 Loc: US Attending Dr: Breanne Perez Ordering Physician: Breanne Perez Date of Service: 07/22/24 Procedure(s): US thyroid Accession Number(s): [id number] cc: Breanne Perez; Physician,Non-Staff M.DMargaret The [address] [address] Patient Name: KATHARINE ARRINGTON MRN: [facility]:[id number] date: 1975 Sex: F Assigned Patient Location: US Current Patient Location: US Accession/Order Number: [id number] Exam Date: 07/22/2024 08:03 Report Date: 07/22/2024 [...] Debbie Nieto M.D.07/22/2024 8:05 AM Dictation Location: [place] [address] Electronically authenticated by: [id number] Y Date: 07/22/2024 08:05 Dictated By: Debbie Nieto M.D. Signed By: 07/22/2407 DD/ 4 TD/TT: Lpta: [facility] Radiology Study observation (narrative) [facility] US Thyroid glandOrdered By: Radiologist Radiology on 07-22-2024 [facility] Work Phone: ALL T3 FREEon 07-21-2024 Free T3 [Mass/Vol] 3.45 pg/mL 2.18 - 3. 98 pg/mL [facility] ALL THYROID STIM HORMONEon 0 07-21-2024 TSH Qn 1.573 m[IU]/L [facility] ALL THYROXINE (T4)on 025 T4 [Mass/Vol] 9.1 ug/dL 4.80 - 13.90 ug/dL [facility] No Panel Informationon 07-21 [facility] GLUCOSE BLOODon 07-22-19 25 Glucose [Mass/Vol] 97 mg/dL 74 - 106 mg/dL [place] Healthcare Provider Letteron 05-07-2023 Provider Letter May 07, 2023 KATHARINE ARRINGTON [address] [place] [address] : 1975 Dear Murphy, We have been trying to reach you [...] your prompt attention to this matter. Sincerely, [facility] General Surgery [phone] Normal [facility] Physician Referralon 024 Physician Referral [phone] [id number] Normal [facility] INFLUENZA A AND B AGon 06-29 INFLUBNEGH SEE BELOW Normal [facility] Comment on above: Result Comment: Nega tive for Flu B protein antigen. Infection due to Flu B cannot be ruled out. Flu B antigen in the sample may be below the detection limit of the test. Performed By: #### I NFLUAB #### [facility] [address] [place] [address] Dr. Minoo Mcguire INFLUENZA A AG Positive Abnormal NEGATIVE SEE COMMENT [facility] Comment on above: Performed By: #### I NFLUAB #### [facility] [address] [place] [address] Dr. Minoo Mcguire INFLUENZA B AG Negative Normal NEGATIVE SEE COMMENT [facility] Comment on above: Performed By: #### I NFLUAB #### [facility] [address] [place] [address] Dr. Minoo Mcgurie INFLUPOS SEE BELOW Normal [facility] Comment on above: Result Comment: NOTE : Live attenuated influenzae vaccine viruses can cause a positive result for a rapid influenza diagnostic test if administered up to 7 days prior to rapid testing. Performed By: #### I NFLUAB #### [facility] [address] [place] [address] Dr. Minoo Mcguire SYMPTOMATIC COVID-19 ANTIGEN on 06-29-2022 EUA Statement SEE BELOW Normal The [facility] Comment on above: Result Comment: This [...] sooner. Performed By: #### C VDAGS #### [facility] [address] [place] [address] Dr. Minoo Mcguire SARS-CoV-2 (COVID-19) RNA NARINDER+probe Ql (Unsp spec) Negative Normal NEGATIVE [facility] Comment on above: Performed By: #### C VDAGS #### [facility] [address] [place] [address] Dr. Minoo Mcguire ASYMPTOMATIC COVID-19 ANTIGE Non 01-10-2022 EUA Statement SEE BELOW Normal The [facility] Comment on above: Result Comment: This [...] sooner. Performed By: #### C VDAGA #### [facility] [address] [place] [address] Dr. Minoo Mcguire SARS-CoV-2 (COVID-19) RNA NARINDER+probe Ql (Unsp spec) Negative Normal NEGATIVE [facility] Comment on above: Result Comment: Nega tive results are presumptive. They do not preclude infection and should not be used as the sole basis for treatment decisions. Additional confirmatory testing by a molecular method should be considered. Performed By: #### C VDAGA #### [facility] [id number] Minoo Mcguire Covid-19 PCR ([facility])on SARS-CoV-2 (COVID-19) RNA NARINDER+probe Ql (Unsp spec) Detected Critically abnormal NOT DETECTED [facility] Comment on above: Result Comment: This test is not yet approved or cleared by the [place] FDA. When there are no FDA-approved or cleared tests available, and other criteria are met, FDA can make tests available under an emergency access mechanism called an Emergency Use Authorization (EUA). The EUA for this test is supported by the International Controller of Health and Human Service's declaration that [...] used). Performed By: #### C VDTB #### [facility] [address] [address] [address] Minoo Mcguire SYMPTOMATIC COVID-19 ANTIGEN on 01-08-2022 EUA Statement SEE BELOW Normal The [facility] Comment on above: Result Comment: This [...] sooner. Performed By: #### C VDAGS #### [facility] [address] [place] [address] Dr. Minoo Mcguire SARS-CoV-2 (COVID-19) RNA NARINDER+probe Ql (Unsp spec) Positive Critically abnormal NEGATIVE [facility] Comment on above: Performed By: #### C VDAGS #### [facility] [address] [place] [address] Dr. Minoo Mcguire SYMPTOMATIC COVID-19 ANTIGEN on 01-01-2022 EUA Statement SEE BELOW Normal The [facility] Comment on above: Result Comment: This [...] sooner. Performed By: #### C VDAGS #### [facility] [address] [place], [place] [id number] Dr. Minoo Mcguire SARS-CoV-2 (COVID-19) RNA NARINDER+probe Ql (Unsp spec) Positive Critically abnormal NEGATIVE [facility] Comment on above: Performed By: #### C VDAGS #### [facility] [address] [place], [place] [id number] Dr. Minoo Mcguire Vital Signs Date Time Vital Sign Value Performing Clinician Facility 09-02-2024 14: Body height 162.6 cm Zac DAVIS Work Phone: [facility] 09-02-2024 14:21-0400 Body mass index (BMI) [Ratio] 34.84 kg/m2 Zac Palm UNIVERSITY MANAGER-PIERCING SPECIALIST Work Phone: [facility] 09-02-2024 14:21-0400 Body weight 92.08 kg Zac Palm UNIVERSITY MANAGER-PIERCING SPECIALIST Work Phone: [facility] 09-02-2024 14:21-0400 Diastolic blood pressure 95 mm[Hg] Zac Palm UNIVERSITY MANAGER-PIERCING SPECIALIST Work Phone: [facility] 09-02-2024 14:21-0400 Systolic blood pressure 155 mm[Hg] Zac Palm UNIVERSITY MANAGER-PIERCING SPECIALIST Work Phone: [facility] 08-12-2024 15:36-0400 Body mass index (BMI) [Ratio] 34.64 kg/m2 Fay Kaitlyn PA Work Phone: [facility] 08-12-2024 15:36-0400 Body weight 91.54 kg Fay Kaitlyn PA Work Phone: [facility] 08-12-2024 15:36-0400 Diastolic blood pressure 78 mm[Hg] Fay [place] PA Work Phone: [facility] 08-12-2024 15:36-0400 Systolic blood pressure 116 mm[Hg] Fay Kaitlyn PA Work Phone: [facility] 07-23-2024 09:41-0400 Body height 162.6 cm Tien Chacko DPM Work Phone: [facility] 07-23-2024 09:41-0400 Body mass index (BMI) [Ratio] 35.02 kg/m2 Tien Chacko DPM Work Phone: [facility] 07-23-2024 09:41-0400 Body weight 92.53 kg Tien Chacko DPM Work Phone: [facility] 07-23-2024 09:41-0400 Respiratory rate 18 /min Tien Chacko DPM Work Phone: [facility] 07-20-2024 13:17-0400 Body mass index (BMI) [Ratio] 35.02 kg/m2 Breanne Abbasierly LOOM STOP CHECKER Work Phone: [facility] 07-20-2024 13:17-0400 Body weight 92.53 kg Breanne Abbasierly LOOM STOP CHECKER Work Phone: [facility] 07-20-2024 13:17-0400 Diastolic blood pressure 84 mm[Hg] Breanne Abbasierly LOOM STOP CHECKER Work Phone: [facility] 07-20-2024 13:17-0400 Systolic blood pressure 128 mm[Hg] Breanne Abbasierly LOOM STOP CHECKER Work Phone: [facility] 07-09-2024 14:03-0400 Body height 162.6 cm Tien Chacko DPM Work Phone: [facility] 07-09-2024 14:03-0400 Body mass index (BMI) [Ratio] 34.33 kg/m2 Tien Chacko DPM Work Phone: [facility] 07-09-2024 14:03-0400 Body weight 90.72 kg Tien Chacko DPM Work Phone: [facility] 07-09-2024 14:03-0400 Respiratory rate 18 /min Tien Chacko DPM Work Phone: [facility] Encounters Encounter Date Encounter Type Care Provider Facility Start: 09-02-2024 End: 09-02-2024 Office outpatient new 30 minutes Zac Palm APRN-PIERCING SPECIALIST Work Phone: [facility] Comment on above: Dysphagia, unspecifi ed type (Primary Dx); Encounter for screening colonoscopy Start: 09-02-2024 End: 09-02-2024 ambulatory ZACJORGE PALM [facility] Start: 08-17-2024 End: 08-24-2024 Telephone encounter Zac Palm UNIVERSITY MANAGER-PIERCING SPECIALIST Work Phone: [facility] Start: 08-12-2024 End: 08-12-2024 ambulatory Kishan Guardado Facility:[facility] Start: 08-12-2024 End: 08-12-2024 Departed Referred Kishan Debby DO Work Phone: [facility] Path [facility] Start: 08-12-2024 End: 08-12-2024 Office outpatient visit 15 minutes Fay VALLEJO Work Phone: [facility] Comment on above: Well woman exam with routine gynecological exam; Breast cancer screening by mammogram; Postmenopausal state Start: 08-12-2024 End: 08-12-2024 Patient encounter procedure Fay VALLEJO Work Phone: [facility] Work Phone: Start: 08-12-2024 End: 08-12-2024 ambulatory FAY LEDESMA Not Available Start: 08-12-2024 End: 08-12-2024 Bamboo flowsheet Fay VALLEJO Work Phone: [facility] Start: 08-12-2024 End: 08-18-2024 Bamboo flowsheet Fay VALLEJO Work Phone: [facility] Start: 08-12-2024 End: 08-18-2024 [facility] Result Encounter Fay VALLEJO Work Phone: [facility] Unsolicited Start: 08-12-2024 End: 08-18-2024 External Result Encounter Kishan Hamiltono DO Work Phone: [facility] Unsolicited Start: 07-23-2024 End: 07-23-2024 Bamboo flowsheet Tien Chacko DPM Work Phone: [facility] Start: 07-23-2024 End: 07-23-2024 Bamboo flowsheet Tien Chacko DPM Work Phone: [facility] Start: 07-23-2024 End: 07-23-2024 Office outpatient visit 15 minutes Tien Chacko DPM Work Phone: [facility] Comment on above: Onychocryptosis (Lilian brandon Dx); Toe pain, right; Abscess of toe, right; Onychomycosis; Toe pain, left Start: 07-23-2024 End: 07-23-2024 ambulatory TIEN CHACKO Not Available Start: 07-22-2024 End: 07-22-2024 Clinisync Result Encounter Breanne Perez LOOM STOP CHECKER Work Phone: [facility] External Department Unsolicited Start: 07-22-2024 End: 07-22-2024 [facility]ync Result Encounter Breanne Perez LOOM STOP CHECKER Work Phone: [facility] Unsolicited Start: 07-21-2024 End: 07-21-2024 Clinisync Result Encounter Breanne Chris LOOM STOP CHECKER Work Phone: [facility] Unsolicited Start: 07-21-2024 End: 07-21-2024 [facility]inisync Result Encounter Breanne Chris LOOM STOP CHECKER Work Phone: [facility] External Department Unsolicited Start: 07-20-2024 End: 07-20-2024 Bamboo flowsheet Breanne Chris LOOM STOP CHECKER Work Phone: [facility] Start: 07-20-2024 End: 07-20-2024 Bamboo flowsheet Breanne Chris LOOM STOP CHECKER Work Phone: [facility] Start: 07-20-2024 End: 07-20-2024 Office outpatient visit 15 minutes Breanne Perez LOOM STOP CHECKER Work Phone: [facility] Comment on above: Hormone disorder (Pr imary Dx); Dysphagia, unspecified type; Perimenopausal vasomotor symptoms Start: 07-20-2024 End: 07-20-2024 ambulatory BREANNE CHRIS Not Available Start: 07-09-2024 End: 07-09-2024 Office outpatient new 30 minutes Tien Chacko DPM Work Phone: [facility] Comment on above: Onychocryptosis (Lilian brandon Dx); Toe pain, right; Abscess of toe, right; Onychomycosis; Toe pain, left Start: 07-09-2024 End: 07-09-2024 Bamboo flowsheet Tien Chacko DPM Work Phone: [facility] Start: 07-09-2024 End: 07-09-2024 Bamboo flowsheet Tien Chacko DPM Work Phone: [facility] Start: 07-09-2024 End: 07-09-2024 ambulatory TIEN CHACKO Not Available Start: 04-23-2023 ambulatory Facility: [facility] Start: 06-29-2022 End: 06-29-[address] FAREED CARLOS . Facility: Start: 01-10-2022 End: 01-10-[address] FAREED CARLOS . Facility:[facility] Start: 01-09-2022 End: 01-09-2022 ambulatory BREANNE PEREZ Facility: Start: 01-08-2022 End: 01-08-[address] FAREED CARLOS . Facility: Start: 01-01-2022 End: 01-01-2022 ambulatory BREANNE PEREZ Facility: Procedures Date Procedure Procedure Detail Performing Clinician Start: 08-12-2024 IGP,APTIMA HPV,AGE GDLN Fay VALLEJO Work Phone: Start: 08-12-2024 Microscopic observat ion [Identifier] in Cervix by Cyto stain Zac Palm UNIVERSITY MANAGER-PIERCING SPECIALIST Work Phone: Start: 08-12-2024 PATHOLOGY REQUEST FO R LAB MARLE[facility] Kishanlinette Guardado DO Work Phone: Start: 07-22-2024 Us soft tissue head & neck real time imge docm Breanne Perez LOOM STOP CHECKER Work Phone: Start: 07-21-2024 ALL T3 FREE Breanne del real LOOM STOP CHECKER Work Phone: Start: 07-21-2024 ALL THYROID STIM HORMONE Breanne Perez LOOM STOP CHECKER Work Phone: Start: 07-21-2024 ALL THYROXINE (T4) Andrey Perez LOOM STOP CHECKER Work Phone: Start: 07-21-2024 [facility] GLUCOSE BLOOD Rustam Perez LOOM STOP CHECKER Work Phone: Start: 06-29-2021 Mammography Tien nieves DPM Work Phone: Plan of Treatment Date Care Activity Detail Author Start: 04-23-2033 DTaP,Tdap and Td Vaccines (2 - Td or Tdap) DTaP,Tdap and Td Vaccines (2 - Td or Tdap) [facility] Start: 08-13-2027 Screening for malignant neoplasm of cervix Pap Smear [facility] Start: 09-02-2025 Adult BMI Screening Adult BMI Screening [facility] Start: 09-02-2025 Tobacco Screening Tobacco Screening [facility] Start: 12-07-2024 Influenza vaccination Influenza Vaccine [facility] Start: 08-20-2024 End: 08-20-2024 Patient encounter procedure 08/20/2024 8:30 AM EDT Office Visit [facility] [address] [facility] [address] [place] [address] Tien Chacko DPM [address] [facility] [address] [place] [address] [facility] Start: 08-12-2024 End: 08-12-2024 Patient encounter procedure [facility] Comment on above: Arrived Start: 08-12-2024 End: 08-12-2025 DXA Skeletal system Views for bone density DEXA bone density Imaging Routine Postmenopausal state Expected: 08/12/2024 (Approximate), Expires: 08/12/2025 [facility] Comment on above: Expected: 08/12/2024 (Approximate), Expi res: 08/12/2025 Start: 08-12-2024 End: 10-12-2025 MG Breast - bilateral Screening Bilateral screening mammogram Imaging Routine Breast cancer screening by mammogram Expected: 08/12/2024, Expires: 10/12/2025 [facility] Work Phone: Comment on above: Expected: 08/12/2024, Expires: Start: 08-12-2024 [facility] Start: 07-23-2024 End: 08-22-2024 Alanine aminotransferase [Enzymatic activity/volume] in Serum or Plasma ALANINE AMINOTRANSFERASE Lab Routine Onychomycosis Expected: 07/23/2024 (Approximate), Expires: 08/22/2024 [facility] Healthcare Comment on above: Expected: 07/23/2024 (Approximate), Expi res: 08/22/2024 Start: 07-23-2024 End: 08-22-2024 Aspartate aminotransferase [Enzymatic activity/volume] in Serum or Plasma ASPARTATE AMINO TRANSFERASE Lab Routine Onychomycosis Expected: 07/23/2024 (Approximate), Expires: 08/22/2024 [facility] Work Phone: Comment on above: Expected: 07/23/2024 (Approximate), Expi res: 08/22/2024 Start: 07-23-2024 End: 07-23-2024 Patient encounter procedure [facility] Comment on above: Onychocryptosis (Primary Dx); Toe pain, right; Abscess of toe, right; Onychomycosis; Toe pain, left Start: 07-20-2024 End: 07-20-2025 C-peptide C-peptide Lab Routine Hormone disorder Expected: 07/20/2024 (Approximate), Expires: 07/20/2025 [facility] Healthcare Comment on above: Expected: 07/20/2024 (Approximate), Expi res: 07/20/2025 Start: 07-20-2024 End: 07-20-2025 Cortisol free Cortisol, free Lab Routine Hormone disorder Expected: 07/20/2024 (Approximate), Expires: 07/20/2025 [facility] Comment on above: Expected: 07/20/2024 (Approximate), Expi res: 07/20/2025 Start: 07-20-2024 End: 07-20-2025 Glucose [Mass/volume] in Serum or Plasma Glucose, random Lab Routine Hormone disorder Expected: 07/20/2024 (Approximate), Expires: 07/20/2025 [facility] Comment on above: Expected: 07/20/2024 [...] Office Visit [facility] [address] [facility] [address] [place] [address] Tien Chacko DPM [address] [address] Arrived [facility] Comment on above: Arrived Start: 02-04-2024 Administration of varicella zoster vaccine Zoster (Shingles) Vaccine (1 of 2) [facility] Start: 12-08-2023 COVID-19 Vaccine ( season) COVID-19 Vaccine () [facility] Start: 06-29-2022 Screening for malignant neoplasm of breast Mammogram [facility] Start: 1995 Screening for malignant neoplasm of cervix Pap Smear [facility] Start: 1993 DTaP,Tdap and Td Vaccines (1 - Tdap) DTaP,Tdap and Td Vaccines ( - Tdap) [facility] Start: 02-04-1992 Adult BMI Follow Up Plan Adult BMI Follow Up Plan [facility] Start: 02-04-1992 Adult BMI Screening Adult BMI Screening [facility] Start: 1986 Depression Screening Depression Screening [facility] Start: 1986 Tobacco Screening Tobacco Screening [facility] Start: 1974 Screening for malignant neoplasm of colon [facility] Start: 1974 Tobacco Counseling Tobacco Counseling [facility] End: 09-02-2025 Colonoscopy Colonoscopy GI Routine Encounter for screening colonoscopy 1 Occurrences starting 09/02/2024 until 09/02/2025 [facility] Comment on above: 1 Occurrences starting 09/02/2024 until 09/02/2025 DHEA-sulfate DHEA-sulfate Lab Routine Hormone disorder Ordered: 07/20/2024 [facility] Comment on above: Ordered: 07/20/2024 End: 09-02-2025 Esophagogastroduodenoscopy EGD GI Routine Dysphagia, unspecified type 1 Occurrences starting 09/02/2024 until 09/02/2025 [facility] Work Phone: Comment on above: 1 Occurrences starting 09/02/2024 until 09/02/2025 Estradiol Estradiol Lab Ro utine Hormone disorder Ordered: 07/20/2024 [facility] Work Phone: Comment on above: Ordered: 07/20/2024 Estrone Estrone Lab Rout ine Hormone disorder Ordered: 07/20/2024 [facility] Comment on above: Ordered: 07/20/2024 Ferritin [Mass/volum e] in Serum or Plasma Ferritin Lab Routine Hormone disorder Ordered: 07/20/2024 [facility] Comment on above: Ordered: 07/20/2024 Progesterone Progesterone Lab Routine Hormone disorder Ordered: 07/20/2024 [facility] Comment on above: Ordered: 07/20/2024 Sex hormone binding globulin Sex hormone binding globulin Lab Routine Hormone disorder Ordered: 07/20/2024 [facility] Comment on above: Ordered: 07/20/2024 T3, reverse T3, reverse Lab Routine Hormone disorder Ordered: 07/20/2024 [facility] Comment on above: Ordered: 07/20/2024 TESTOSTERONE, FREE TESTOSTERONE, FREE Lab Routine Hormone disorder Ordered: 07/20/2024 [facility] Comment on above: Ordered: 07/20/2024 Testosterone, free, total Testos terone, free, total Lab Routine Hormone disorder Ordered: 07/20/2024 [facility] Comment on above: Ordered: 07/20/2024 THIN PREP TIS PAP AND HR HPV DNA THIN PREP TIS PAP AND HR HPV DNA Pathology and Cytology Routine Well woman exam with routine gynecological exam Ordered: 08/12/2024 [facility] Comment on above: Ordered: 08/12/2024 Thyroid peroxidase antibody Thyr oid peroxidase antibody Lab Routine Hormone disorder Ordered: 07/20/2024 [facility] Comment on above: Ordered: 07/20/2024 Thyroxine (T4) free [Mass/volume] in Serum or Plasma T4, free Lab Routine Hormone disorder Ordered: 07/20/2024 [facility] Comment on above: Ordered: 07/20/2024 Triiodothyronine (T3 ) Free [Mass/volume] in Serum or Plasma T3, free Lab Routine Hormone disorder Ordered: 07/20/2024 [facility] Comment on above: Ordered: 07/20/2024 Immunizations Immunization Date Immunization Notes Care Provider Fa gisele 01-28-2024 influenza virus vaccine, unspecified formulation Zac Palm APRN-PIERCING SPECIALIST [facility] Payers Date Payer Category Payer Self-pay 2022 [facility] Blue Shield BCBS Memb er Subscriber Plan / Payer (Effective 2022-Present) Name: Katharine Arrington Member ID: [id number] Relation to Subscriber: Self Name: Katharine Arrington Subscriber ID: [id number] Payer ID: Not on file Type: Not on file Address: [address] [place] [address] [id number] 2022 [employer] Blue Shie ld Managed Care - PPO ANTHEM Member Subscriber Plan / Payer (Effective 2022-Present) Name: Katharine Arrington Member ID: [id number] Relation to Subscriber: Self Name: Katharine Arrington Subscriber ID: [id number] Payer ID: [id number] ([facility]) Type: Not on file Address: [address] [place] [id number] 2022 Unknown [id number] 2019 Unknown [id number] 1974 Unknown [id number]. 593 1974 Unknown [id number] [id number]. 593 1974 Unknown [id number] [id number]. 593 1974 Unknown [id number]. 593 1974 Unknown [id number]. 593 1974 Unknown [id number] [id number]. 1259 1974 Unknown [id number] [id number]. 1259 1974 Unknown [id number] [id number]. 1259 1974 Unknown [id number] [id number]. 1259 1974 Unknown [id number]. 1286 Social History Date Type Detail Facility Start: 11-26-2022 End: 09-02-2024 Tobacco smoking status DEIS Smokes tobacco daily [facility] History of tobacco use Cigarette Smoker [facility] Start: 07-25-2023 End: 08-12-2024 Alcoholic beverage intake Current drinker of alcohol (finding) [facility] Start: 04-28-2020 End: 07-25-2023 History of Social function [facility] Start: 04-28-2020 End: 07-25-2023 Tobacco use panel [facility] Start: 11-26-2022 Alcohol Comment 2-4x a month i n the past year [facility] Start: 1975 Sex assigned at Not on file N [facility] Tobacco smoking stat us DEIS Unknown if ever smoked [facility] Start: 11-11-2014 End: 08-14-2024 Sex Female (finding) [facility] Start: 1975 Sex Assigned At Female F [facility] Childcare Unknown [facility] Start: 09-02-2024 Tobacco use and exposure Smokeless tobacco non-user [facility] Start: 09-02-2024 Alcoholic beverage intake Lifetime non-drinker (finding) [facility] Clinical Notes 07-09-2024 to 09-02-2024 Zac Palm APRN-JOE - 09/02/2024 2:30 PM EDTTelephone Encounter - Zenaida Antunez - 08/17/2024 11:31 AM EDTTelephone Encounter - Zenaida Antunez - 08/17/2024 11:31 AM EDT Note Date & Type Note Facility 09-02-2024 History of Presen t illness Narrative Images from the original note were not included. Chief Complaint: Dysphagia History of Present Illness Katharine Arrington is a 49 y.o. female who presents to the office for intermittent dysphagia. Symptoms occur a few times weekly. She feels like food gets caught in the back of her throat. Sometimes she can get it down with water and sometimes she can not. Usually occurs with foods such as bread and rice. She denies nausea, vomiting and heartburn. She is a smoker. She admits to drinking an increased amount of caffeine. 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 Evaluation included: Preparing to see the patient (e.g., review of tests) Obtaining and/or reviewing separately obtained history Performing a medically appropriate examination and/or evaluation Counseling and educating the patient/family/caregiver Referring and communicating with other health critical care specialist Dysphagia, unspecified type [R13.10] RYAN ROSALES [facility] This note was created with the assistance of a speech recognition program. While intending to generate a timely document that accurately reflects the content of the visit, no guarantee can be provided that every grammatical or spelling mistake has been or will be identified or corrected. Thank you for your understanding. RYAN Rosales 09/02/24 1458 documented in this encounter [facility] 08-17-2024 Miscellaneous Notes Formattin g of this note might be different from the original. Called Katharine regarding the trouble swallowing referral that our office received from Dr Guardado, left a message on voicemail to call the office back to schedule an appointment. Called Katharine regarding the referral that our office received, left a message on voicemail to call the office back to schedule an appointment. Called Katharine regarding the referral that our office received, left a message on voicemail to call the office back to schedule an appointment. documented in this encounter [facility] 08-17-2024 Telephone encount er Note Called Katharine regarding the trouble swallowing referral that our office received from Dr Guardado, left a message on voicemail to call the office back to schedule an appointment. [facility] 08-17-2024 Telephone encount er Note Called Katharine regarding the referral that our office received, left a message on voicemail to call the office back to schedule an appointment. [facility] 08-17-2024 Telephone encount er Note Called Katharine regarding the referral that our office received, left a message on voicemail to call the office back to schedule an appointment. [facility] 08-12-2024 History of Presen t illness Narrative Images from the original note were not included. Reason for Appointment: Patient ID: Katharine Arrington is a 49 y.o. female who presents for Well Women Visit Patient presents today for Annual Exam. MEDICATIONS Current Outpatient Medications Medication Instructions terbinafine (LAMISIL) 250 mg, Oral, Daily venlafaxine XR (EFFEXOR XR) 37.5 mg, Oral, Daily, Do not crush or chew. ALLERGIES Allergies Allergen Reactions Metronidazole Other neuro Other Reaction(s): Lymphoreticular Cancer, Mental Status Change, Unknown PROBLEMS Active Ambulatory Problems Diagnosis Date Noted [...] Review of Systems: Review of Systems Constitutional: Negative. HENT: Negative. Eyes: Negative. Respiratory: Negative. Cardiovascular: Negative. Gastrointestinal: Negative. Genitourinary: Negative. Musculoskeletal: Negative. Skin: Negative. Reports cyst at mid labia minora. Reports that this is itchy and not painful Neurological: Negative. All other systems reviewed and are negative. Hematological: Negative. Endocrine: Negative. Allergic/Immunologic: Negative. OBJECTIVE Objective: Physical Exam Constitutional: Appearance: Normal appearance. She is well-developed. Genitourinary: Vulva normal. Genitourinary Comments: 2 x 2 mm cyst; punch biopsy sent. Breasts: Breasts are soft. Right: Normal. Left: Normal. Cardiovascular: Rate and Rhythm: Normal rate and [...] nursing note reviewed. Exam conducted with a bean sprout grower present. Vitals: Estimated body mass index is 34.64 kg/m as calculated from the following: Height as of 07/23/24: 5' 4 . Weight as of this encounter: 201 lb 12.8 oz. BP: 116/78 No LMP recorded. Patient has had a hysterectomy. ASSESSMENT & PLAN Annual Exam: Patient presents today for an annual exam. Patient states she is doing well and has no complaints. Pap was obtained without difficulty. Orders Placed This Encounter Procedures Bilateral screening mammogram DEXA bone density Follow Up: Patient with complaints of cyst to midline labia minora. Cyst measures 2mm x 2mm non mobile non tender but complaints of pruritus, no drainage and no erythema. Area is cleansed and anesthestized with 1 % lidocaine a punch biopsy was obtained. Reviewed labs and thyroid ultrasound with patient. She continues to report difficulty with swallowing and does not have a PCP she reports no history of reflux symptoms. We will refer her to general surgery for possible EGD. Patient is to return in one year for annual unless needed otherwise. Documented by Breanne Perez NP on behalf of: Breanne Perez NP documented in this encounter [facility] 07-23-2024 History of Presen t illness Narrative [...] Tien Chacko DPM documented in this encounter [facility] 07-20-2024 History of Presen t illness Narrative [...] nursing note reviewed. Exam conducted with a bean sprout grower present. Vitals: Estimated body mass index is [...] Breanne Perez NP documented in this encounter [facility] 07-09-2024 History of Presen t illness Narrative [...] Tien Chacko DPM documented in this encounter [facility] Evaluation note Diagnosis Onychocryptosis- Primary Ingrowing nail Toe pain, right Pain in soft tissues of limb Abscess of toe, right Onychomycosis Dermatophytosis of nail Toe pain, left Pain in soft tissues of limb [facility]* Diagnosis Hormone disorder- Primary Unspecified endocrine disorder Dysphagia, unspecified type Perimenopausal vasomotor symptoms Onychocryptosis- Primary Ingrowing nail Toe pain, right Pain in soft tissues of limb Abscess of toe, right Onychomycosis Dermatophytosis of nail Toe pain, left Pain in soft tissues of limb [facility]* Diagnosis Onychocryptosis- Primary Ingrowing nail Toe pain, right Pain in soft tissues of limb Abscess of toe, right Onychomycosis Dermatophytosis of nail Toe pain, left Pain in soft tissues of limb [facility]* Diagnosis Well woman exam with routine gynecological exam Routine gynecological examination Breast cancer screening by mammogram Postmenopausal state Asymptomatic postmenopausal status (age-related) (natural) Onychomycosis- Primary Dermatophytosis of nail Toe pain, left Pain in soft tissues of limb Toe pain, right Pain in soft tissues of limb [facility] noteNo assessment information availableAdena [facility] Work Phone: Evaluation note* Diagnosis Dysphagia, unspecified type- Primary Encounter for screening colonoscopy [facility] filed[facility]ed in this [facility] on filedocumented in this encounter [facility] Summary Purpose Family History No Family History [...] DATE CREATED AUTHOR AUTHOR'S ORGANIZ ATION 05/08/2023 [facility] DATE CREATED AUTHOR AUTHOR'S ORGANIZ ATION 08/15/[address] [facility] EPIC DATE CREATED AUTHOR AUTHOR'S ORGANIZ ATION 08/19/2024 [facility] DATE CREATED AUTHOR AUTHOR'S ORGANIZ ATION 09/05/2024 [facility] Care Teams (unrecognized sec tion and content) Media Developer Relationship Specialty Start Date End Date Case Moe MD [address] [facility] [address] [place] [address] PCP - General Internal Medicine 08/14/22 Media Developer Relationship Specialty Start Date End Date Case Moe MD [address] [facility] [address] [place] [address] PCP - General Internal Medicine 08/14/22 Media Developer Relationship Specialty Start Date End Date Case Moe MD [address] [facility] [address] [place] [address] PCP - General Internal Medicine 08/14/22 Media Developer Relationship Specialty Start Date End Date Case Moe MD [address] [facility] [address] [place] [address] PCP - General Internal Medicine 08/14/22 Media Developer Relationship Specialty Start Date End Date Case Moe MD [address] [facility] [address] [place] [address] PCP - General Internal Medicine 08/14/22 Media Developer Relationship Specialty Start Date End Date Case Moe MD [address] [facility] [address] [place] [address] PCP - General Internal Medicine 08/14/22 Media Developer Relationship Specialty Start Date End Date Case Moe MD [address] [facility] [address] [place] [address] PCP - General Internal Medicine 08/14/22 Media Developer Relationship Specialty Start Date End Date Case Moe MD [address] [facility] [address] [place] [address] PCP - General Internal Medicine 08/14/22 Team Status: Inactive Member Role Status Dates Kishan Guardado DO Attending Provider Active Start : August 12, 2024 End: August 12, 2024 Media Developer Relationship Specialty Start Date End Date Fareed Carlos MD [address] [place] [facility] [place] [address] PCP - General Family Medicine 08/17/24 Media Developer Relationship Specialty Start Date End Date Fareed Carlos MD [address] [place] [address] PCP - General Family Medicine 08/17/24 Reason for Visit (unrecogniz ed section and content) Reason Comments Ingrown Toenail Bl gt ingrown Reason Comments Menopause Reason Comments Follow-up 14d s/p avulsion/ la misil Reason Comments Well Women Visit Reason Comments Difficulty Swallowing TROUBLE SWALLOWING , REFERRED BY DR RAMIREZEDS COLONOSCOPY Goals (unrecognized section and content) Goals may be documented in a n alternate sectionNot on filedocumented as of this encounterNot on filedocumented as of this encounter FOR RECORDS PERTAINING TO PATIENTS WHO ARE [...] BE BASED ON THE PRIMARY CLINICAL RECORDS. [facility] [facility]. provides no warranty or guarantee of the accuracy or completeness of information in this document.
== END 2024-09-07 08:28 | disposition home or self-care (01) ==
LOC: RAD 08:27
PROVIDERS: Visit Provider Physician Assistant
DX: Z12.31 Encounter for screening mammogram for malignant neoplasm of breast (principal); Z78.0 Asymptomatic menopausal state; Z80.3 Family history of malignant neoplasm of breast; Z80.1 Family history of malignant neoplasm of trachea, bronchus and lung; R92.8 Other abnormal and inconclusive findings on diagnostic imaging of breast; M85.80 Other specified disorders of bone density and structure, unspecified site
CPT/HCPCS: 77063; 77067; 77080

== ENCOUNTER 2024-09-19 11:06 | Outpatient (OUT) | payer BC, SELFPAY ==
--- NOTE | 2024-09-19 | XR_ITS ---
[address] [address] Patient Name: JOSIAH HANSEN MRN: [id number] date: 1975 Sex: F Assigned Patient Location: [facility] Current Patient Location: [facility] Accession/Order Number: [id number] Exam Date: 09/19/2024 12:38 Report Date: 09/19/2024 12:40 At the request of: MARYJO HARDIN Procedure: XR foot LT min 3V 3 views left foot plain film COMPARISON:None HISTORY: left foot pain ACUTE FINDINGS: None DEGENERATIVE CHANGE: Posterior calcaneal spurring SOFT TISSUE FINDINGS: Unremarkable JOINT EFFUSION: None POSTOP CHANGES: None BONE MINERALIZATION: Adequate XR/XR foot LT min 3V IMPRESSION: Posterior calcaneal spurring Impression dictated by: Ace Santana M.D. 09/19/2024 12:40 PM Dictation Location: [place] [address] Electronically authenticated by: [id number] Date: 09/19/2024 12:40
--- OUTSIDE RECORDS SUMMARY | 2024-09-19 11:10 | XMS_ITS | CCD ---
Author Organization [facility] Care Team Providers Care Barrel Dedenting Machine Operator Name Role Phone BREANNE PEREZ Admitting Unavailable HOY ., DR GUERRIER Primary [...] Unavailable Case Moe MD Primary Care Provider Luis Guardado Attending Unavailable Luis Guardado Admitting Unavailable Luis Guardado DO Attending Provider [phone] Fareed Carlos MD Primary Care Provider [phone] ZAC PALM Attending Unavailable FAREED CARLOS Referring Unavailable FAREED CARLOS Primary Care Unavailable TIEN CHACKO Attending Unavailable BREANNE PEREZ Attending Unavailable TIEN CHACKO Attending Unavailable FAY LEDESMA Attending Unavailable LUIS GUARDADO Attending Unavailable Allergies Allergy Classification Reported Allergen(s) Allergy Type Date of Onset Reaction(s) Facility (1 source) [facility] Drug Allergy 4 [facility] Repository (20 sources) metroNIDAZOLE; Translations: [METRONIDAZOLE] Drug Allergy 08-29-201 3 Other, Other (See Comments) [facility] Healthcare Work Phone: Medications Current Medications Medication Drug Class(es) Dates Sig (Normalized) Sig (Original) omeprazole 20 mg delayed release oral capsule (1 source) Proton Pump Inhibitor Start: 09-02-2024 take 1 capsule by mouth in the morning omeprazole (PriLOSEC) 20 mg capsule Indications: Dysphagia, unspecified type Take 1 capsule (20 mg total) by mouth in the morning. 30 capsule 1 09/02/2024 Active peg 3350-sod sulf,rtuh-dem-vde 178.7-7.3-0.5 gram recon soln (1 source) Start: 09-02-2024 End: 09-03-2024 peg 3350-sod sulf,hfsv-mxx-cnw 178.7-7.3-0.5 gram recon soln Indications: Encounter for [...] venlafaxine 37.5 mg extended release oral capsule (16 sources) Serotonin and Norepinephrine Reuptake Inhibitor Start: 07-20-2024 End: 07-20-2025 take 1 capsule by mouth once daily venlafaxine XR (Effexor XR) 37.5 MG 24 hr capsule Indications: Perimenopausal vasomotor symptoms Take 1 capsule (37.5 mg) by mouth Daily Do not crush or chew. 30 capsule 5 07/20/2024 07/20/2025 Active Start: 07-20-2024 End: 07-20-2025 take 1 capsule by mouth every twenty-four hours in the morning venlafaxine XR (EFFEXOR XR) 37.5 mg 24 hr capsule Take 1 capsule (37.5 mg total) by mouth in the morning. 07/20/2024 07/20/2025 Active Completed/Discontinued Medications Medication Drug [...] conditions (not mental disorders or infectious disease) (8 sources) Patient encounter status; Translations: [Encounter for [...] Test Name Value Interpretation Reference Range Facility MM TOMOSYNTHESIS SCREENING B Ion 09-07-2024 [place] [address] Mammography Report Signed Patient: KATHARINE ARRINGTON MR#: [id number] : 1975 Acct:[id number] Age/Sex: 49 / F ADM Date: 09/07/24 Loc: RAD Attending Dr: Fay Ledesma Ordering Physician: Fay Ledesma Results: Date of Service: 09/07/24 Follow Up: Procedure(s): MM tomosynthesis screening BI Accession Number(s): [id number] cc: Fay Ledesma; Physician,Non-Staff M.D. Patient Name: KATHARINE ARRINGTON MR#: [id number] : 1975 Exam Date: 09/07/2024 Ordering Doctor: YONI LEDESMA . RADIOLOGY REPORT PROCEDURE: MM TOMOSYNTHESIS SCREENING BI COMPARISON: MM TOMOSYNTHESIS DIAGNOSTIC LT, 08/05/2023. MM TOMOSYNTHESIS SCREENING BI, 04/25/2023. MAMMO MARGY SCREEN, 06/29/2021. MG MAMM MARGY SCRN W CAD DIG, 03/10/2013. INDICATIONS: Screening Calculator Name NCI Breast Cancer Risk Assessment Tool 5 Year Breast Cancer Risk 0.60% Lifetime Breast Cancer Risk 6.00% Personal Breast Cancer No Personal Ovarian Cancer No Treatments None Family Cancers Grandmother-paternal with breast cancer at age 70; Uncle-maternal with lung cancer at age 72. LOCATION: [facility] BREAST COMPOSITION: The breasts are heterogeneously dense,which may obscure small masses. FINDINGS: LEFT BREAST: No significant suspicious finding. Previous focal asymmetries in the left breast are smaller and or resolved appeared benign-appearing lymph nodes are noted along the chest wall. RIGHT BREAST: No significant suspicious finding. There is a new 5 mm focal asymmetry of the right breast superiorly and laterally in the middle depth at approximately the 9 to 10 o'clock position 4.5 cm from the nipple. DIAGNOSTIC CATEGORY 0--INCOMPLETE: NEED ADDITIONAL IMAGING EVALUATION. RECOMMENDATIONS: ADDITIONAL MAMMOGRAPHIC VIEWS REQUIRED: RIGHT BREAST - spot compressed images of the right breast with ultrasound if necessary appeared ULTRASOUND: RIGHT BREAST PLEASE NOTE: A NORMAL MAMMOGRAM DOES NOT EXCLUDE THE POSSIBILITY OF BREAST CANCER. A CLINICALLY SUSPICIOUS PALPABLE LUMP SHOULD BE BIOPSIED. Dictated by: Parish Carlton MD on 09/07/2024 at 15:54 Approved by: Parish Carlton MD on 09/07/2024 at 16:01 Dictated By: Parish Carlton M.D. Signed By: 09/07/24 1602 DD/ 1601 TD/TT: Senior Search Marketing Analyst: [facility] Radiology, Radiologist, - 09/07/2024 [place] [address] Mammography Report Signed Patient: KATHARINE ARRINGTON MR#: [id number] : 1975 Acct:[id number] Age/Sex: 49 / F ADM Date: 09/07/24 Loc: RAD Attending Dr: Fay Ledesma Ordering Physician: Fay Ledesma Results: Date of Service: 09/07/24 Follow Up: Procedure(s): MM tomosynthesis screening BI Accession Number(s): [id number] cc: Fay Ledesma; Physician,Non-Staff Kelvin Patient Name: KATHARINE ARRINGTON MR#: [id number] : 1975 Exam Date: 09/07/2024 Ordering Doctor: YONI LEDESMA . RADIOLOGY REPORT PROCEDURE: MM TOMOSYNTHESIS SCREENING BI COMPARISON: MM TOMOSYNTHESIS DIAGNOSTIC LT, 08/05/2023. MM TOMOSYNTHESIS SCREENING BI, 04/25/2023. MAMMO MARGY SCREEN, 06/29/2021. MG MAMM MARGY SCRN W CAD DIG, 03/10/2013. INDICATIONS: Screening Calculator Name NCI Breast Cancer Risk Assessment Tool 5 Year Breast Cancer Risk 0.60% Lifetime Breast Cancer Risk 6.00% Personal Breast Cancer No Personal Ovarian Cancer No Treatments None Family Cancers Grandmother-paternal with breast cancer at age 70; Uncle-maternal with lung cancer at age 72. LOCATION: [facility] BREAST COMPOSITION: The breasts are heterogeneously dense,which may obscure small masses. FINDINGS: LEFT BREAST: No significant suspicious finding. Previous focal asymmetries in the left breast are smaller and or resolved appeared benign-appearing lymph nodes are noted along the chest wall. RIGHT BREAST: No significant suspicious finding. There is a new 5 mm focal asymmetry of the right breast superiorly and laterally in the middle depth at approximately the 9 to 10 o'clock position 4.5 cm from the nipple. DIAGNOSTIC CATEGORY 0--INCOMPLETE: NEED ADDITIONAL IMAGING EVALUATION. RECOMMENDATIONS: ADDITIONAL MAMMOGRAPHIC VIEWS REQUIRED: RIGHT BREAST - spot compressed images of the right breast with ultrasound if necessary appeared ULTRASOUND: RIGHT BREAST PLEASE NOTE: A NORMAL MAMMOGRAM DOES NOT EXCLUDE THE POSSIBILITY OF BREAST CANCER. A CLINICALLY SUSPICIOUS PALPABLE LUMP SHOULD BE BIOPSIED. Dictated by: Parish Carlton MD on 09/07/2024 at 15:54 Approved by: Parish Carlton MD on 09/07/2024 at 16:01 Dictated By: Parish Carlton M.D. Signed By: 09/07/24 1602 DD/ 1601 TD/TT: Senior Search Marketing Analyst: [facility] Radiology Study observation (narrative) [facility] MM TOMOSYNTHESIS SCREENING B IOrdered By: Radiologist Radiology on 09-07-2024 [facility] Work Phone: IGP,APTIMA HPV,AGE GDLNon AGE GDLN ACOG TESTING Note . [facility] Comment on above: TESTS RESULT FLAG UN ITS REF RANGE LAB Clinician Provided Cytology Information Source.............Vagina No. of containers..01 ThinPrep Vial Age Benjamin VOGEL Charo... 30 FLAG LEGEND: L-Low Normal,H-High Normal,LL-Alert Low,HH-Alert High <-Panic Low,>-Panic High,A-Abnormal,AA-Critical Abnormal Performed at: 01 =G [address] [place] [address] Elizabeth Rea MD, HPV APTIMA Negative Negative [facility] Comment on above: This nucleic acid am plification test detects fourteen high- risk HPV types (16,18,31,33,35,39,45,51,52,56,58,59,66,68) without differentiation. Performed at: =G - Lab[address] [id number] Gate Person: Elizabeth Rea MD, Phone: [phone] Performed at: - [address] [id number] Gate Person: Elizabeth Rea MD, Phone: [phone] IGP, APTIMA HPV, RFX 16/18,45 Note . [facility] Comment on above: TESTS RESULT FLAG UN ITS REF RANGE LAB DIAGNOSIS: 02 NEGATIVE FOR INTRAEPITHELIAL LESION OR MALIGNANCY. THIS SPECIMEN WAS RESCREENED PART OF OUR SCANNING SUPERVISOR PROGRAM. Specimen adequacy: 02 Satisfactory for evaluation. No endocervical cells are present. This is consistent with a history of hysterectomy. Performed by: 02 Lazarus Rodriguez, Hydroelectric Plant Structural Engineer (ASCP) QC reviewed by: 02 Giovanna Starr Hydroelectric Plant Structural Engineer . 02 Note: Note 02 The Pap [...] Low,>-Panic High,A-Abnormal,AA-Critical Abnormal Performed at: [address] [place] [address] Elizabeth Rea MD, SPATULA-ALONE VAGINA [facility] PATHOLOGY REQUEST FOR LAB CO RPon 08-18-2024 PATHOLOGY REQUEST FOR LAB [facility] Comment on above: See report. Scanned copy available in EMR. CYST SPECIMEN [facility] Pathology Request for Lab Co rpon 08-12-2024 Pathology Request for Lab Marleen Normal [facility] Comment on above: Order Comment: CYST SPECIMEN Result Comment: See report. Scanned copy available in EMR. PERFORMED BY: [place] [address] PATHOLOGIST AUTHORIZATION MANAGER ALYSA HE M.D. Performed By: #### P ATH TO [facility] #### [place] [id number] [facility] [place] [address] Ultrasound Report Signed Patient: KATHARINE ARRINGTON MR#: [id number] : 1975 Acct:[id number] Age/Sex: 49 / F ADM Date: 07/22/24 Loc: US Attending Dr: Breanne Perez Ordering Physician: Breanne Perez Date of Service: 07/22/24 Procedure(s): US thyroid Accession Number(s): [id number] cc: Breanne Perez; Physician,Non-Staff M.Elizabeth [facility] [place] [id number] Patient Name: KATHARINE ARRINGTON MRN: [id number] date: 1975 Sex: F Assigned Patient Location: US Current Patient Location: US Accession/Order Number: [id number] Exam Date: 07/22/2024 08:03 Report Date: 07/22/2024 [...] Debbie Nieto M.D.07/22/2024 8:05 AM Dictation Location: [place] [address] Electronically authenticated by: [id number] Y Date: 07/22/2024 08:05 Dictated By: Debbie Nieto M.D. Signed By: 07/22/24806 DD/ 4 TD/TT: Senior Search Marketing Analyst: [facility] Radiology, Radiologist, - 07/22/2024 [place] [address] Ultrasound Report Signed Patient: KATHARINE ARRINGTON MR#: [id number] : 1975 Acct:[id number] Age/Sex: 49 / F ADM Date: 07/22/24 Loc: US Attending Dr: Breanne Perez Ordering Physician: Breanne Perez Date of Service: 07/22/24 Procedure(s): US thyroid Accession Number(s): [id number] cc: Breanne Perez; Physician,Non-Staff M.D. [facility] [place] [id number] Patient Name: KATHARINE ARRINGTON MRN: [facility]:[id number] date: 1975 Sex: F Assigned Patient Location: US Current Patient Location: US Accession/Order Number: [id number] Exam Date: 07/22/2024 08:03 Report Date: 07/22/2024 [...] Debbie Nieto M.D.07/22/2024 8:05 AM Dictation Location: [place] [address] Electronically authenticated by: [id number] Y Date: 07/22/2024 08:05 Dictated By: Debbie Nieto M.D. Signed By: 07/22/24806 DD/ 4 TD/TT: Senior Search Marketing Analyst: [facility] Radiology Study observation (narrative) [facility] US Thyroid glandOrdered By: Radiologist Radiology on 07-22-2024 [facility] Work Phone: ALL T3 FREEon 07-21-2024 Free T3 [Mass/Vol] 3.45 pg/mL 2.18 - 3. 98 pg/mL [facility] ALL THYROID STIM HORMONEon 0 07-21-2024 TSH Qn 1.573 m[IU]/L [facility] ALL THYROXINE (T4)on 025 T4 [Mass/Vol] 9.1 ug/dL 4.80 - 13.90 ug/dL [facility] No Panel Informationon 07-21 [facility] GLUCOSE BLOODon 07-22-19 25 Glucose [Mass/Vol] 97 mg/dL 74 - 106 mg/dL NO [facility] Provider Letteron 05-07-2023 Provider Letter May 07, 2023 KATHARINE ARRINGTON [address] [place] [address] : 1975 Dear Ms. Arrington, We have [...] your prompt attention to this matter. Sincerely, [facility] General Surgery [phone] Normal [facility] Physician Referralon 024 Physician Referral [phone] [id number] #[id number] Normal [facility] INFLUENZA A AND B AGon 06-29 INFLUBNEGH SEE BELOW Normal [facility] Comment on above: Result Comment: Nega tive for Flu B protein antigen. Infection due to Flu B cannot be ruled out. Flu B antigen in the sample may be below the detection limit of the test. Performed By: #### I NFLUAB #### [facility] [address] [place] [address] Dr. Minoo Mcguire INFLUENZA A AG Positive Abnormal NEGATIVE SEE COMMENT [facility] Comment on above: Performed By: #### I NFLUAB #### [facility] [address] [place] [address] Dr. Minoo Mcguire INFLUENZA B AG Negative Normal NEGATIVE SEE COMMENT [facility] Comment on above: Performed By: #### I NFLUAB #### [facility] [address] [place] [address] [address] Minoo Mcguire INFLUPOSH SEE BELOW Normal [facility] Comment on above: Result Comment: NOTE : Live attenuated influenzae vaccine viruses can cause a positive result for a rapid influenza diagnostic test if administered up to 7 days prior to rapid testing. Performed By: #### I NFLUAB #### [facility] [address] [place] [address] Dr. Minoo Mcguire SYMPTOMATIC COVID-19 ANTIGEN on 06-29-2022 EUA Statement SEE BELOW Normal [facility] Comment on above: Result Comment: This [...] sooner. Performed By: #### C VDAGS #### [facility] [address] [place] [address] Dr. Minoo Mcguire SARS-CoV-2 (COVID-19) RNA NARINDER+probe Ql (Unsp spec) Negative Normal NEGATIVE [facility] Comment on above: Performed By: #### C VDAGS #### [facility] [address] [place] [address] Dr. Minoo Mcguire ASYMPTOMATIC COVID-19 ANTIGE Non 01-10-2022 EUA Statement SEE BELOW Normal [facility] Comment on above: Result Comment: This [...] sooner. Performed By: #### C VDAGA #### [facility] [address] [place] [address] Dr. Minoo Mcguire SARS-CoV-2 (COVID-19) RNA NARINDER+probe Ql (Unsp spec) Negative Normal NEGATIVE [facility] Comment on above: Result Comment: Nega tive results are presumptive. They do not preclude infection and should not be used as the sole basis for treatment decisions. Additional confirmatory testing by a molecular method should be considered. Performed By: #### C VDAGA #### [facility] [address] [place] [address] Dr. Minoo Mcguire Covid-19 PCR (CVDTB)on SARS-CoV-2 (COVID-19) RNA NARINDER+probe Ql (Unsp spec) Detected Critically abnormal NOT DETECTED [facility] Comment on above: Result Comment: This test is not yet approved or cleared by the [place] FDA. When there are no FDA-approved or cleared tests available, and other criteria are met, FDA can make tests available under an emergency access mechanism called an Emergency Use Authorization (EUA). The EUA for this test is supported by the [place] of Health and Human Service's declaration that [...] used). Performed By: #### C VDTB #### [facility] [address] [place] [address] Dr. Minoo Mcguire SYMPTOMATIC COVID-19 ANTIGEN on 01-08-2022 EUA Statement SEE BELOW Normal [facility] Comment on above: Result Comment: This [...] sooner. Performed By: #### C VDAGS #### [facility] [address] [place] [address] Dr. Minoo Mcguire SARS-CoV-2 (COVID-19) RNA NARINDER+probe Ql (Unsp spec) Positive Critically abnormal NEGATIVE [facility] Comment on above: Performed By: #### C VDAGS #### [facility] [address] [place] [address] Dr. Minoo Mcguire SYMPTOMATIC COVID-19 ANTIGEN on 01-01-2022 EUA Statement SEE BELOW Normal [facility] Comment on above: Result Comment: This [...] sooner. Performed By: #### C VDAGS #### [facility] [address] [place] [address] Dr. Minoo Mcguire SARS-CoV-2 (COVID-19) RNA NARINDER+probe Ql (Unsp spec) Positive Critically abnormal NEGATIVE [facility] Comment on above: Performed By: #### C VDAGS #### [facility] [address] [place] [address] [address] Minoo Mcguire Vital Signs Date Time Vital Sign Value Performing Clinician Facility 09-02-2024 14:21-0400 Body height 162.6 cm Zac Yatesoll OFFICE AUTOMATION TECHNICIAN-CRNP Work Phone: [facility] 09-02-2024 14:21-0400 Body mass index (BMI) [Ratio] 34.84 kg/m2 Zac Yatesoll OFFICE AUTOMATION TECHNICIAN-CRNP Work Phone: [facility] 09-02-2024 14:21-0400 Body weight 92.08 kg Zac Yatesoll OFFICE AUTOMATION TECHNICIAN-CRNP Work Phone: [facility] 09-02-2024 14:21-0400 Diastolic blood pressure 95 mm[Hg] Zac Palm OFFICE AUTOMATION TECHNICIAN-CRNP Work Phone: [facility] 09-02-2024 14:21-0400 Systolic blood pressure 155 mm[Hg] Zac Palm OFFICE AUTOMATION TECHNICIAN-CRNP Work Phone: [facility] 08-12-2024 15:36-0400 Body mass index (BMI) [Ratio] 34.64 kg/m2 Fay VALLEJO Work Phone: [facility] 08-12-2024 15:36-0400 Body weight 91.54 kg Fay VALLEJO Work Phone: [facility] 08-12-2024 15:36-0400 Diastolic blood pressure 78 mm[Hg] Fay VALLEJO Work Phone: [facility] 08-12-2024 15:36-0400 Systolic blood pressure 116 mm[Hg] Fay VALLEJO Work Phone: [facility] 07-23-2024 09:41-0400 Body height 162.6 cm Tien Chacko DPM Work Phone: [facility] 07-23-2024 09:41-0400 Body mass index (BMI) [Ratio] 35.02 kg/m2 Tien Chacko DPM Work Phone: [facility] 07-23-2024 09:41-0400 Body weight 92.53 kg Tien Chacko DPM Work Phone: [facility] 07-23-2024 09:41-0400 Respiratory rate 18 /min Tien Chacko DPM Work Phone: [facility] 07-20-2024 13:17-0400 Body mass index (BMI) [Ratio] 35.02 kg/m2 Breanne Perez PLASTIC MOLDING OPERATOR Work Phone: [facility] 07-20-2024 13:17-0400 Body weight 92.53 kg Breanne Chris PLASTIC MOLDING OPERATOR Work Phone: [facility] 07-20-2024 13:17-0400 Diastolic blood pressure 84 mm[Hg] Breanne Chris PLASTIC MOLDING OPERATOR Work Phone: [facility] 07-20-2024 13:17-0400 Systolic blood pressure 128 mm[Hg] Breanne Hualy PLASTIC MOLDING OPERATOR Work Phone: [facility] 07-09-2024 14:03-0400 Body height 162.6 cm Tien Chacko DPM Work Phone: [facility] 07-09-2024 14:03-0400 Body mass index (BMI) [Ratio] 34.33 kg/m2 Tien Chacko DPM Work Phone: [facility] 07-09-2024 14:03-0400 Body weight 90.72 kg Tien Chacko DPM Work Phone: [facility] 07-09-2024 14:03-0400 Respiratory rate 18 /min Tien Ricco DPM Work Phone: [facility] Encounters Encounter Date Encounter Type Care Provider Facility Start: 09-10-2024 End: 09-10-2024 ambulatory LUIS DEBBY Not Available Start: 09-10-2024 End: 09-10-2024 Online digital e/m svc est pt <7 d 5-10 minutes Luis Debby DO Work Phone: [facility] Comment on above: Abnormal biopsy resu lt Start: 09-07-2024 End: 09-07-2024 [facility] Result Encounter Fay VALLEJO Work Phone: [facility] Unsolicited Start: 09-07-2024 End: 09-07-2024 [facility] Result Encounter Fay VALLEJO Work Phone: [facility] Unsolicited Start: 09-02-2024 End: 09-02-2024 Office outpatient new 30 minutes Zac Palm OFFICE AUTOMATION TECHNICIAN-CRNP Work Phone: [facility] Comment on above: Dysphagia, unspecifi ed type (Primary Dx); Encounter for screening colonoscopy Start: 09-02-2024 End: 09-02-2024 ambulatory [facility] Start: 08-17-2024 End: 08-24-2024 Telephone encounter Zac Palm OFFICE AUTOMATION TECHNICIAN-CRNP Work Phone: [facility] Start: 08-12-2024 End: 08-12-2024 ambulatory Luis Debby Facility:[facility] Start: 08-12-2024 End: 08-12-2024 Departed Referred Luis Dbeby DO Work Phone: [facility] Path [facility] Start: 08-12-2024 End: 08-12-2024 Office outpatient [...] Start: 08-12-2024 End: 08-18-2024 Bamboo flowsheet Fay Ledesma PA Work Phone: [facility] Start: 08-12-2024 End: 08-18-2024 [facility] Result Encounter Fay VALLEJO Work Phone: [facility] External [facility] Unsolicited Start: 08-12-2024 End: 08-18-2024 External Result Encounter Luis Debbyena SINGLETARY Work Phone: [facility] Unsolicited Start: [...] Work Phone: [facility] Unsolicited Start: 07-22-2024 End: 07-22-2024 [facility] Result Encounter Breanne Perez NP Work Phone: [facility] Unsolicited Start: 07-21-2024 End: 07-21-2024 [facility] Result Encounter Breanne Chris PLASTIC MOLDING OPERATOR Work Phone: [facility] Unsolicited Start: 07-21-2024 End: 07-21-2024 [facility] Result Encounter Breanne Chris PLASTIC MOLDING OPERATOR Work Phone: [facility] Unsolicited Start: 07-20-2024 End: 07-20-2024 Bamboo flowsheet Breanne Perez PLASTIC MOLDING OPERATOR Work Phone: [facility] Start: 07-20-2024 End: 07-20-2024 Bamboo flowsheet Breanne Perez PLASTIC MOLDING OPERATOR Work Phone: [facility] Start: 07-20-2024 End: 07-20-2024 Office outpatient visit 15 minutes Breanne Perez PLASTIC MOLDING OPERATOR Work Phone: [facility] Comment on above: Hormone disorder (Pr imary Dx); Dysphagia, unspecified type; Perimenopausal vasomotor symptoms Start: 07-20-2024 End: 07-20-2024 ambulatory BREANNE PEREZ Not Available Start: 07-09-2024 End: 07-09-2024 Office [...] TIEN CHACKO Not Available Start: 04-23-2023 ambulatory Facility:[facility] Start: 06-29-2022 End: 06-29-[address] FAREED CARLOS . Facility:[facility] Start: 01-10-2022 End: 01-10-[address] FAREED CARLOS . Facility:[facility] Start: 01-09-2022 End: 01-09-2022 ambulatory BREANNE PEREZ Facility:[facility] Start: 01-08-2022 End: 01-08-[address] FAREED CARLOS . Facility:[facility] Start: 01-01-2022 End: 01-01-2022 ambulatory BREANNE PEREZ Facility: Procedures Date Procedure Procedure Detail Performing Clinician Start: 09-07-2024 MM TOMOSYNTHESIS SCR EENING BI Fay VALLEJO Work Phone: Start: 09-07-2024 Mammography aFy VALLEJO Work Phone: Start: 08-12-2024 IGP,APTIMA HPV,AGE GDLN Fay VALLEJO Work Phone: Start: 08-12-2024 Microscopic observat ion [Identifier] in Cervix by Cyto stain Zac Palm OFFICE AUTOMATION TECHNICIAN-CRNP Work Phone: Start: 08-12-2024 PATHOLOGY REQUEST FO R LAB [facility]LE[facility] Luislinette Guardado DO Work Phone: Start: 07-22-2024 Us soft tissue head & neck real time imge docm Breanne Perez PLASTIC MOLDING OPERATOR Work Phone: Start: 07-21-2024 ALL T3 FREE Breanne del real PLASTIC MOLDING OPERATOR Work Phone: Start: 07-21-2024 ALL THYROID STIM HORMONE Breanne Perez PLASTIC MOLDING OPERATOR Work Phone: Start: 07-21-2024 ALL THYROXINE (T4) Andrey Perez PLASTIC MOLDING OPERATOR Work Phone: Start: 07-21-2024 [facility] GLUCOSE BLOOD Rustam Perez PLASTIC MOLDING OPERATOR Work Phone: Start: 06-29-2021 Mammography Tien nieves DPM Work Phone: Plan of Treatment Date Care Activity Detail Author Start: 04-23-2033 DTaP,Tdap and Td Vaccines (2 - Td or Tdap) DTaP,Tdap and Td Vaccines (2 - Td or Tdap) [facility] Start: 08-13-2027 Screening for malignant neoplasm of cervix Pap Smear [facility] Start: 09-07-2025 Screening for malignant neoplasm of breast Mammogram [facility] Start: 09-02-2025 Adult BMI Screening Adult BMI Screening [facility] Start: 09-02-2025 Tobacco Screening Tobacco Screening [facility] Start: 12-07-2024 Influenza vaccination Influenza Vaccine [facility] Start: 09-10-2024 End: 09-10-2024 Patient encounter procedure 09/10/2024 8:00 AM EDT Office Visit [facility] [address] [place] [id number] Luis Guardado DO [address] [place] [address] [facility] Start: 08-20-2024 End: 08-20-2024 Patient encounter procedure 08/20/2024 8:30 AM EDT Office Visit [facility] [address] [facility] [address] [place] [address] Tien Chacko, DPLorne [address] [facility] [address] [place] [address] [facility] Start: 08-12-2024 End: 08-12-2024 Patient encounter procedure [facility] Comment on above: Arrived Start: 08-12-2024 End: 08-12-2025 DXA Skeletal system Views for bone density DEXA bone density Imaging Routine Postmenopausal state Expected: 08/12/2024 (Approximate), Expires: 08/12/2025 [facility] Comment on above: Expected: 08/12/2024 (Approximate), Expi res: 08/12/2025 Start: 08-12-2024 End: 10-12-2025 MG Breast - bilateral Screening Bilateral screening mammogram Imaging Routine Breast cancer screening by mammogram Expected: 08/12/2024, Expires: 10/12/2025 [facility] Work Phone: Comment on above: Expected: 08/12/2024, Expires: Start: 08-12-[address] [facility] Start: 07-23-2024 End: 08-22-2024 Alanine aminotransferase [Enzymatic activity/volume] in Serum or Plasma ALANINE AMINOTRANSFERASE Lab Routine Onychomycosis Expected: 07/23/2024 (Approximate), Expires: 08/22/2024 [facility] Comment on above: Expected: 07/23/2024 (Approximate), Expi res: 08/22/2024 Start: 07-23-2024 End: 08-22-2024 Aspartate aminotransferase [Enzymatic activity/volume] in Serum or Plasma ASPARTATE AMINO TRANSFERASE Lab Routine Onychomycosis Expected: 07/23/2024 (Approximate), Expires: 08/22/2024 [facility] Work Phone: Comment on above: Expected: 07/23/2024 (Approximate), Expi res: 08/22/2024 Start: 07-23-2024 End: 07-23-2024 Patient encounter procedure [facility] Comment on above: Onychocryptosis (Primary Dx); Toe pain, right; Abscess of toe, right; Onychomycosis; Toe pain, left Start: 07-20-2024 End: 07-20-2025 C-peptide C-peptide Lab Routine Hormone disorder Expected: 07/20/2024 (Approximate), Expires: 07/20/2025 [facility] Comment on above: Expected: 07/20/2024 (Approximate), Expi res: 07/20/2025 Start: 07-20-2024 End: 07-20-2025 Cortisol free Cortisol, free Lab Routine Hormone disorder Expected: 07/20/2024 (Approximate), Expires: 07/20/2025 [facility] Comment on above: Expected: 07/20/2024 [...] procedure 07/09/2024 2:10 PM EDT Office Visit [facility] [address] [facility] [address] [place] [address] Tien Chacko, DPLorne [address] [facility] [address] [place] [address] Arrived [facility] Comment on above: Arrived Start: 02-04-2024 Administration of varicella zoster vaccine Zoster (Shingles) Vaccine (1 of 2) [facility] Start: 12-08-2023 COVID-19 Vaccine ( season) COVID-19 Vaccine () [facility] Start: 06-29-2022 Screening for malignant neoplasm of breast Mammogram [facility] Start: 1995 Screening for malignant neoplasm of cervix Pap Smear [facility] Start: 1993 DTaP,Tdap and Td Vaccines (1 - Tdap) DTaP,Tdap and Td Vaccines (1 - Tdap) [facility] Start: 02-04-1992 Adult BMI Follow Up Plan Adult BMI Follow Up Plan [facility] Start: 02-04-1992 Adult BMI Screening Adult BMI Screening [facility] Start: 1986 Depression Screening Depression Screening [facility] Start: 1986 Tobacco Screening Tobacco Screening [facility] Start: 1974 Screening for malignant neoplasm of colon [facility] Start: 1974 Tobacco Counseling Tobacco Counseling [facility] End: 09-02-2025 Colonoscopy Colonoscopy GI Routine Encounter for screening colonoscopy 1 Occurrences starting 09/02/2024 until 09/02/2025 [facility] Comment on above: 1 Occurrences starting 09/02/2024 until 09/02/2025 DHEA-sulfate DHEA-sulfate Lab Routine Hormone disorder Ordered: 07/20/2024 [facility] Comment on above: Ordered: 07/20/2024 End: 09-02-2025 Esophagogastroduodenoscopy EGD GI Routine Dysphagia, unspecified type 1 Occurrences starting 09/02/2024 until 09/02/2025 [facility] Work Phone: Comment on above: 1 Occurrences starting 09/02/2024 until 09/02/2025 Estradiol Estradiol Lab Ro utine Hormone disorder Ordered: 07/20/2024 [facility] Work Phone: Comment on above: Ordered: 07/20/2024 Estrone Estrone Lab Rout ine Hormone disorder Ordered: 07/20/2024 [facility] Comment on above: Ordered: 07/20/2024 Ferritin [Mass/volum e] in Serum or Plasma Ferritin Lab Routine Hormone disorder Ordered: 07/20/2024 [facility] Comment on above: Ordered: 07/20/2024 Progesterone Progesterone Lab Routine Hormone disorder Ordered: 07/20/2024 [facility] Comment on above: Ordered: 07/20/2024 Sex hormone binding globulin Sex hormone binding globulin Lab Routine Hormone disorder Ordered: 07/20/2024 [facility] Comment on above: Ordered: 07/20/2024 T3, reverse T3, reverse Lab Routine Hormone disorder Ordered: 07/20/2024 [facility] Comment on above: Ordered: 07/20/2024 TESTOSTERONE, FREE TESTOSTERONE, FREE Lab Routine Hormone disorder Ordered: 07/20/2024 [facility] Comment on above: Ordered: 07/20/2024 Testosterone, free, total Testos terone, free, total Lab Routine Hormone disorder Ordered: 07/20/2024 [facility] Comment on above: Ordered: 07/20/2024 THIN PREP TIS PAP AND HR HPV DNA THIN PREP TIS PAP AND HR HPV DNA Pathology and Cytology Routine Well woman exam with routine gynecological exam Ordered: 08/12/2024 [facility] Comment on above: Ordered: 08/12/2024 Thyroid peroxidase antibody Thyr oid peroxidase antibody Lab Routine Hormone disorder Ordered: 07/20/2024 [facility] Comment on above: Ordered: 07/20/2024 Thyroxine (T4) free [Mass/volume] in Serum or Plasma T4, free Lab Routine Hormone disorder Ordered: 07/20/2024 [facility] Comment on above: Ordered: 07/20/2024 Triiodothyronine (T3 ) Free [Mass/volume] in Serum or Plasma T3, free Lab Routine Hormone disorder Ordered: 07/20/2024 [facility] Comment on above: Ordered: 07/20/2024 Immunizations Immunization Date Immunization Notes Care Provider Fa [facility] 01-28-2024 influenza virus vaccine, unspecified formulation Zac Palm OFFICE AUTOMATION TECHNICIAN-CRNP Work Phone: [facility] Payers Date Payer Category Payer Self-pay 2022 [facility] [id number] 2022 [facility] - PPO [employer] [id number] 2022 Unknown [id number] 2019 Unknown [id number] 1974 Unknown [id number]. 593 1974 Unknown [id number] [id number]. 593 1974 Unknown [id number] [id number]. 593 1974 Unknown [id number] [id number]. 593 1974 Unknown [id number] [id number]. 593 1974 Unknown [id number] [id number]. 1286 1974 Unknown [id number] [id number]. 1259 1974 Unknown [id number] [id number]. 1259 1974 Unknown [id number] 2.16.840.1.892807.3.579.2. 1259 1974 Unknown [id number] [id number]. 1259 1974 Unknown [id number] [id number]. 1259 Social History Date Type Detail Facility Start: 11-26-2022 End: 07-09-2024 Tobacco smoking status [facility] Smokes tobacco daily [facility] History of tobacco use Cigarette Smoker N [facility] Start: 07-25-2023 End: 08-12-2024 Alcoholic beverage intake Current drinker of alcohol (finding) [facility] Start: 07-25-2023 End: 07-23-2024 History of Social function [facility] Start: 07-25-2023 End: 07-23-2024 Tobacco use panel [facility] Start: 11-26-2022 Alcohol Comment 2-4x a month i n the past year [facility] Start: 1975 Sex assigned at Not on file N [facility] Tobacco smoking stat us [facility] Unknown if ever smoked [facility] Start: 11-11-2014 End: 08-14-2024 Sex Female (finding) [facility] Start: 1975 Sex Assigned At Female F [facility] Childcare Unknown [facility] Start: 09-02-2024 Tobacco use and exposure Smokeless tobacco non-user [facility] Start: 09-02-2024 Alcoholic beverage intake Lifetime non-drinker (finding) [facility] Clinical Notes 07-09-2024 to 09-10-2024 Teresita Vyas LPN - 09/10/2024 8:00 AM Chao Palm APRN-JOE - 09/02/2024 2:30 PM EDTTelephone Encounter - Zenaida Antunez - 08/17/2024 11:31 AM YONI Bartholomew - 08/12/2024 3:00 PM EDT Note Date & Type Note Facility 09-10-2024 History of Presen t illness Narrative Reason for Appointment: Patient ID: Katharine Arrington is a 49 y.o. female who presents for No chief complaint on file. Patient presents today via telephone call for a telehealth appointment. Patients Phone #: [phone] (mobile) Date: 09/10/2024 Time: 8:48 AM of the visit Platform Used: Audio call performed via in house telephone system. Location of Patient and Provider: Patient at home, provider at clinic Consent for Telehealth: Patient provided verbal consent to conduct the visit virtually via audio only phone call Current Medications: has a current medication list which includes the following prescription(s): venlafaxine xr. Medical History: Active Ambulatory Problems Diagnosis Date Noted Abnormal biopsy result 09/10/2024 Resolved Ambulatory Problems Diagnosis Date Noted No Resolved Ambulatory Problems Past Medical History: Diagnosis Date Diverticulitis of colon without hemorrhage Insomnia Leucocytosis Lumbar radiculopathy, right Family History Problem Relation Name Age of Onset Heart disease Father Stroke Maternal Grandmother Heart disease Maternal Grandfather Cancer Paternal Grandmother Social History Tobacco Use Smoking status: Every Day Current packs/day: 0.25 Types: Cigarettes Smokeless tobacco: Not on file Substance Use Topics Alcohol use: Yes Comment: 2-4x a month in the past year Drug use: Not on file Past Surgical History: Procedure Laterality Date APPENDECTOMY CHOLECYSTECTOMY 1996 CYST REMOVAL from Thigh DILATION AND CURETTAGE x2 HYSTERECTOMY OTHER SURGICAL HISTORY 2010 Uterine Ablation PELVIC LAPAROSCOPY TONSILLECTOMY 1991 WISDOM TOOTH EXTRACTION Allergies Allergen Reactions Metronidazole Other neuro Other Reaction(s): Lymphoreticular Cancer, Mental Status Change, Unknown Vitals: Estimated body mass index is 34.64 kg/m as calculated from the following: Height as of 07/23/24: 5' 4 . Weight as of 08/12/24: 201 lb 12.8 oz. BP: No LMP recorded. Patient has had a hysterectomy. Assessment/Plan Encounter Diagnosis Name Primary? Abnormal biopsy result Called patient to review pathology results. Informed her that provider will reach out to Pathologist to clarify further for mild squamous hyperplasia. Patient denies chronic pain or irritation. Informed patient that if she develops any symptoms so then she can be treated for Lichen Sclerosis. Discussed with patient that colposcopy may need to be performed based on what pathologist states. Patient aware that if further testing is needed provider will reach out and if not then will continue with routine annual appointment that will need to be scheduled. Today's telehealth visit consisted of spending 7 minutes talking to patient on the phone. Documented by Teresita Vyas LPN on behalf of: Luis Guardado DO documented in this encounter [facility] 09-02-2024 History of Presen t illness Narrative [...] Laterality Date APPENDECTOMY DURING CHILDHOOD CHOLECYSTECTOMY AT [facility] HYSTERECTOMY 2010 AT [facility], BY DEBBY TONSILLECTOMY 1990 Allergies Allergen Reactions [...] Disp: 30 capsule, Rfl: 1 peg 3350-sod sulf,dumq-npc-cxb 178.7-7.3-0.5 gram recon soln, Take 1 kit [...] because she is an employee of the [employer]. Evaluation included: Preparing to see the patient (e.g., review of tests) Obtaining and/or reviewing separately obtained history Performing a medically appropriate examination and/or evaluation Counseling and educating the patient/family/caregiver Referring and communicating with other health farm or ranch animal caretaker Dysphagia, unspecified type [R13.10] RYAN ROSALES [facility] General Surgery [place] This note was created with the assistance of a speech recognition program. While intending to generate a timely document that accurately reflects the content of the visit, no guarantee can be provided that every grammatical or spelling mistake has been or will be identified or corrected. Thank you for your understanding. RYAN Rosales 09/02/24 [id number] documented in this encounter [facility] [employer] [facility] 08-17-2024 Miscellaneous Notes Formattin g of this [...] schedule an appointment. documented in this encounter [facility] 08-17-2024 Telephone encount er Note Called Katharine regarding the trouble swallowing referral that our office received from Dr Guardado, left a message on voicemail to call the office back to schedule an appointment. [facility] 08-17-2024 Telephone encount er Note Called Katharine regarding the referral that our office received, left a message on voicemail to call the office back to schedule an appointment. [facility] 08-17-2024 Telephone encount er Note Called Katharine regarding the referral that our office received, left a message on voicemail to call the office back to schedule an appointment. [facility] 08-12-2024 History of Presen t illness Narrative [...] nursing note reviewed. Exam conducted with a press assistant and feeder present. Vitals: Estimated body mass index is [...] Breanne Perez NP documented in this encounter [facility] 07-23-2024 History of Presen t illness Narrative [...] Tien Chacko DPM documented in this encounter [facility] 07-20-2024 History of Presen t illness Narrative [...] nursing note reviewed. Exam conducted with a press assistant and feeder present. Vitals: Estimated body mass index is [...] Breanne Perez NP documented in this encounter [facility] 07-09-2024 History of Presen t illness Narrative [...] in this encounter [facility] Evaluation note Diagnosis Onychocryptosis- Primary Ingrowing [...] tissues of limb documented in this encounter [facility] HealthcareEvaluation note* Diagnosis Onychocryptosis- Primary Ingrowing nail Toe pain, right Pain in soft tissues of limb Abscess of toe, right Onychomycosis Dermatophytosis of nail Toe pain, left Pain in soft tissues of limb documented in this encounter [facility] HealthcareEvaluation note* Diagnosis Well woman exam with routine gynecological exam Routine gynecological examination Breast cancer screening by mammogram Postmenopausal state Asymptomatic postmenopausal status (age-related) (natural) Onychomycosis- Primary Dermatophytosis of nail Toe pain, left Pain in soft tissues of limb Toe pain, right Pain in soft tissues of limb documented in this encounter [facility] HealthcareEvaluation noteNo assessment information availableBrown Memorial Hospital Work Phone: Evaluation note* Diagnosis Dysphagia, unspecified type- Primary Encounter for screening colonoscopy documented in this encounter [facility]* Diagnosis Abnormal biopsy result documented [facility] HospitalInstructionsNot on filedocumented in this encounterProBarney [facility] SystemInstructionsNot on filedocumented in this encounterProBarney [facility] Summary Purpose Family History No Family [...] DATE CREATED AUTHOR AUTHOR'S ORGANIZ ATION 05/08/2023 [facility] DATE CREATED AUTHOR AUTHOR'S ORGANIZ ATION 08/19/2024 [facility] DATE CREATED AUTHOR AUTHOR'S ORGANIZ ATION 09/05/2024 [facility] DATE CREATED AUTHOR AUTHOR'S ORGANIZ ATION 09/12/2024 [facility] [employer] Care Teams (unrecognized sec tion and content) Barrel Dedenting Machine Operator Relationship Specialty Start Date End Date Case Moe MD [address] [place] [address] PCP - General Internal Medicine 08/14/22 [employer] Machine Operator Relationship Specialty Start Date End Date Case Moe MD [address] [place] [address] PCP - General Internal Medicine 08/14/22 [employer] Machine Operator Relationship Specialty Start Date End Date Case Moe MD [address] [place] [address] PCP - General Internal Medicine 08/14/22 [employer] Dedenting Machine Operator Relationship Specialty Start Date End Date Case Moe MD [address] [place] [address] PCP - General Internal Medicine 08/14/22 [employer] Dedenting Machine Operator Relationship Specialty Start Date End Date Case Moe MD [address] [place] [address] PCP - General Internal Medicine 08/14/22 Barrel Dedenting Machine Operator Relationship Specialty Start Date End Date Case Moe MD [address] [place] [address] PCP - General Internal Medicine 08/14/22 Bar[employer] Dedenting Machine Operator Relationship Specialty Start Date End Date Case Moe MD [address] [place] [address] PCP - General Internal Medicine 08/14/22 [employer] Dedenting Machine Operator Relationship Specialty Start Date End Date Case Moe MD [address] [place] [address] PCP - General Internal Medicine 08/14/22 Team Status: Inactive Member Role Status Dates Luis Guardado DO Attending Provider Active Start : August 12, 2024 End: August 12, 2024 [employer] Ded[employer] Machine Operator Relationship Specialty Start Date End Date Fareed Carlos MD [address] [facility] [place] [address] PCP - General Family Medicine 08/17/24 [employer] Dedenting Machine Operator Relationship Specialty Start Date End Date Fareed Carlos MD [address] [facility] [place] [address] PCP - General Family Medicine 08/17/24 Barrel Dedenting Machine Operator Relationship Specialty Start Date End Date Case Moe MD [address] [facility] [address] [place] [address] PCP - General Internal Medicine 08/14/22 Reason for Visit (unrecogniz ed section and content) Reason Comments Ingrown Toenail Bl gt ingrown Reason Comments Menopause Reason Comments Follow-up 14d s/p avulsion/ la misil Reason Comments Well Women Visit Reason Comments Difficulty Swallowing TROUBLE SWALLOWING , REFERRED BY DR RODNEY COLONOSCOPY Goals (unrecognized section and content) Goals [...] BE BASED ON THE PRIMARY CLINICAL RECORDS. [employer] provides no warranty or guarantee of the accuracy or completeness of information in this document.
== END 2024-09-19 11:07 | disposition home or self-care (01) ==
PROVIDERS: Visit Provider Nurse Practitioner Family
DX: M79.672 Pain in left foot (principal); M77.32 Calcaneal spur, left foot
CPT/HCPCS: 73630